=== PATIENT | female | born 1940 | race Caucasian/White ===

== ENCOUNTER 2016-08-18 15:12 | Inpatient (IN) | payer OTHER ==
[~2016-08-18] VITALS: Ht 172.7 cm; Wt 58.5 kg
[~2016-08-18 15:12] MED LIST: CALC-51
[2016-08-18] MEDS ORDERED: SODIUM CHLORIDE 0.9% 1000ML 1,000 ML IV STA (15:18)
--- NOTE | 2016-08-18 15:36 | EMERGENCY ROOM VISIT NOTE ---
History Report prepared by Richard: Jun Young Under the Supervision of: Dr. Ephraim Hoyt M.D. First contact with patient: 15:18 Stated Complaint: WEAKNESS, AB PAIN, UNABLE TO AMBULATE History of Present Illness The patient is a 76 year old female who presents to the Emergency Room with complaints of constant lower left abdominal pain beginning 4-5 days prior to arrival. She currently rates her discomfort as a 5/10 ins severity. The patient associates a fever, diarrhea, global weakness, and a possible bladder infection with today's symptoms. The patient notes she is currently receiving chemotherapy for her bladder and lung cancers. She states her last chemotherapy was four days ago, and she received two pints of blood two days ago. The patient notes it is normal for her to have a blood transfusion after her chemotherapy. She states she recently had C. Diff but is done with the episode. The patient notes she has a nephrostomy tube on her left side that was placed on May 21 of this year. She states she had her three month change for her tube earlier this month. The patient notes she does produce a little of her own urine. She states she takes prednisone and pyridostigmine for her myasthenia. Pt denies LOC, headache, chills, diaphoresis, visual changes, neck pain, chest pain, breathing difficulties, nausea, vomiting, back pain, melena, hematochezia , numbness, lymphadenopathy, rash, or other complaints. Source of History: patient Onset: 4-5 days [employer] Position: abdomen (LLQ) Symptom Intensity: 5/10 Timing: constant Associated Symptoms: + abdominal pain, + diarrhea, + fevers, + weakness ( global) Note: Associated symptoms: possible bladder infection. Review of Systems See HPI for pertinent positives and negatives. A total of ten systems were reviewed and were otherwise negative. Past Medical & Surgical Medical Problems: (1) Bladder cancer (2) Chronic steroid use (3) CKD (chronic kidney disease), stage III (4) Colitis (5) COPD (chronic obstructive pulmonary disease) (6) Diabetes (7) Dyslipidemia (8) Febrile neutropenia (9) Hypothyroidism (10) Lung cancer (11) Myasthenia gravis (12) Nodule of right lung (13) Osteoporosis Surgical Problems: (1) Hx of tonsillectomy (2) S/P tonsillectomy and adenoidectomy Family History Cancer Social History Smoking Status: Former Smoker Marital Status: single Occupation Status: retired Current/Historical Medications Scheduled Calcium Carbonate-Cholecalcife (Caltrate 600+D), 2 TABS PO DAILY Cholecalciferol (Vitamin D 400 Iu), 400 INTER.UNIT PO DAILY Levothyroxine Sodium (Levothyroxine Sodium), 1 TAB PO DAILY Multivitamin (Multivitamin), 1 TAB PO DAILY Prednisone (Prednisone), 20 MG PO QD Pyridostigmine Carlin (Mestinon), 180 MG PO BID Scheduled PRN Ondansetron Hcl (Zofran), 8 MG PO TID PRN for Nausea Prochlorperazine Maleate (Compazine), 10 MG PO Q6H PRN for Nausea Allergies Coded Allergies: Statins (Unverified Adverse Reaction, Unknown, MUSCLE PAIN, 08/18/16) Physical Exam Vital Signs Date Time Temp Pulse Resp B/P Pulse Ox O2 Delivery O2 Flow Rate FiO2 08/18/16 19:38 93 08/18/16 19:07 86 23 95 08/18/16 19:02 86 36 95 08/18/16 18:58 123/41 08/18/16 18:57 86 30 96 08/18/16 18:52 87 32 95 08/18/16 18:47 86 25 96 08/18/16 18:42 91 26 94 08/18/16 18:37 92 30 97 08/18/16 18:32 85 19 94 08/18/16 18:27 86 19 94 08/18/16 18:22 86 19 94 08/18/16 18:17 83 18 94 08/18/16 18:12 83 19 94 08/18/16 18:07 86 21 94 08/18/16 18:02 86 24 95 08/18/16 17:59 107/26 08/18/16 17:57 84 35 95 08/18/16 17:52 83 25 95 08/18/16 17:47 88 31 95 08/18/16 17:42 88 28 95 08/18/16 17:41 101/41 08/18/16 16:58 133/62 08/18/16 16:57 80 16 95 08/18/16 16:52 83 17 94 08/18/16 16:47 83 19 94 08/18/16 16:42 82 24 94 08/18/16 16:37 86 20 93 08/18/16 16:32 82 31 95 08/18/16 16:27 86 36 96 08/18/16 16:22 81 38 96 08/18/16 16:17 84 35 95 08/18/16 16:12 81 29 96 08/18/16 16:07 78 35 95 08/18/16 16:02 83 24 96 08/18/16 15:58 125/65 08/18/16 15:57 83 29 96 08/18/16 15:52 87 23 96 08/18/16 15:47 99 26 95 08/18/16 15:42 91 30 95 08/18/16 15:37 89 24 95 08/18/16 15:36 89 08/18/16 15:32 88 16 95 08/18/16 15:27 86 15 97 08/18/16 15:23 37.3 89 25 127/63 96 Room Air 08/18/16 15:22 93 21 96 08/18/16 15:20 127/63 Physical Exam GENERAL: Awake, alert, tired-appearing, in no distress HENT: Normocephalic, atraumatic. Oropharynx unremarkable. EYES: Normal conjunctiva. Sclera non-icteric. NECK: Supple. No nuchal rigidity. FROM. No JVD. RESPIRATORY: Clear to auscultation. CARDIAC: Regular rate, normal rhythm. Extremities warm and well perfused. Pulses equal. ABDOMEN: Soft, non-distended. Lower left quadrant tenderness to palpation. No rebound or guarding. No masses. : Left nephrostomy tube without any redness, drainage, or tenderness. RECTAL: Deferred. MUSCULOSKELETAL: Chest examination reveals no tenderness. The back is symmetrical on inspection without obvious abnormality. There is no CVA tenderness to palpation. No joint edema. LOWER EXTREMITIES: Calves are equal size bilaterally and non-tender. No edema. No discoloration. NEURO: Normal sensorium. No sensory or motor deficits noted. SKIN: No rash or jaundice noted. Medical Decision & Procedures ER Provider Diagnostic Interpretation: CT: Radiology results as stated below per my review and radiologist interpretation CT SCAN OF THE ABDOMEN AND PELVIS WITHOUT CONTRAST CLINICAL HISTORY: Left abd pain, possible UTI, Left Nephrostomy, Bladder CA COMPARISON STUDY: 04/28/2016 TECHNIQUE: CT scan of the abdomen and pelvis was performed from the lung bases to the proximal femurs. Images are reviewed in the axial, sagittal, and coronal planes. IV contrast was not administered for this examination. CT DOSE: 271.08 mGy.cm FINDINGS: Lower chest: There is underlying emphysema. There is a stable 4 mm right lower lobe pulmonary nodule. Liver: There is a stable 11 mm hypodensity within the hepatic dome. There is trace perihepatic fluid. There is a stable 19 mm hypodensity within the right hepatic lobe. These lesions approach water attenuation and likely represent cysts. Gallbladder: Cholelithiasis Spleen: Normal in size and attenuation. Pancreas: Unremarkable. Adrenal glands: Unremarkable. Kidneys: There is a 15 mm upper pole left renal cyst. There is residual a left-sided nephrostomy tube. There is no significant hydronephrosis. No ureteral or bladder calculi are visualized. Bowel: There are no transition zones indicate bowel obstruction. There is scott diverticulosis. There is diffuse colonic wall thickening with areas of infiltration involving the pericolonic fat. The findings are suggestive of a pancolitis. Peritoneum: There is trace free fluid. No free air is visualized. Vasculature: The abdominal aorta is normal in course and caliber. Adenopathy: None. Pelvic viscera: The bladder, and pelvic viscera are unremarkable. Skeletal structures: No destructive osseous lesions are seen. IMPRESSION: 1. No evidence of bowel obstruction. No evidence of free air 2. Scott diverticulosis 3. Diffuse colonic wall thickening with infiltration of the pericolonic fat. The findings are indicative of a pancolitis 4. Cholelithiasis 5. Trace ascites 6. Stable 4 mm right lower lobe pulmonary nodule Electronically signed by: Julio C Levy M.D. 08/18/2016 5:43 PM Laboratory Results 08/18/16 16:18 Red Blood Count 3.85, Mean Corpuscular Volume 90.4, Mean Corpuscular Hemoglobin 31.7, Mean Corpuscular Hemoglobin Concent 35.1, Mean Platelet Volume 10.0, Neutrophils (%) (Auto) 78.6, Lymphocytes (%) (Auto) 8.1, Monocytes (%) (Auto) 10.8, Eosinophils (%) (Auto) 0.3, Basophils (%) (Auto) 0.3, Neutrophils # (Auto ) 2.83, Lymphocytes # (Auto) 0.29, Monocytes # (Auto) 0.39, Eosinophils # (Auto ) 0.01, Basophils # (Auto) 0.01 08/18/16 16:18 Test 08/18/16 15:55 08/18/16 16:18 Urine Color YELLOW Urine Appearance TURBID (CLEAR) Urine pH >= 9.0 (4.5-7.5) Urine Specific [place] 1.014 (1.000-1.030) Urine Protein 4+ (NEG) Urine Glucose (UA) 2+ (NEG) Urine Ketones NEG (NEG) Urine Occult Blood NEG (NEG) Urine Nitrite NEG (NEG) Urine Bilirubin NEG (NEG) Urine Urobilinogen NEG (NEG) Urine Leukocyte Esterase TRACE (NEG) Urine WBC (Auto) 5-10 /hpf (0-5) Urine RBC (Auto) 10-30 /hpf (0-4) Urine Hyaline Casts (Auto) 5-10 /lpf (0-5) Urine Epithelial Cells (Auto) >30 /lpf (0-5) Urine Bacteria (Auto) 4+ (NEG) Urine Crystals TRIPLE PHOSPHATE Urine Pathogenic Casts /lpf (0) Urine Yeast (Auto) PRESENT (NONE PRSENT) White Blood Count 3.60 K/uL (4.8-10.8) Red Blood Count 3.85 M/uL (4.2-5.4) Hemoglobin 12.2 g/dL (12.0-16.0) Hematocrit 34.8 % (37-47) Mean Corpuscular Volume 90.4 fL (80-100) Mean Corpuscular Hemoglobin 31.7 pg (25-34) Mean Corpuscular Hemoglobin Concent 35.1 g/dl (32-36) Platelet Count 129 K/uL (130-400) Mean Platelet Volume 10.0 fL (7.4-10.4) Neutrophils (%) (Auto) 78.6 % Lymphocytes (%) (Auto) 8.1 % Monocytes (%) (Auto) 10.8 % Eosinophils (%) (Auto) 0.3 % Basophils (%) (Auto) 0.3 % Neutrophils # (Auto) 2.83 K/uL (1.4-6.5) Lymphocytes # (Auto) 0.29 K/uL (1.2-3.4) Monocytes # (Auto) 0.39 K/uL (0.11-0.59) Eosinophils # (Auto) 0.01 K/uL (0-0.5) Basophils # (Auto) 0.01 K/uL (0-0.2) RDW Standard Deviation 64.6 fL (36.4-46.3) RDW Coefficient of Variation 19.9 % (11.5-14.5) Immature Granulocyte % (Auto) 1.9 % Immature Granulocyte # (Auto) 0.07 K/uL (0.00-0.02) Nucleated RBC Absolute Count (auto) 0.02 K/uL (0-0) Nucleated Red Blood Cells % 0.5 % Anisocytosis PRESENT Macrocytosis PRESENT Anion Gap 11.0 mmol/L (3-11) Est Creatinine Clear Calc Drug Dose 57.6 ml/min Estimated GFR () 64.0 Estimated GFR (Non- 55.3 BUN/Creatinine Ratio 19.9 (10-20) Calcium Level 8.5 mg/dl (8.5-10.1) Magnesium Level 2.0 mg/dl (1.8-2.4) Total Bilirubin 0.8 mg/dl (0.2-1) Direct Bilirubin 0.2 mg/dl (0-0.2) Aspartate Amino Transf (AST/SGOT) 23 U/L (15-37) Alanine Aminotransferase (ALT/SGPT) 17 U/L (12-78) Alkaline Phosphatase 57 U/L (45-117) Troponin I < 0.015 ng/ml (0-0.045) Total Protein 5.8 gm/dl (6.4-8.2) Albumin 2.3 gm/dl (3.4-5.0) Lipase 94 U/L (73-393) Laboratory results reviewed by me Medications Administered Medications (Trade) Dose Ordered Sig/Nga Route Start Time Stop Time Status Last Admin Dose Admin Sodium Chloride (Nss 1000ml) 1,000 ml @ 125 mls/hr Q8H STAT IV 08/18/16 15:18 08/18/16 21:46 DC 08/18/16 16:34 125 MLS/HR Ciprofloxacin/ Dextrose (Cipro / D5w) 400 mg NOW STAT IV 08/18/16 18:26 08/18/16 18:28 DC 08/18/16 19:09 400 MG Metronidazole (Flagyl / Nss) 500 mg NOW STAT IV 08/18/16 18:26 08/18/16 18:28 DC 08/18/16 20:58 500 MG Pyridostigmine Carlin (Mestinon Tab) 180 mg BID PO 08/18/16 20:00 09/17/16 19:59 08/18/16 22:24 180 MG ECG Indication: weakness Rate (beats per minute): 87 Rhythm: normal sinus Findings: no acute ischemic change, no ectopy ED Course 1518: Ordered Sodium Chloride 1,000 ml @ 125 mls/hr IV. 1522: The patient was evaluated in room B10. A complete history and physical exam was performed. 1826: Ordered Flagyl / Nss 500 mg IV, Cipro / D5w 400 mg IV. 1836: Reevaluated the patient at this time, and she is feeling better. 1853: I spoke to Mirian Mancini PA-C, [facility] (Hospitalist) about the patient's case, and she will follow the patient for further evaluation. Medical Decision Triage Nursing notes reviewed. The patient's presentation and history were concerning for abdominal pain and weakness. Etiologies such as metabolic, infection, hypo/hyperglycemia, electrolyte abnormalities, cardiac sources, intracerebral event, toxicologic, neurologic, as well as others were entertained. The patient was evaluated. Her nephrostomy site appeared to be doing quite well from the outside. She was generally weak. She is more tender on the left side. Laboratory testing revealed a slight leukopenia and thrombocytopenia. The patient's urinalysis obtained from nephrostomy site was very concerning for infection. I did have a culture obtained from a fem-cath and a culture obtained from the nephrostomy. The patient underwent CT imaging which did reveal a pancolitis. She did not give a stool specimen. She was started on IV Cipro and IV Flagyl. She is generally weak and will need further evaluation and management in the hospital. The patient was hydrated with saline as well. She declined any analgesia. Consultation was made with the [facility] service. The patient was evaluated in the Emergency Room for further management. The chart was completed utilizing [employer] Speech voice recognition software. Grammatical errors, random word insertions, pronoun errors, and incomplete sentences are an occasional consequence of this system due to software limitations, ambient noise, and hardware issues. Any formal questions or concerns about the content, text, or information contained within the body of this dictation should be directly addressed to the physician for clarification. Consults Time Called: 1850 Consulting Physician: Mirian Mancini PA-C, [facility] (Hospitalist) Returned Call: 1852 I spoke to Mirian Mancini PA-C, [facility] (Hospitalist) about the patient's case, and she will follow the patient for further evaluation. Impression Primary Impression: Pancolitis Additional Impressions: UTI (urinary tract infection), Weakness Scribe Attestation The scribe's documentation has been prepared under my direction and personally reviewed by me in its entirety. I confirm that the note above accurately reflects all work, treatment, procedures, and medical decision making performed by me. Departure Information Dispostion Being Evaluated By Hospitalist (Mirian Mancini PA-C, [facility] (Hospitalist)) Referrals John Jaimes M.D. (PCP)
[2016-08-18 16:22] LABS: URINE APPEARANCE TURBID (CLEAR); URINE BILIRUBIN NEG (NEG); URINE COLOR YELLOW; URINE EPITHELIAL CELL AUTO >30 /lpf (0-5); URINE NITRITE NEG (NEG); URINE PH >= 9.0 (4.5-7.5); URINE SPECIFIC GRAVITY 1.014 (1.000-1.030); UROBILINOGEN NEG (NEG)
[2016-08-18 16:28] LABS: HEMATOCRIT 34.8 % (37-47); MEAN CELL VOLUME 90.4 fL (80-100); MEAN CORPUSCULAR HEMOGLOBIN 31.7 pg (25-34); MEAN CORPUSCULAR HGB CONC 35.1 g/dl (32-36); PLATELET COUNT 129 K/uL (130-400); RED BLOOD COUNT 3.85 M/uL (4.2-5.4)
[2016-08-18 16:44] LABS: ALT/SGPT 17 U/L (12-78); BLOOD UREA NITROGEN 20 mg/dl (7-18); BUN/CREATININE RATIO 19.9 (10-20); CALCIUM 8.5 mg/dl (8.5-10.1); CARBON DIOXIDE 24 mmol/L (21-32); CHLORIDE 100 mmol/L (98-107); CREATININE 0.98 mg/dl (0.60-1.20); GLUCOSE 99 mg/dl (70-99); POTASSIUM 3.9 mmol/L (3.5-5.1); SODIUM 135 mmol/L (136-145)
[2016-08-18 16:47] LABS: ALKALINE PHOSPHATASE 57 U/L (45-117); AST/SGOT 23 U/L (15-37)
[2016-08-18 16:50] LABS: ANISOCYTOSIS PRESENT; BASO % 0.3 %; BASO ABS # 0.01 K/uL (0-0.2); COMPLETE YES; EOS % 0.3 %; IG% 1.9 %; LYMPH % 8.1 %; LYMPH ABS # 0.29 K/uL (1.2-3.4); MONO % 10.8 %; NEUT % 78.6 %
[2016-08-18 16:51] LABS: MANUAL MICROSCOPIC REQUIRED? NO; REVIEW REQ? YES; SULFASALICYLIC ACID POS (NEG)
--- NOTE | 2016-08-18 17:45 | DIAGNOSTIC IMAGING REPORT ---
CT SCAN OF THE ABDOMEN AND PELVIS WITHOUT CONTRAST CLINICAL HISTORY: Left abd pain, possible UTI, Left Nephrostomy, Bladder CA COMPARISON STUDY: 04/28/2016 TECHNIQUE: CT scan of the abdomen and pelvis was performed from the lung bases to the proximal femurs. Images are reviewed in the axial, sagittal, and coronal planes. IV contrast was not administered for this examination. CT DOSE: 271.08 mGy.cm FINDINGS: Lower chest: There is underlying emphysema. There is a stable 4 mm right lower lobe pulmonary nodule. Liver: There is a stable 11 mm hypodensity within the hepatic dome. There is trace perihepatic fluid. There is a stable 19 mm hypodensity within the right hepatic lobe. These lesions approach water attenuation and likely represent cysts. Gallbladder: Cholelithiasis Spleen: Normal in size and attenuation. Pancreas: Unremarkable. Adrenal glands: Unremarkable. Kidneys: There is a 15 mm upper pole left renal cyst. There is residual a left-sided nephrostomy tube. There is no significant hydronephrosis. No ureteral or bladder calculi are visualized. Bowel: There are no transition zones indicate bowel obstruction. There is scott diverticulosis. There is diffuse colonic wall thickening with areas of infiltration involving the pericolonic fat. The findings are suggestive of a pancolitis. Peritoneum: There is trace free fluid. No free air is visualized. Vasculature: The abdominal aorta is normal in course and caliber. Adenopathy: None. Pelvic viscera: The bladder, and pelvic viscera are unremarkable. Skeletal structures: No destructive osseous lesions are seen. IMPRESSION: 1. No evidence of bowel obstruction. No evidence of free air 2. Scott diverticulosis 3. Diffuse colonic wall thickening with infiltration of the pericolonic fat. The findings are indicative of a pancolitis 4. Cholelithiasis 5. Trace ascites 6. Stable 4 mm right lower lobe pulmonary nodule Electronically signed by: Julio C Levy M.D. 08/18/2016 5:43 PM
[2016-08-18] MEDS ORDERED: METRONIDAZOLE 500MG / 100ML NSS IV STA (18:26)
[2016-08-18] MEDS ORDERED: CIPROFLOXACIN 400MG / 200ML D5W IV STA (18:26)
--- NOTE | 2016-08-18 19:57 | DIAGNOSTIC IMAGING REPORT ---
CHEST ONE VIEW PORTABLE CLINICAL HISTORY: tachypnea WEAKNESS, ABDOMINAL PAIN. INABILITY TO AMBULATE. COMPARISON STUDY: 06/28/2016 FINDINGS: The cardiac and mediastinal contours remain stable. There are bilateral pulmonary nodules slightly more prominent than on the prior study. There is no lobar consolidation. There is interstitial thickening. There are no pleural effusions.[ IMPRESSION: 1. The patient's bilateral pulmonary nodules appear slightly more prominent. The findings are consistent with metastatic disease 2. No evidence of acute parenchymal consolidation Electronically signed by: Julio C Levy M.D. 08/18/2016 7:55 PM
[2016-08-18] MEDS ORDERED: KETOROLAC TROMETHAMINE 15 MG/ML VIAL IV. PRN (20:15)
[2016-08-18] MEDS ORDERED: ENOXAPARIN 40 MG/0.4 ML SYR SQ SCH (20:15)
[2016-08-18] MEDS ORDERED: LORAZEPAM 2 MG/ML 1 ML VIAL IV PRN (20:15)
[2016-08-18] MEDS ORDERED: CEFEPIME IV 2,000 MG in DEXTROSE 5% 100ML 100 ML IV ONE (20:15)
[2016-08-18] MEDS ORDERED: HYDROmorphone INJ 1 MG/ML SYR IV PRN (20:15)
[2016-08-18] MEDS ORDERED: PROMETHAZINE HCL INJ 12.5 MG in SODIUM CHLORIDE 0.9% 50ML 50 ML IV PRN (20:15)
[2016-08-18] MEDS ORDERED: TRAMADOL HCL 50 MG TAB PO PRN (20:15)
[2016-08-18] MEDS ORDERED: ACETAMINOPHEN 325 MG TAB PO PRN (20:15)
[2016-08-18] MEDS ORDERED: ONDANSETRON INJ 2 MG/ML 2 ML VIAL IV PRN (20:15)
[2016-08-18] MEDS ORDERED: CEFEPIME CONSULT ACTIVE PRN ×2 (20:30)
[2016-08-18] MEDS ORDERED: NSS + 20MEQ KCL 1000ML 1,000 ML IV ONE (21:45)
[2016-08-18 21:52] VITALS: BP 128/67; PULSE 87; TEMP 36.7; O2SAT 92
[2016-08-18] MEDS ORDERED: LORAZEPAM INJ 0.5 MG in SYRINGE 0.75 ML IV PRN (22:00)
[2016-08-18] MEDS ORDERED: CEFEPIME IV 2000 MG in DEXTROSE 5% 100ML IV SCH (22:00)
--- NOTE | 2016-08-18 22:15 | HISTORY & PHYSICAL EXAMINATION ---
DATE OF ADMISSION: 08/18/2016 CHIEF COMPLAINT: Abdominal pain, weakness. Hx obtained from px and records. HISTORY OF PRESENT ILLNESS: Medical history significant for COPD, past tobacco abuse, NSCLC sp chemotx, bladder cancer, status post surgery, radiation, ongoing chemotherapy, chronic anemia, baseline hemoglobin 9, history of C. dif sp Vanco. hx myasthenia gravis on chronic steroid tx, chronic thrombocytopenia Recent confinement last month for neutropenic fever. UA grew pseudomonas. Discharged on Cipro course. Patient also developed C. dif. Dcd on p.o. vancomycin. Since discharge persistent diarrhea symptoms. The last few days increasing generalized weakness, left-sided achy abdominal pain. No cough symptoms, dark urine drainage from L nephrostomy. At the Emergency Room, the patient received Cipro for possible UTI. Flagyl for CT findings of possible colitis. MEDICAL HISTORY: As above. SURGERIES: Urologic procedures, tonsillectomy, adenoidectomy. HOME MEDICATIONS: Includes Caltrate, vitamin D, levothyroxine, multivitamins, Zofran, Compazine, prednisone, Mestinon. ALLERGIES: STATINS. FAMILY HISTORY: Hypertension. PERSONAL AND SOCIAL HISTORY: Past tobacco use. No chronic intake of alcoholic beverages. 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 REVIEW OF SYSTEMS: As per HPI, all other ROS negative. PHYSICAL EXAMINATION: VITAL SIGNS: Blood pressure was noted to be 118/74, pulse rate 88, RR 25, temperature 37.5, sats 96% on room air. GENERAL: Noted to be slightly uncomfortable, anxious, in no respiratory distress, looks younger for stated age. SKIN : pallor HEENT: Pale palpebral conjunctivae. Dry mucosa. NECK: No JVD. supple CHEST: Decreased breath sounds. HEART: Regular rate and rhythm. ABDOMEN: Some distention, tenderness on the left side. EXTREMITIES: No edema. no tenderness NEUROLOGIC: No gross focality. LABS: Hemoglobin was noted to be 12.2, platelets 129. Sodium 140 chloride 100, CO2 24, BUN 20, creatinine 0.9, glucose 100 IMAGING DATA: Chest x-ray, bilateral nodules. CT abdomen and pelvis without contrast showed no bowel obstruction; pancolitis, cholelithiasis. UA showed trace wbcs, esterase, hyaline casts. ASSESSMENT: 1. Generalized weakness immunocompromised patient, hx bladder cancer status post surgery, radiation, ongoing chemotherapy hx lung CA sp chemotx hx myasthenia gravis on chronic steroid tx multifactorial : pancolitis (? recurrent cdif, no sepsis) complicated urinary tract infection (hx Pseudomonas) clinical dehydration 2. chronic obstructive pulmonary disease, past tobacco abuse pulmo status at baseline 3. chronic thrombocytopenia 2 to chemotx. PLAN: GMF IVF. Follow urine cultures. Cefepime for now with Pseudomonas hx stool cdif, Flagyl for presumptive C. dif for now . Discontinue Flagyl if no C. dif. PT, OT evals. DVT prophylaxis, SCDs RE thrombocytopenia. Full code. MTDD
[2016-08-18] MEDS: PYRIDOSTIGMINE BROMIDE 60 MG TAB PO SCH (22:24)
[2016-08-18 23:59] VITALS: O2SAT 95
[2016-08-19] MEDS: LEVOTHYROXINE 100 MCG TAB PO SCH (05:23)
[2016-08-19 07:21] LABS: HEMATOCRIT 32.2 % (37-47); MEAN CELL VOLUME 90.2 fL (80-100); MEAN CORPUSCULAR HEMOGLOBIN 31.4 pg (25-34); MEAN CORPUSCULAR HGB CONC 34.8 g/dl (32-36); RED BLOOD COUNT 3.57 M/uL (4.2-5.4); WHITE BLOOD COUNT 4.96 K/uL (4.8-10.8)
[2016-08-19 07:41] LABS: MEAN PLATELET VOLUME 9.6 fL (7.4-10.4); PLATELET COUNT 86 K/uL (130-400)
[2016-08-19 07:48] LABS: BUN/CREATININE RATIO 16.9 (10-20); CALCIUM 7.7 mg/dl (8.5-10.1); CREATININE 0.85 mg/dl (0.60-1.20); POTASSIUM 3.8 mmol/L (3.5-5.1)
[2016-08-19] MEDS: METRONIDAZOLE / NSS 500 MG in PREMIXED NSS 100 ML IV SCH ×3 (07:54→23:53)
[2016-08-19] MEDS: PYRIDOSTIGMINE BROMIDE 60 MG TAB PO SCH ×2 (07:54→20:15)
[2016-08-19] MEDS: MULTIVITAMIN TAB PO SCH (07:54)
[2016-08-19 07:59] VITALS: BP 144/71; PULSE 88; TEMP 37.2; O2SAT 94
[2016-08-19 08:02] LABS: ANISOCYTOSIS PRESENT; COMPLETE YES; DOHLE BODIES 1+; LYMPHOCYTE % 6.1 %; META ABS # 0.04 K/uL (0-0); METAMYELOCYTE % 0.9 %; MYELOCYTE % 1.8 %; NEUTROPHILS % 83.3 %
[2016-08-19] MEDS ORDERED: CEFEPIME IV 2000 MG in DEXTROSE 5% 100ML IV SCH (10:00)
[2016-08-19 11:22] VITALS: BP 111/57; PULSE 67; TEMP 37.1; O2SAT 93
[2016-08-19 15:31] VITALS: BP 113/63; PULSE 71; TEMP 36.3; O2SAT 96
--- NOTE | 2016-08-19 15:43 | Progress Note ---
Internal Med Progress Note Date of Service: Aug 19, 2016. Provider Documentation: SUBJECTIVE: The patient was seen and examined Complains some abdominal pain but better than yeaterday No Fever,Chills Has diarrhea OBJECTIVE: Vital Signs-as noted below Exam: General-No distress at rest Eyes-normal ENT-normal Neck-supple Lungs-Clear to auscultate bilaterally Heart-Regular,no murmur Abdomen-Benign,mildly tender left lower quadrant,bowel sound present Extremities-No edema Neuro-AAOx3 Lab data as noted below. ASSESSMENT & PLAN: C Diff Colitis Diarrhea with Abdominal pain Has been on Flagyl-will continue for now Recent C Diff infection ~1month ago Not toxic Clinically better Generalized weakness -immunocompromised patient, -hx bladder cancer status post surgery, radiation, ongoing chemotherapy -hx lung CA sp chemotx -hx myasthenia gravis on chronic steroid tx -complicated by C Diff colitis UTI Ruled out D/C Cefepime Chronic obstructive pulmonary disease, past tobacco abuse -pulmo status at baseline Continue current medication Chronic thrombocytopenia 2 to chemotx. DVT prophylaxis, SCDs RE thrombocytopenia. . Full code. DISPOSITION PT/OT evaluation Vital Signs: Date Time Temp Pulse Resp B/P Pulse Ox O2 Delivery O2 Flow Rate FiO2 08/19/16 15:31 36.3 71 16 113/63 96 08/19/16 11:22 37.1 67 20 111/57 93 08/19/16 08:00 Room Air 08/19/16 07:59 37.2 88 20 144/71 94 08/18/16 23:59 95 Room Air 08/18/16 21:52 36.7 87 18 128/67 92 Room Air 08/18/16 21:35 88 25 118/74 95 08/18/16 21:04 Room Air 08/18/16 20:58 88 25 118/74 95 Room Air 08/18/16 19:38 93 08/18/16 19:07 86 23 95 08/18/16 19:02 86 36 95 08/18/16 18:58 123/41 08/18/16 18:57 86 30 96 08/18/16 18:52 87 32 95 08/18/16 18:47 86 25 96 08/18/16 18:42 91 26 94 08/18/16 18:37 92 30 97 08/18/16 18:32 85 19 94 08/18/16 18:27 86 19 94 12/31/16 18:22 86 19 94 08/18/16 18:17 83 18 94 08/18/16 18:12 83 19 94 08/18/16 18:07 86 21 94 08/18/16 18:02 86 24 95 08/18/16 17:59 107/26 08/18/16 17:57 84 35 95 08/18/16 17:52 83 25 95 08/18/16 17:47 88 31 95 08/18/16 17:42 88 28 95 08/18/16 17:41 101/41 08/18/16 16:58 133/62 08/18/16 16:57 80 16 95 08/18/16 16:52 83 17 94 08/18/16 16:47 83 19 94 08/18/16 16:42 82 24 94 08/18/16 16:37 86 20 93 08/18/16 16:32 82 31 95 08/18/16 16:27 86 36 96 08/18/16 16:22 81 38 96 08/18/16 16:17 84 35 95 08/18/16 16:12 81 29 96 08/18/16 16:07 78 35 95 08/18/16 16:02 83 24 96 08/18/16 15:58 125/65 08/18/16 15:57 83 29 96 08/18/16 15:52 87 23 96 08/18/16 15:47 99 26 95 08/18/16 15:42 91 30 95 08/18/16 15:37 89 24 95 08/18/16 15:36 89 Lab Results: Results Past 24 Hours Test 08/18/16 15:55 08/18/16 16:18 08/19/16 07:02 Range/Units Urine Color YELLOW Urine Appearance TURBID CLEAR Urine pH >= 9.0 4.5-7.5 Urine Specific [place] 1.014 1.000-1.030 Urine Protein 4+ NEG Urine Glucose (UA) 2+ NEG Urine Ketones NEG NEG Urine Occult Blood NEG NEG Urine Nitrite NEG NEG Urine Bilirubin NEG NEG Urine Urobilinogen NEG NEG Urine Leukocyte Esterase TRACE NEG Urine WBC (Auto) 5-10 0-5 /hpf Urine RBC (Auto) 10-30 0-4 /hpf Urine Hyaline Casts (Auto) 5-10 0-5 /lpf Urine Epithelial Cells (Auto) >30 0-5 /lpf Urine Bacteria (Auto) 4+ NEG Urine Crystals TRIPLE PHOSPHATE NONE PRSENT Urine Pathogenic Casts 0 /lpf Urine Yeast (Auto) PRESENT NONE PRSENT White Blood Count 3.60 4.96 4.8-10.8 K/uL Red Blood Count 3.85 3.57 4.2-5.4 M/uL Hemoglobin 12.2 11.2 12.0-16.0 g/dL Hematocrit 34.8 32.2 37-47 % Mean Corpuscular Volume 90.4 90.2 80-100 fL Mean Corpuscular Hemoglobin 31.7 31.4 25-34 pg Mean Corpuscular Hemoglobin Concent 35.1 34.8 32-36 g/dl Platelet Count 129 86 130-400 K/uL Mean Platelet Volume 10.0 9.6 7.4-10.4 fL Neutrophils (%) (Auto) 78.6 % Lymphocytes (%) (Auto) 8.1 % Monocytes (%) (Auto) 10.8 % Eosinophils (%) (Auto) 0.3 % Basophils (%) (Auto) 0.3 % Neutrophils # (Auto) 2.83 1.4-6.5 K/uL Lymphocytes # (Auto) 0.29 1.2-3.4 K/uL Monocytes # (Auto) 0.39 0.11-0.59 K/uL Eosinophils # (Auto) 0.01 0-0.5 K/uL Basophils # (Auto) 0.01 0-0.2 K/uL RDW Standard Deviation 64.6 63.5 36.4-46.3 fL RDW Coefficient of Variation 19.9 19.4 11.5-14.5 % Immature Granulocyte % (Auto) 1.9 % Immature Granulocyte # (Auto) 0.07 0.00-0.02 K/uL Nucleated RBC Absolute Count (auto) 0.02 0-0 K/uL Nucleated Red Blood Cells % 0.5 % Anisocytosis PRESENT PRESENT Macrocytosis PRESENT Sodium Level 135 134 136-145 mmol/L Potassium Level 3.9 3.8 3.5-5.1 mmol/L Chloride Level 100 104 98-107 mmol/L Carbon Dioxide Level 24 20 21-32 mmol/L Anion Gap 11.0 10.0 3-11 mmol/L Blood Urea Nitrogen 20 14 7-18 mg/dl Creatinine 0.98 0.85 0.60-1.20 mg/dl Est Creatinine Clear Calc Drug Dose 57.6 66.5 ml/min Estimated GFR () 64.0 76.1 Estimated GFR (Non- 55.3 65.6 BUN/Creatinine Ratio 19.9 16.9 10-20 Random Glucose 99 75 70-99 mg/dl Calcium Level 8.5 7.7 8.5-10.1 mg/dl Magnesium Level 2.0 1.8-2.4 mg/dl Total Bilirubin 0.8 0.2-1 mg/dl Direct Bilirubin 0.2 0-0.2 mg/dl Aspartate Amino Transf (AST/SGOT) 23 15-37 U/L Alanine Aminotransferase (ALT/SGPT) 17 12-78 U/L Alkaline Phosphatase 57 45-117 U/L Troponin I < 0.015 0-0.045 ng/ml Total Protein 5.8 6.4-8.2 gm/dl Albumin 2.3 3.4-5.0 gm/dl Lipase 94 73-393 U/L Neutrophils % (Manual) 83.3 % Lymphocytes % (Manual) 6.1 % Monocytes % (Manual) 7.9 % Metamyelocytes % 0.9 % Myelocytes % 1.8 % Neutrophils # (Manual) 4.13 1.4-6.5 K/uL Total Absolute Neutrophils 4.13 1.4-6.5 K/uL Lymphocytes # (Manual) 0.30 1.2-3.4 K/uL Total Absolute Lymphocytes 0.30 1.2-3.4 K/uL Monocytes # (Manual) 0.39 0.11-0.59 K/uL Metamyelocytes # 0.04 0-0 K/uL Myelocytes # 0.09 0-0 K/uL Dohle Bodies 1+ Microbiology Results 08/19/16 C.difficile Toxin B Gene (PCR) - Final, Complete Positive for C. difficile toxin B gene 08/18/16 Urine Culture - Preliminary, Resulted PIN-POINT GROWTH PRESENT, REINCUBATING. 08/18/16 Urine Culture - Preliminary, Resulted Alpha Strep. Not Enterococcus
[2016-08-19 20:10] VITALS: BP 118/60; PULSE 71; TEMP 36.6; O2SAT 98
[2016-08-20] VITALS (7 sets, daily range): BP systolic 101–154; BP diastolic 56–73; PULSE 65–74; TEMP 36.4–36.7; O2SAT 93–99; BMI 19.3
[2016-08-20] MEDS: LEVOTHYROXINE 100 MCG TAB PO SCH (05:55)
[2016-08-20 07:20] LABS: HEMATOCRIT 32.1 % (37-47); MEAN CELL VOLUME 89.7 fL (80-100); MEAN CORPUSCULAR HGB CONC 34.6 g/dl (32-36); RED BLOOD COUNT 3.58 M/uL (4.2-5.4)
[2016-08-20 07:25] LABS: MEAN PLATELET VOLUME 9.6 fL (7.4-10.4); PLATELET COUNT 77 K/uL (130-400)
[2016-08-20] MEDS: METRONIDAZOLE / NSS 500 MG in PREMIXED NSS 100 ML IV SCH ×2 (07:42→16:08)
[2016-08-20 07:43] LABS: COMPLETE YES; DOHLE BODIES 1+; ECHINOCYTES 1+; LYMPH ABS # 0.09 K/uL (1.2-3.4); LYMPHOCYTE % 0.9 %; META ABS # 0.27 K/uL (0-0); METAMYELOCYTE % 2.6 %; MYELOCYTE % 0.9 %; NEUTROPHILS % 90.4 %; TOXIC GRANULATION 1+
[2016-08-20] MEDS: PYRIDOSTIGMINE BROMIDE 60 MG TAB PO SCH ×2 (07:43→20:16)
[2016-08-20] MEDS: MULTIVITAMIN TAB PO SCH (07:43)
[2016-08-20 07:48] LABS: BUN/CREATININE RATIO 18.9 (10-20); CALCIUM 7.8 mg/dl (8.5-10.1); CREATININE 0.76 mg/dl (0.60-1.20); POTASSIUM 3.3 mmol/L (3.5-5.1)
--- NOTE | 2016-08-20 14:41 | Progress Note ---
Internal Med Progress Note Date of Service: Aug 20, 2016. Provider Documentation: SUBJECTIVE: The patient was seen and examined Complains some abdominal pain but better than yesterday ,08/18/16 No Fever,Chills Still has diarrhea with occasional incontinence of bowel Generally weak OBJECTIVE: Vital Signs-as noted below Exam: General-No distress at rest Eyes-normal ENT-normal Neck-supple Lungs-Clear to auscultate bilaterally Heart-Regular,no murmur Abdomen-Benign,mildly tender left lower quadrant,soft,bowel sound present Extremities-No edema Neuro-AAOx3 Lab data as noted below. ASSESSMENT & PLAN: C Diff Colitis -recurrent Diarrhea with Abdominal pain-a little better Has been on IV Flagyl-will continue for now Recent C Diff infection ~1month ago Not septic and or Toxic Clinically better now Continue with IV Flagyl Generalized weakness -immunocompromised patient, -hx bladder cancer status post surgery, radiation, ongoing chemotherapy -hx lung CA sp chemotx -hx myasthenia gravis on chronic steroid tx -complicated by C Diff colitis -will need PT/OT subsequently UTI Ruled out -mixed emily and asymptomatic D/C Cefepime Chronic obstructive pulmonary disease, past tobacco abuse -pulmo status at baseline Continue current medication Chronic thrombocytopenia 2 to chemotx. Worsening count Monitor DVT prophylaxis, SCDs RE thrombocytopenia. . Full code. DISPOSITION PT/OT evaluation Vital Signs: Date Time Temp Pulse Resp B/P Pulse Ox O2 Delivery O2 Flow Rate FiO2 08/20/16 11:15 36.6 72 18 109/69 95 Room Air 08/20/16 07:51 Room Air 08/20/16 07:33 36.6 72 18 101/56 95 Room Air 08/20/16 00:53 36.6 72 17 117/72 93 Room Air 08/20/16 00:00 Room Air 08/19/16 20:10 36.6 71 16 118/60 98 Room Air 08/19/16 15:40 Room Air 08/19/16 15:31 36.3 71 16 113/63 96 Lab Results: Results Past 24 Hours Test 08/20/16 06:20 Range/Units White Blood Count 10.20 4.8-10.8 K/uL Red Blood Count 3.58 4.2-5.4 M/uL Hemoglobin 11.1 12.0-16.0 g/dL Hematocrit 32.1 37-47 % Mean Corpuscular Volume 89.7 80-100 fL Mean Corpuscular Hemoglobin 31.0 25-34 pg Mean Corpuscular Hemoglobin Concent 34.6 32-36 g/dl Platelet Count 77 130-400 K/uL Mean Platelet Volume 9.6 7.4-10.4 fL RDW Standard Deviation 62.1 36.4-46.3 fL RDW Coefficient of Variation 19.1 11.5-14.5 % Neutrophils % (Manual) 90.4 % Lymphocytes % (Manual) 0.9 % Monocytes % (Manual) 5.2 % Metamyelocytes % 2.6 % Myelocytes % 0.9 % Neutrophils # (Manual) 9.22 1.4-6.5 K/uL Total Absolute Neutrophils 9.22 1.4-6.5 K/uL Lymphocytes # (Manual) 0.09 1.2-3.4 K/uL Total Absolute Lymphocytes 0.09 1.2-3.4 K/uL Monocytes # (Manual) 0.53 0.11-0.59 K/uL Metamyelocytes # 0.27 0-0 K/uL Myelocytes # 0.09 0-0 K/uL Toxic Granulation 1+ Dohle Bodies 1+ Echinocytes 1+ Sodium Level 135 136-145 mmol/L Potassium Level 3.3 3.5-5.1 mmol/L Chloride Level 103 98-107 mmol/L Carbon Dioxide Level 21 21-32 mmol/L Anion Gap 11.0 3-11 mmol/L Blood Urea Nitrogen 14 7-18 mg/dl Creatinine 0.76 0.60-1.20 mg/dl Est Creatinine Clear Calc Drug Dose 55.6 ml/min Estimated GFR () 87.1 Estimated GFR (Non- 75.1 BUN/Creatinine Ratio 18.9 10-20 Random Glucose 104 70-99 mg/dl Calcium Level 7.8 8.5-10.1 mg/dl Magnesium Level 2.0 1.8-2.4 mg/dl
[2016-08-21] MEDS: METRONIDAZOLE / NSS 500 MG in PREMIXED NSS 100 ML IV SCH ×3 (00:10→16:40)
[2016-08-21 04:01] VITALS: BP 153/73; PULSE 74; TEMP 36.7; O2SAT 97
[2016-08-21] MEDS: LEVOTHYROXINE 100 MCG TAB PO SCH (05:55)
[2016-08-21 06:38] LABS: HEMATOCRIT 32.3 % (37-47); MEAN CORPUSCULAR HEMOGLOBIN 31.4 pg (25-34); MEAN CORPUSCULAR HGB CONC 35.3 g/dl (32-36); RED BLOOD COUNT 3.63 M/uL (4.2-5.4); WHITE BLOOD COUNT 14.99 K/uL (4.8-10.8)
[2016-08-21 06:42] VITALS: Ht 172.7 cm; Wt 58.5 kg
[2016-08-21 07:06] LABS: MEAN PLATELET VOLUME 10.1 fL (7.4-10.4); PLATELET COUNT 65 K/uL (130-400)
[2016-08-21 07:07] LABS: BUN/CREATININE RATIO 18.7 (10-20); CALCIUM 7.9 mg/dl (8.5-10.1); CREATININE 0.71 mg/dl (0.60-1.20); POTASSIUM 3.2 mmol/L (3.5-5.1)
[2016-08-21 07:35] VITALS: BP 130/65; PULSE 76; TEMP 36.7; O2SAT 97
[2016-08-21] MEDS ORDERED: POTASSIUM PHOS 3 MMOL/1 ML INFUSION IV ONE (08:15)
[2016-08-21] MEDS ORDERED: POTASSIUM PHOSPHATE INJ 21 MMOL in SODIUM CHLORIDE 0.9% 500ML 500 ML IV SCH (08:45)
[2016-08-21] MEDS: PYRIDOSTIGMINE BROMIDE 60 MG TAB PO SCH ×2 (08:51→20:22)
[2016-08-21] MEDS: MULTIVITAMIN TAB PO SCH (08:52)
[2016-08-21 12:29] VITALS: BP 114/61; PULSE 72; TEMP 36.4; O2SAT 97
[2016-08-21 15:48] VITALS: BP 127/68; PULSE 79; TEMP 36.5; O2SAT 97
[2016-08-21 16:15] VITALS: O2SAT 97
--- NOTE | 2016-08-21 16:49 | Progress Note ---
Medicine Progress Note Date & Time of Visit: Aug 21, 2016 at 16:38. Subjective Pt was seen and examined Lying in bed comfortable with no acute distress Pt said that she continue to have diarrhea She said that she feels weak She is being having diarrhea for over a month she said that is her 3rd times with Cdiff in the few months Pt said that she is hungry and she is being on clear liquid diet only. Denies any chest pain, palpitation, dizziness and SOB. Objective Last 8 Hrs Date Time Temp Pulse Resp B/P Pulse Ox O2 Delivery O2 Flow Rate FiO2 08/21/16 15:48 36.5 79 16 127/68 97 Room Air 08/21/16 12:29 36.4 72 18 114/61 97 Room Air Physical Exam: General- No acute distress Head- atraumatic Eyes- PERRL, EOMI ENT- oropharynx clear Neck- supple, no JVD Lungs- clear to auscultation and percussion Heart- regular rhythm; no murmur Abdomen- hypoactive bowel sound, nontender Extremities- no calf tenderness Neuro- alert, oriented x 3; PERRL, EOMI Skin- warm & dry Laboratory Results: Last 24 Hours Test 08/20/16 17:27 08/20/16 20:30 08/21/16 06:10 08/21/16 07:47 Bedside Glucose 210 mg/dl 214 mg/dl 97 mg/dl White Blood Count 14.99 K/uL Red Blood Count 3.63 M/uL Hemoglobin 11.4 g/dL Hematocrit 32.3 % Mean Corpuscular Volume 89.0 fL Mean Corpuscular Hemoglobin 31.4 pg Mean Corpuscular Hemoglobin Concent 35.3 g/dl RDW Standard Deviation 61.8 fL RDW Coefficient of Variation 19.1 % Platelet Count 65 K/uL Mean Platelet Volume 10.1 fL Sodium Level 138 mmol/L Potassium Level 3.2 mmol/L Chloride Level 106 mmol/L Carbon Dioxide Level 23 mmol/L Anion Gap 9.0 mmol/L Blood Urea Nitrogen 13 mg/dl Creatinine 0.71 mg/dl Est Creatinine Clear Calc Drug Dose 59.3 ml/min Estimated GFR () 94.6 Estimated GFR (Non- 81.6 BUN/Creatinine Ratio 18.7 Random Glucose 90 mg/dl Calcium Level 7.9 mg/dl Phosphorus Level 1.0 mg/dl Magnesium Level 2.0 mg/dl Test 08/21/16 11:40 Bedside Glucose 115 mg/dl Assessment & Plan C Diff Colitis -recurrentX3 Diarrhea associated with Abdominal pain that is improved Has been on IV Flagyl Recent C Diff infection ~1month ago Not septic and or Toxic Will consult ID Will advanced diet to full liquid Generalized weakness -immunocompromised patient, -hx bladder cancer status post surgery, radiation, ongoing chemotherapy -hx lung CA sp chemo tx -hx myasthenia gravis on chronic steroid tx -complicated by C Diff colitis -Consult PT/OT Electrolytes imbalance Replaced Continue monitor electrolytes UTI Ruled out -mixed emily and asymptomatic D/C Cefepime Chronic obstructive pulmonary disease, past tobacco abuse -pulmo status at baseline Continue current medication Stable Chronic thrombocytopenia 2 to chemo tx. Worsening count Monitor DVT prophylaxis, SCDs due to thrombocytopenia. . Full code. DISPOSITION PT/OT evaluation Current Inpatient Medications: Current Inpatient Medications Medications (Trade) Dose Ordered Sig/Nga Route Start Time Stop Time Status Last Admin Dose Admin Acetaminophen (Tylenol Tab) 650 mg Q4H PRN PO 08/18/16 20:15 09/17/16 20:14 Levothyroxine Sodium (Synthroid Tab) 100 mcg DAILYBB PO 08/19/16 06:30 09/18/16 06:59 08/21/16 05:55 100 MCG Multivitamins (Multivitamin Tab) 1 tab DAILY PO 08/19/16 08:00 09/18/16 08:59 08/20/16 07:43 1 TAB Prednisone (PredniSONE TAB) 20 mg DAILY PO 08/19/16 08:00 09/18/16 07:59 08/21/16 12:54 20 MG Pyridostigmine [place] 180 mg 180 mg BID PO 08/18/16 20:00 09/17/16 19:59 08/21/16 08:51 180 MG Metronidazole/Prmx (Flagyl / Nss/ Premixed Nss) 100 ml @ 100 mls/hr Q8H IV 08/19/16 08:00 08/29/16 07:59 08/21/16 08:52 100 MLS/HR Ondansetron HCl (Zofran Inj) 4 mg Q6H PRN IV 08/18/16 20:15 09/17/16 20:14 Tramadol HCl (Ultram Tab) 25 mg Q6H PRN PO 08/18/16 20:15 09/17/16 20:14 Ketorolac Tromethamine (Toradol Inj) 15 mg Q6H PRN IV. 08/18/16 20:15 08/23/16 20:14 Hydromorphone HCl (Dilaudid Inj) 0.5 mg Q3H PRN IV 08/18/16 20:15 09/01/16 20:14 Lorazepam 0.5 mg 0.5 mg Q4H PRN IV 08/18/16 20:15 09/17/16 20:14 Promethazine HCl 12.5 mg/Sodium Chloride 50.5 ml @ 204 mls/hr Q6H PRN IV 08/18/16 20:15 09/17/16 20:14 Lorazepam/Syringe (Ativan Inj/ Syringe) 1 ml @ 1 mls/min Q4H PRN IV 08/18/16 22:00 09/17/16 21:59
[2016-08-21 19:45] VITALS: BP 133/62; PULSE 76; TEMP 36.4; O2SAT 97
[2016-08-22] VITALS (7 sets, daily range): BP systolic 125–166; BP diastolic 55–71; PULSE 65–82; TEMP 36.3–36.7; O2SAT 95–99
[2016-08-22] MEDS: METRONIDAZOLE / NSS 500 MG in PREMIXED NSS 100 ML IV SCH ×3 (00:32→15:43)
[2016-08-22 07:11] LABS: HEMATOCRIT 32.2 % (37-47); MEAN CELL VOLUME 90.2 fL (80-100); MEAN CORPUSCULAR HEMOGLOBIN 30.5 pg (25-34); MEAN CORPUSCULAR HGB CONC 33.9 g/dl (32-36); RED BLOOD COUNT 3.57 M/uL (4.2-5.4); WHITE BLOOD COUNT 15.84 K/uL (4.8-10.8)
[2016-08-22 07:28] LABS: MEAN PLATELET VOLUME 10.6 fL (7.4-10.4); PLATELET COUNT 69 K/uL (130-400)
[2016-08-22] MEDS: LEVOTHYROXINE 100 MCG TAB PO SCH (07:32)
[2016-08-22 07:48] LABS: BUN/CREATININE RATIO 18.6 (10-20); CREATININE 0.73 mg/dl (0.60-1.20); MAGNESIUM 2.2 mg/dl (1.8-2.4); POTASSIUM 3.4 mmol/L (3.5-5.1)
[2016-08-22] MEDS: PYRIDOSTIGMINE BROMIDE 60 MG TAB PO SCH ×2 (08:17→19:52)
[2016-08-22] MEDS: MULTIVITAMIN TAB PO SCH (08:17)
[2016-08-22 08:33] LABS: PHOSPHORUS 1.5 mg/dl (2.5-4.9)
--- NOTE | 2016-08-22 16:26 | Medical Consult ---
Consultation Date of Consultation: Aug 22, 2016. Attending Physician: Lis Liriano M.D. Reason for Consultation: Recurrent C. Diff History of Present Illness Patient is a 76 yo female with history of bladder cancer among multiple other medical problems listed below who presented to the ED with concerns of worsening diarrhea. The patient states that she has had C. Diff diarrhea 2 times prior to her current admission. She is unsure of when she initially had it , but states that it was related to her blood counts dropping after chemotherapy. She receives chemotherapy for her bladder cancer. Most recently, the patient was diagnosed with a UTI June 29 and was admitted to the hospital. She was also found to have C. Diff colitis during that admission. She was treated with 14 days of PO Vancomycin at the time and she did improve slightly but states that after discontinuation of the Vancomycin, her symptoms quickly returned. She states that she has not had any nausea, vomiting or abdominal pain but has started to have incontinence of stool even with slight movements. She otherwise is feeling "OK". She denies fever, sweats, or chills. CT scan of the abdomen/pelvis showed no bowel obstruction, no free air, scott diverticulosis, diffuse colonic wall thickening and infiltration of the pericolonic fat, and cholelithiasis.CXR showed bilateral pulmonary nodules consistent with metastatic disease. WBC count on admission was 3.60 and is 15.84 today. Her creatinine is 0.73. Her urine is also growing alpha strep with 4+ bacteria on urinalysis and 5-10 WBCs but no nitrite. Past Medical/Surgical History Medical Problems: (1) Anemia Status: Acute (2) Bladder mass Status: Acute (3) Hematuria Status: Acute (4) Neutropenic fever Status: Acute (5) Pancolitis Status: Acute (6) Severe neutropenia Status: Acute (7) UTI (urinary tract infection) Status: Acute (8) UTI (urinary tract infection) Status: Acute (9) Weakness Status: Acute Medical Problems: (1) Bladder cancer (2) Chronic steroid use (3) CKD (chronic kidney disease), stage III (4) Colitis (5) COPD (chronic obstructive pulmonary disease) (6) Diabetes (7) Dyslipidemia (8) Febrile neutropenia (9) Hypothyroidism (10) Lung cancer (11) Myasthenia gravis (12) Nodule of right lung (13) Osteoporosis Surgical Problems: (1) Hx of tonsillectomy (2) S/P tonsillectomy and adenoidectomy Family History Cancer Noncontributory Social History Smoking Status: Former Smoker Marital Status: single Occupation Status: retired Allergies Coded Allergies: Statins (Unverified Adverse Reaction, Unknown, MUSCLE PAIN, 08/18/16) Home Medications Reported Home Medications Medications Dose Route/Sig Max Daily Dose Days Date Category Dose Instructions Caltrate 600+D (Calcium Carbonate-Cholecalcife) 1 Tab Tab 2 Tabs PO DAILY 08/18/16 Reported Compazine (Prochlorperazine Maleate) 10 Mg Tab 10 Mg PO Q6H PRN 08/18/16 Reported NAUSEA/VOMITING Zofran (Ondansetron HCl) 8 Mg Tab 8 Mg PO TID PRN 08/18/16 Reported Vitamin D 400 Iu (Cholecalciferol) 400 Unit Cap 400 Inter.unit PO DAILY 06/11/16 Reported Multivitamin (Multivitamins) Tab 1 Tab PO DAILY 05/25/16 Reported Prednisone 10 Mg Tab 20 Mg PO QD 04/28/16 Reported Mestinon (Pyridostigmine [place]) 60 Mg Tab 180 Mg PO BID 04/28/16 Reported Levothyroxine Sodium 100 Mcg Tab 1 Tab PO DAILY 30 04/28/16 Reported Current Inpatient Medications Current Inpatient Medications Medications (Trade) Dose Ordered Sig/Nga Route Start Time Stop Time Status Last Admin Dose Admin Acetaminophen (Tylenol Tab) 650 mg Q4H PRN PO 08/18/16 20:15 09/17/16 20:14 Levothyroxine Sodium (Synthroid Tab) 100 mcg DAILYBB PO 08/19/16 06:30 09/18/16 06:59 08/22/16 07:32 100 MCG Multivitamins (Multivitamin Tab) 1 tab DAILY PO 08/19/16 08:00 09/18/16 08:59 08/22/16 08:17 1 TAB Prednisone (PredniSONE TAB) 20 mg DAILY PO 08/19/16 08:00 09/18/16 07:59 08/22/16 08:17 20 MG Pyridostigmine [place] 180 mg 180 mg BID PO 08/18/16 20:00 09/17/16 19:59 08/22/16 08:17 180 MG Metronidazole/Prmx (Flagyl / Nss/ Premixed Nss) 100 ml @ 100 mls/hr Q8H IV 08/19/16 08:00 08/29/16 07:59 08/22/16 15:43 100 MLS/HR Ondansetron HCl (Zofran Inj) 4 mg Q6H PRN IV 08/18/16 20:15 09/17/16 20:14 Tramadol HCl (Ultram Tab) 25 mg Q6H PRN PO 08/18/16 20:15 09/17/16 20:14 Ketorolac Tromethamine (Toradol Inj) 15 mg Q6H PRN IV. 08/18/16 20:15 08/23/16 20:14 Hydromorphone HCl (Dilaudid Inj) 0.5 mg Q3H PRN IV 08/18/16 20:15 09/01/16 20:14 Lorazepam 0.5 mg 0.5 mg Q4H PRN IV 08/18/16 20:15 09/17/16 20:14 Promethazine HCl 12.5 mg/Sodium Chloride 50.5 ml @ 204 mls/hr Q6H PRN IV 08/18/16 20:15 09/17/16 20:14 Lorazepam/Syringe (Ativan Inj/ Syringe) 1 ml @ 1 mls/min Q4H PRN IV 08/18/16 22:00 09/17/16 21:59 Review of Systems Constitutional: No chills, No fever, No sweats Eyes: No worsening of vision ENT: No hearing loss Respiratory: No cough, No shortness of breath Cardiovascular: No chest pain Abdomen: + diarrhea (with incontinence), No nausea, No pain, No vomiting Musculoskeletal: No joint pain Genitourinary - Female: No dysuria Integumentary: No itch, No rash Physical Exam Date Time Temp Pulse Resp B/P Pulse Ox O2 Delivery O2 Flow Rate FiO2 08/22/16 15:10 36.6 82 16 166/55 97 Room Air 08/22/16 12:25 36.3 73 16 137/71 96 Room Air 08/22/16 10:01 Room Air 08/22/16 08:10 36.4 68 16 152/68 95 Room Air 08/22/16 03:52 36.4 65 18 142/64 97 Room Air 08/22/16 00:45 36.6 71 18 125/68 95 Room Air 08/22/16 00:00 Room Air 08/21/16 19:45 36.4 76 18 133/62 97 Room Air General Appearance: WD/WN, no apparent distress Head: normocephalic, atraumatic Eyes: normal inspection, sclerae normal ENT: hearing grossly normal Neck: supple, trachea midline Respiratory/Chest: chest non-tender, lungs clear, normal breath sounds, no respiratory distress, no accessory muscle use Cardiovascular: regular rate, rhythm Abdomen/GI: non tender, soft, + abnormal bowel sounds (hyperactive) Extremities/Musculoskelatal: normal inspection, no pedal edema Neurologic/Psych: alert, normal mood/affect, oriented x 3 Skin: normal color, warm/dry, no rash Laboratory Results CT SCAN OF THE ABDOMEN AND PELVIS WITHOUT CONTRAST CLINICAL HISTORY: Left abd pain, possible UTI, Left Nephrostomy, Bladder CA COMPARISON STUDY: 04/28/2016 TECHNIQUE: CT scan of the abdomen and pelvis was performed from the lung bases to the proximal femurs. Images are reviewed in the axial, sagittal, and coronal planes. IV contrast was not administered for this examination. CT DOSE: 271.08 mGy.cm FINDINGS: Lower chest: There is underlying emphysema. There is a stable 4 mm right lower lobe pulmonary nodule. Liver: There is a stable 11 mm hypodensity within the hepatic dome. There is trace perihepatic fluid. There is a stable 19 mm hypodensity within the right hepatic lobe. These lesions approach water attenuation and likely represent cysts. Gallbladder: Cholelithiasis Spleen: Normal in size and attenuation. Pancreas: Unremarkable. Adrenal glands: Unremarkable. Kidneys: There is a 15 mm upper pole left renal cyst. There is residual a left-sided nephrostomy tube. There is no significant hydronephrosis. No ureteral or bladder calculi are visualized. Bowel: There are no transition zones indicate bowel obstruction. There is scott diverticulosis. There is diffuse colonic wall thickening with areas of infiltration involving the pericolonic fat. The findings are suggestive of a pancolitis. Peritoneum: There is trace free fluid. No free air is visualized. Vasculature: The abdominal aorta is normal in course and caliber. Adenopathy: None. Pelvic viscera: The bladder, and pelvic viscera are unremarkable. Skeletal structures: No destructive osseous lesions are seen. IMPRESSION: 1. No evidence of bowel obstruction. No evidence of free air 2. Scott diverticulosis 3. Diffuse colonic wall thickening with infiltration of the pericolonic fat. The findings are indicative of a pancolitis 4. Cholelithiasis 5. Trace ascites 6. Stable 4 mm right lower lobe pulmonary nodule Item Value Date Time C.difficile Toxin B Gene (PCR) - Final Complete 08/19/16 0519 Stool Positive for C. difficile toxin B gene Urine Culture - Final Complete 08/18/16 1555 Urine,Catheterized Corynbact.sp Not Urealyticum Urine Culture - Final Complete 08/18/16 1550 Urine,Catheterized Alpha Strep. Not Enterococcus Last 24 Hours Test 08/21/16 16:29 08/21/16 20:16 08/22/16 06:45 08/22/16 08:00 Bedside Glucose 157 mg/dl 241 mg/dl 90 mg/dl White Blood Count 15.84 K/uL Red Blood Count 3.57 M/uL Hemoglobin 10.9 g/dL Hematocrit 32.2 % Mean Corpuscular Volume 90.2 fL Mean Corpuscular Hemoglobin 30.5 pg Mean Corpuscular Hemoglobin Concent 33.9 g/dl RDW Standard Deviation 63.7 fL RDW Coefficient of Variation 19.3 % Platelet Count 69 K/uL Mean Platelet Volume 10.6 fL Sodium Level 141 mmol/L Potassium Level 3.4 mmol/L Chloride Level 109 mmol/L Carbon Dioxide Level 22 mmol/L Anion Gap 10.0 mmol/L Blood Urea Nitrogen 14 mg/dl Creatinine 0.73 mg/dl Est Creatinine Clear Calc Drug Dose 61.2 ml/min Estimated GFR () 91.4 Estimated GFR (Non- 78.9 BUN/Creatinine Ratio 18.6 Random Glucose 85 mg/dl Calcium Level 8.0 mg/dl Phosphorus Level 1.5 mg/dl Magnesium Level 2.2 mg/dl Test 08/22/16 11:41 Bedside Glucose 133 mg/dl Assessment & Plan Patient with C. Diff colitis in the setting of chemotherapy treatment for Bladder cancer and recent antibiotic use for UTI. This is her 3rd episode of C. Diff. She is currently on IV Flagyl. Will change to PO Vancomycin 125 mg QID. She will require a tapering course of Vancomycin. Will start with 2 weeks of Vancomycin 125 mg QID, then will hopefully taper to 125 mg BID x 2 weeks and finally 125 mg once daily x 2 weeks. However, she will need ID follow up and if she continues to have severe symptoms after the first 2 weeks of therapy, likely will place her on an extended tapering course. We will follow. PROVIDER ADDENDUM: Patient examined and reviewed with Ms. Talbot. Agree with above assessment. Patient may require very prolonged vancomycin therapy given multiple recurrences of C diff.
[2016-08-22] MEDS: RASPBERRY SYRUP 5 ML UDP PO SCH ×2 (17:09→19:52)
[2016-08-22] MEDS: VANCOMYCIN HCL 125 MG/2.5ML SOLN PO SCH ×2 (17:09→19:52)
--- NOTE | 2016-08-22 17:26 | Progress Note ---
Medicine Progress Note Date & Time of Visit: Aug 22, 2016 at 17:20. Subjective Pt was seen and examined Lying in bed comfortable with no distress Pt said that she continue to have diarrhea and seems to go to the bathroom every 3 hrs Pt said that she tolerated the full liquid diet denies any abdominal pain, palpitation, fever, dizziness and SOB Objective Last 8 Hrs Date Time Temp Pulse Resp B/P Pulse Ox O2 Delivery O2 Flow Rate FiO2 08/22/16 16:00 97 Room Air 08/22/16 15:10 36.6 82 16 166/55 97 Room Air 08/22/16 12:25 36.3 73 16 137/71 96 Room Air 08/22/16 10:01 Room Air Physical Exam: General- No acute distress Head- atraumatic Eyes- PERRL, EOMI ENT- oropharynx clear Neck- supple, no JVD Lungs- clear to auscultation and percussion Heart- regular rhythm; no murmur Abdomen- normal bowel sound, nontender Extremities- no calf tenderness Neuro- alert, oriented x 3; PERRL, EOMI Skin- warm & dry Laboratory Results: Last 24 Hours Test 08/21/16 20:16 08/22/16 06:45 08/22/16 08:00 08/22/16 11:41 Bedside Glucose 241 mg/dl 90 mg/dl 133 mg/dl White Blood Count 15.84 K/uL Red Blood Count 3.57 M/uL Hemoglobin 10.9 g/dL Hematocrit 32.2 % Mean Corpuscular Volume 90.2 fL Mean Corpuscular Hemoglobin 30.5 pg Mean Corpuscular Hemoglobin Concent 33.9 g/dl RDW Standard Deviation 63.7 fL RDW Coefficient of Variation 19.3 % Platelet Count 69 K/uL Mean Platelet Volume 10.6 fL Sodium Level 141 mmol/L Potassium Level 3.4 mmol/L Chloride Level 109 mmol/L Carbon Dioxide Level 22 mmol/L Anion Gap 10.0 mmol/L Blood Urea Nitrogen 14 mg/dl Creatinine 0.73 mg/dl Est Creatinine Clear Calc Drug Dose 61.2 ml/min Estimated GFR () 91.4 Estimated GFR (Non- 78.9 BUN/Creatinine Ratio 18.6 Random Glucose 85 mg/dl Calcium Level 8.0 mg/dl Phosphorus Level 1.5 mg/dl Magnesium Level 2.2 mg/dl Test 08/22/16 16:33 Bedside Glucose 183 mg/dl Assessment & Plan C Diff Colitis -recurrentX3 Diarrhea associated with Abdominal pain that is improved Has been on IV Flagyl Recent C Diff infection ~1month ago Not septic and or Toxic Flagyl D/C Was starting on taper course of PO vanco 125mg by ID Will advanced diet to regular as tolerated Generalized weakness -immunocompromised patient, -hx bladder cancer status post surgery, radiation, ongoing chemotherapy -hx lung CA sp chemo tx -hx myasthenia gravis on chronic steroid tx -complicated by C Diff colitis -Consult PT/OT Electrolytes imbalance Replaced Continue monitor electrolytes UTI Ruled out -mixed emily and asymptomatic D/C Cefepime Chronic obstructive pulmonary disease, past tobacco abuse -pulmo status at baseline Continue current medication Stable Chronic thrombocytopenia 2 to chemo tx. plt 69 No active bleeding Monitor cbc DVT prophylaxis, SCDs due to thrombocytopenia. . Full code. DISPOSITION PT/OT evaluation Current Inpatient Medications: Current Inpatient Medications Medications (Trade) Dose Ordered Sig/Nga Route Start Time Stop Time Status Last Admin Dose Admin Acetaminophen (Tylenol Tab) 650 mg Q4H PRN PO 08/18/16 20:15 09/17/16 20:14 Levothyroxine Sodium (Synthroid Tab) 100 mcg DAILYBB PO 08/19/16 06:30 09/18/16 06:59 08/22/16 07:32 100 MCG Multivitamins (Multivitamin Tab) 1 tab DAILY PO 08/19/16 08:00 09/18/16 08:59 08/22/16 08:17 1 TAB Prednisone (PredniSONE TAB) 20 mg DAILY PO 08/19/16 08:00 09/18/16 07:59 08/22/16 08:17 20 MG Pyridostigmine [place] (Mestinon Tab) 180 mg BID PO 08/18/16 20:00 09/17/16 19:59 08/22/16 08:17 180 MG Ondansetron HCl (Zofran Inj) 4 mg Q6H PRN IV 08/18/16 20:15 09/17/16 20:14 Tramadol HCl (Ultram Tab) 25 mg Q6H PRN PO 08/18/16 20:15 09/17/16 20:14 Ketorolac Tromethamine (Toradol Inj) 15 mg Q6H PRN IV. 08/18/16 20:15 08/23/16 20:14 Hydromorphone HCl (Dilaudid Inj) 0.5 mg Q3H PRN IV 08/18/16 20:15 09/01/16 20:14 Lorazepam 0.5 mg 0.5 mg Q4H PRN IV 08/18/16 20:15 09/17/16 20:14 Promethazine HCl 12.5 mg/Sodium Chloride 50.5 ml @ 204 mls/hr Q6H PRN IV 08/18/16 20:15 09/17/16 20:14 Lorazepam/Syringe (Ativan Inj/ Syringe) 1 ml @ 1 mls/min Q4H PRN IV 08/18/16 22:00 09/17/16 21:59 Vancomycin HCl (Vancomycin Oral Soln) 125 mg QID PO 08/22/16 17:00 09/05/16 16:59 08/22/16 17:09 125 MG Raspberry (Raspberry Syrup 5ml Cup) 5 ml QID PO 08/22/16 17:00 09/01/16 16:59 08/22/16 17:09 5 ML
[2016-08-23 00:23] VITALS: BP 128/57; PULSE 68; TEMP 36.7; O2SAT 97
[2016-08-23 04:02] VITALS: BP_SYST 125; BP_DIAS 64; BP_DIAS 74; PULSE 58; TEMP 36.6; O2SAT 94
[2016-08-23] MEDS: LEVOTHYROXINE 100 MCG TAB PO SCH (05:59)
[2016-08-23] MEDS: MULTIVITAMIN TAB PO SCH (08:10)
[2016-08-23] MEDS: PYRIDOSTIGMINE BROMIDE 60 MG TAB PO SCH ×2 (08:10→20:31)
[2016-08-23] MEDS: RASPBERRY SYRUP 5 ML UDP PO SCH ×4 (08:10→20:31)
[2016-08-23] MEDS: VANCOMYCIN HCL 125 MG/2.5ML SOLN PO SCH (08:14)
[2016-08-23 08:24] VITALS: BP 148/73; PULSE 80; TEMP 37.1; O2SAT 95
[2016-08-23 08:58] LABS: HEMATOCRIT 32.2 % (37-47); MEAN CELL VOLUME 89.7 fL (80-100); MEAN CORPUSCULAR HEMOGLOBIN 31.5 pg (25-34); MEAN CORPUSCULAR HGB CONC 35.1 g/dl (32-36); RED BLOOD COUNT 3.59 M/uL (4.2-5.4); WHITE BLOOD COUNT 12.94 K/uL (4.8-10.8)
[2016-08-23 08:59] LABS: MEAN PLATELET VOLUME 10.3 fL (7.4-10.4); PLATELET COUNT 74 K/uL (130-400)
[2016-08-23 09:27] LABS: BUN/CREATININE RATIO 21.7 (10-20); CALCIUM 7.9 mg/dl (8.5-10.1); CREATININE 0.75 mg/dl (0.60-1.20); MAGNESIUM 1.9 mg/dl (1.8-2.4); POTASSIUM 3.4 mmol/L (3.5-5.1)
[2016-08-23 09:43] LABS: PHOSPHORUS 1.4 mg/dl (2.5-4.9)
--- NOTE | 2016-08-23 10:28 | Infectious Disease Progress Nt ---
Progress Note Date of Service Aug 23, 2016. Subjective Pt evaluation today including: conversation w/ patient, physical exam, chart review, lab review, review of studies, review of inpatient medication list Patient continues to have severe diarrhea even with small movements this morning. Phosphorus is still very low this morning at 1.4. Chloride is 108 and Potassium is 3.4. She is tolerating PO Vancomycin 125 mg Otherwise, she has no complaints but is incontinent of stool and continues to have frequency of stools as well. All Other Systems: Reviewed and Negative Medications Current Inpatient Medications Medications (Trade) Dose Ordered Sig/Nga Route Start Time Stop Time Status Last Admin Dose Admin Acetaminophen (Tylenol Tab) 650 mg Q4H PRN PO 08/18/16 20:15 09/17/16 20:14 Levothyroxine Sodium (Synthroid Tab) 100 mcg DAILYBB PO 08/19/16 06:30 09/18/16 06:59 08/23/16 05:59 100 MCG Multivitamins (Multivitamin Tab) 1 tab DAILY PO 08/19/16 08:00 09/18/16 08:59 08/23/16 08:10 1 TAB Prednisone (PredniSONE TAB) 20 mg DAILY PO 08/19/16 08:00 09/18/16 07:59 08/23/16 08:09 20 MG Pyridostigmine [place] (Mestinon Tab) 180 mg BID PO 08/18/16 20:00 09/17/16 19:59 08/23/16 08:10 180 MG Ondansetron HCl (Zofran Inj) 4 mg Q6H PRN IV 08/18/16 20:15 09/17/16 20:14 Tramadol HCl (Ultram Tab) 25 mg Q6H PRN PO 08/18/16 20:15 09/17/16 20:14 Ketorolac Tromethamine (Toradol Inj) 15 mg Q6H PRN IV. 08/18/16 20:15 08/23/16 20:14 Hydromorphone HCl (Dilaudid Inj) 0.5 mg Q3H PRN IV 08/18/16 20:15 09/01/16 20:14 Lorazepam 0.5 mg 0.5 mg Q4H PRN IV 08/18/16 20:15 09/17/16 20:14 Promethazine HCl 12.5 mg/Sodium Chloride 50.5 ml @ 204 mls/hr Q6H PRN IV 08/18/16 20:15 09/17/16 20:14 Lorazepam/Syringe (Ativan Inj/ Syringe) 1 ml @ 1 mls/min Q4H PRN IV 08/18/16 22:00 09/17/16 21:59 Vancomycin HCl (Vancomycin Oral Soln) 125 mg QID PO 08/22/16 17:00 09/05/16 16:59 08/23/16 08:14 125 MG Raspberry (Raspberry Syrup 5ml Cup) 5 ml QID PO 08/22/16 17:00 09/01/16 16:59 08/23/16 08:10 5 ML Objective Vital Signs Date Time Temp Pulse Resp B/P Pulse Ox O2 Delivery O2 Flow Rate FiO2 08/23/16 08:24 37.1 80 16 148/73 95 Room Air 08/23/16 04:02 36.6 58 18 125/64 94 Nasal Cannula 4.0 08/23/16 00:23 36.7 68 18 128/57 97 Room Air 08/23/16 00:00 Room Air 08/22/16 20:32 36.7 68 20 137/69 99 Room Air 08/22/16 16:00 97 Room Air 08/22/16 15:10 36.6 82 16 166/55 97 Room Air 08/22/16 12:25 36.3 73 16 137/71 96 Room Air Physical Exam General Appearance: WD/WN, + mild distress (unable to move much without having stool incontinence) Eyes: normal inspection, sclerae normal ENT: hearing grossly normal Neck: supple, trachea midline Respiratory/Chest: no respiratory distress, no accessory muscle use Cardiovascular: regular rate, rhythm Neurologic/Psychiatric: alert, normal mood/affect Skin: normal color Laboratory Results Last 24 Hours Test 08/22/16 11:41 08/22/16 16:33 08/22/16 21:01 08/23/16 07:44 Bedside Glucose 133 mg/dl 183 mg/dl 163 mg/dl 85 mg/dl Test 08/23/16 08:30 White Blood Count 12.94 K/uL Red Blood Count 3.59 M/uL Hemoglobin 11.3 g/dL Hematocrit 32.2 % Mean Corpuscular Volume 89.7 fL Mean Corpuscular Hemoglobin 31.5 pg Mean Corpuscular Hemoglobin Concent 35.1 g/dl RDW Standard Deviation 63.6 fL RDW Coefficient of Variation 19.5 % Platelet Count 74 K/uL Mean Platelet Volume 10.3 fL Sodium Level 140 mmol/L Potassium Level 3.4 mmol/L Chloride Level 108 mmol/L Carbon Dioxide Level 25 mmol/L Anion Gap 7.0 mmol/L Blood Urea Nitrogen 16 mg/dl Creatinine 0.75 mg/dl Est Creatinine Clear Calc Drug Dose 56.3 ml/min Estimated GFR () 88.5 Estimated GFR (Non- 76.3 BUN/Creatinine Ratio 21.7 Random Glucose 87 mg/dl Calcium Level 7.9 mg/dl Phosphorus Level 1.4 mg/dl Magnesium Level 1.9 mg/dl Assessment and Plan Patient with C. Diff colitis in the setting of chemotherapy treatment for Bladder cancer and recent antibiotic use for UTI. This is her 3rd episode of C. Diff. She previously was on IV Flagyl, and was changed to PO Vancomycin 125 mg QID yesterday. Will increase to PO Vancomycin 250 QID for now until even slight improvement is seen. Then likely will transition to 125 mg QID prior to discharge again. Will hopefully be able to transition to taper at discharge, but we will continue to follow and determine length of taper. We will follow. PROVIDER ADDENDUM: Patient reviewed with Ms. Talbot. Agree with above assessment.
[2016-08-23 12:02] VITALS: BP 124/65; PULSE 81; TEMP 36.3; O2SAT 95
[2016-08-23] MEDS ORDERED: POTASSIUM PHOS 3 MMOL/1 ML INFUSION IV ONE (12:15)
[2016-08-23] MEDS ORDERED: POTASSIUM PHOSPHATE INJ 21 MMOL in SODIUM CHLORIDE 0.9% 500ML 500 ML IV SCH (12:30)
[2016-08-23] MEDS: VANCOMYCIN HCL 250 MG/5 ML SOLN PO SCH ×3 (13:19→20:31)
[2016-08-23 16:14] VITALS: BP 128/71; PULSE 68; TEMP 36.4; O2SAT 95
--- NOTE | 2016-08-23 19:11 | Progress Note ---
Medicine Progress Note Date & Time of Visit: Aug 23, 2016 at 19:06. Subjective Pt was seen and examined Pt said that she feels better today Her diarrhea improved compare to yesterday denies any chest pain, palpitation, dizziness and SOB Objective Last 8 Hrs Date Time Temp Pulse Resp B/P Pulse Ox O2 Delivery O2 Flow Rate FiO2 08/23/16 16:14 36.4 68 18 128/71 95 Room Air 08/23/16 16:00 Room Air 08/23/16 12:02 36.3 81 16 124/65 95 Room Air Physical Exam: General- No acute distress Head- atraumatic Eyes- PERRL, EOMI ENT- oropharynx clear Neck- supple, no JVD Lungs- clear to auscultation and percussion Heart- regular rhythm; no murmur Abdomen- normal bowel sound, nontender Extremities- no calf tenderness Neuro- alert, oriented x 3; PERRL, EOMI Skin- warm & dry Laboratory Results: Last 24 Hours Test 08/22/16 21:01 08/23/16 07:44 08/23/16 08:30 08/23/16 11:49 Bedside Glucose 163 mg/dl 85 mg/dl 205 mg/dl White Blood Count 12.94 K/uL Red Blood Count 3.59 M/uL Hemoglobin 11.3 g/dL Hematocrit 32.2 % Mean Corpuscular Volume 89.7 fL Mean Corpuscular Hemoglobin 31.5 pg Mean Corpuscular Hemoglobin Concent 35.1 g/dl RDW Standard Deviation 63.6 fL RDW Coefficient of Variation 19.5 % Platelet Count 74 K/uL Mean Platelet Volume 10.3 fL Sodium Level 140 mmol/L Potassium Level 3.4 mmol/L Chloride Level 108 mmol/L Carbon Dioxide Level 25 mmol/L Anion Gap 7.0 mmol/L Blood Urea Nitrogen 16 mg/dl Creatinine 0.75 mg/dl Est Creatinine Clear Calc Drug Dose 56.3 ml/min Estimated GFR () 88.5 Estimated GFR (Non- 76.3 BUN/Creatinine Ratio 21.7 Random Glucose 87 mg/dl Calcium Level 7.9 mg/dl Phosphorus Level 1.4 mg/dl Magnesium Level 1.9 mg/dl Test 08/23/16 16:28 Bedside Glucose 165 mg/dl Assessment & Plan C Diff Colitis -recurrentX3 Diarrhea associated with Abdominal pain that is improved Has been on IV Flagyl Recent C Diff infection ~1month ago Not septic and or Toxic Flagyl D/C Was starting on taper course of PO vanco 125mg by ID tolerated diet well Diarrhea improved Case discussed with ID that recommended to treat her for a longer period with a taper course of vanco. Generalized weakness -immunocompromised patient, -hx bladder cancer status post surgery, radiation, ongoing chemotherapy -hx lung CA sp chemo tx -hx myasthenia gravis on chronic steroid tx -complicated by C Diff colitis -Continue PT/OT Electrolytes imbalance Replaced phosphates Continue monitor electrolytes UTI Ruled out -mixed emily and asymptomatic D/C Cefepime Chronic obstructive pulmonary disease, past tobacco abuse -pulmo status at baseline Continue current medication Stable Chronic thrombocytopenia 2 to chemo tx. plt 74 No active bleeding Monitor cbc DVT prophylaxis, SCDs due to thrombocytopenia. . Full code. DISPOSITION PT/OT evaluation Current Inpatient Medications: Current Inpatient Medications Medications (Trade) Dose Ordered Sig/Nga Route Start Time Stop Time Status Last Admin Dose Admin Acetaminophen (Tylenol Tab) 650 mg Q4H PRN PO 08/18/16 20:15 09/17/16 20:14 Levothyroxine Sodium (Synthroid Tab) 100 mcg DAILYBB PO 08/19/16 06:30 09/18/16 06:59 08/23/16 05:59 100 MCG Multivitamins (Multivitamin Tab) 1 tab DAILY PO 08/19/16 08:00 09/18/16 08:59 08/23/16 08:10 1 TAB Prednisone (PredniSONE TAB) 20 mg DAILY PO 08/19/16 08:00 09/18/16 07:59 08/23/16 08:09 20 MG Pyridostigmine [place] (Mestinon Tab) 180 mg BID PO 08/18/16 20:00 09/17/16 19:59 08/23/16 08:10 180 MG Ondansetron HCl (Zofran Inj) 4 mg Q6H PRN IV 08/18/16 20:15 09/17/16 20:14 Tramadol HCl (Ultram Tab) 25 mg Q6H PRN PO 08/18/16 20:15 09/17/16 20:14 Ketorolac Tromethamine (Toradol Inj) 15 mg Q6H PRN IV. 08/18/16 20:15 08/23/16 20:14 Hydromorphone HCl (Dilaudid Inj) 0.5 mg Q3H PRN IV 08/18/16 20:15 09/01/16 20:14 Lorazepam 0.5 mg 0.5 mg Q4H PRN IV 08/18/16 20:15 09/17/16 20:14 Promethazine HCl 12.5 mg/Sodium Chloride 50.5 ml @ 204 mls/hr Q6H PRN IV 08/18/16 20:15 09/17/16 20:14 Lorazepam/Syringe (Ativan Inj/ Syringe) 1 ml @ 1 mls/min Q4H PRN IV 08/18/16 22:00 09/17/16 21:59 Raspberry (Raspberry Syrup 5ml Cup) 5 ml QID PO 08/22/16 17:00 09/01/16 16:59 08/23/16 16:22 5 ML Vancomycin HCl (Vancomycin Oral Soln) 250 mg QID PO 08/23/16 12:00 09/06/16 11:59 08/23/16 16:22 250 MG
[2016-08-23 20:29] VITALS: BP 162/74; PULSE 75; TEMP 36.4; O2SAT 95
[2016-08-24] VITALS (8 sets, daily range): BP systolic 133–183; BP diastolic 67–77; PULSE 68–76; TEMP 36.3–36.7; O2SAT 94–97
[2016-08-24 06:38] LABS: HEMATOCRIT 32.3 % (37-47); MEAN CELL VOLUME 90.2 fL (80-100); MEAN CORPUSCULAR HEMOGLOBIN 30.4 pg (25-34); MEAN CORPUSCULAR HGB CONC 33.7 g/dl (32-36); RED BLOOD COUNT 3.58 M/uL (4.2-5.4); WHITE BLOOD COUNT 11.69 K/uL (4.8-10.8)
[2016-08-24 06:44] LABS: PLATELET COUNT 75 K/uL (130-400)
[2016-08-24] MEDS: LEVOTHYROXINE 100 MCG TAB PO SCH (06:55)
[2016-08-24 07:00] LABS: BUN/CREATININE RATIO 27.6 (10-20); CALCIUM 8.1 mg/dl (8.5-10.1); CREATININE 0.66 mg/dl (0.60-1.20); MAGNESIUM 1.8 mg/dl (1.8-2.4); POTASSIUM 3.6 mmol/L (3.5-5.1)
[2016-08-24 07:10] LABS: PHOSPHORUS 2.3 mg/dl (2.5-4.9)
[2016-08-24] MEDS: PYRIDOSTIGMINE BROMIDE 60 MG TAB PO SCH ×2 (08:16→21:40)
[2016-08-24] MEDS: VANCOMYCIN HCL 250 MG/5 ML SOLN PO SCH ×4 (08:16→21:41)
[2016-08-24] MEDS: MULTIVITAMIN TAB PO SCH (08:16)
[2016-08-24] MEDS: RASPBERRY SYRUP 5 ML UDP PO SCH ×4 (08:16→21:40)
--- NOTE | 2016-08-24 10:19 | Infectious Disease Progress Nt ---
Progress Note Date of Service Aug 24, 2016. Subjective Pt evaluation today including: conversation w/ patient, physical exam, chart review, lab review, review of studies, review of inpatient medication list WBC count this morning is slightly 11.69. Phosphorus was improved today at 2.3. Her creatinine is 0.66. She continues on PO Vancomycin 250 mg QID for now. She continues to have episodes of diarrhea approximately every 2 hours. She feels it is very slightly improved but she continues to be very fatigued. All Other Systems: Reviewed and Negative Medications Current Inpatient Medications Medications (Trade) Dose Ordered Sig/Nga Route Start Time Stop Time Status Last Admin Dose Admin Acetaminophen (Tylenol Tab) 650 mg Q4H PRN PO 08/18/16 20:15 09/17/16 20:14 Levothyroxine Sodium (Synthroid Tab) 100 mcg DAILYBB PO 08/19/16 06:30 09/18/16 06:59 08/24/16 06:55 100 MCG Multivitamins (Multivitamin Tab) 1 tab DAILY PO 08/19/16 08:00 09/18/16 08:59 08/24/16 08:16 1 TAB Prednisone (PredniSONE TAB) 20 mg DAILY PO 08/19/16 08:00 09/18/16 07:59 08/24/16 08:16 20 MG Pyridostigmine [place] (Mestinon Tab) 180 mg BID PO 08/18/16 20:00 09/17/16 19:59 08/24/16 08:16 180 MG Ondansetron HCl (Zofran Inj) 4 mg Q6H PRN IV 08/18/16 20:15 09/17/16 20:14 Tramadol HCl (Ultram Tab) 25 mg Q6H PRN PO 08/18/16 20:15 09/17/16 20:14 Hydromorphone HCl (Dilaudid Inj) 0.5 mg Q3H PRN IV 08/18/16 20:15 09/01/16 20:14 Lorazepam 0.5 mg 0.5 mg Q4H PRN IV 08/18/16 20:15 09/17/16 20:14 Promethazine HCl 12.5 mg/Sodium Chloride 50.5 ml @ 204 mls/hr Q6H PRN IV 08/18/16 20:15 09/17/16 20:14 Lorazepam/Syringe (Ativan Inj/ Syringe) 1 ml @ 1 mls/min Q4H PRN IV 08/18/16 22:00 09/17/16 21:59 Raspberry (Raspberry Syrup 5ml Cup) 5 ml QID PO 08/22/16 17:00 09/01/16 16:59 08/24/16 08:16 5 ML Vancomycin HCl (Vancomycin Oral Soln) 250 mg QID PO 08/23/16 12:00 09/06/16 11:59 08/24/16 08:16 250 MG Objective Vital Signs Date Time Temp Pulse Resp B/P Pulse Ox O2 Delivery O2 Flow Rate FiO2 08/24/16 08:20 36.6 75 16 162/72 97 Room Air 08/24/16 08:00 Room Air 08/24/16 03:38 36.6 74 18 133/74 95 Room Air 08/24/16 00:24 36.7 76 18 162/67 97 Room Air 08/24/16 00:00 97 Room Air 08/23/16 20:29 36.4 75 18 162/74 95 Room Air 08/23/16 16:14 36.4 68 18 128/71 95 Room Air 08/23/16 16:00 Room Air 08/23/16 12:02 36.3 81 16 124/65 95 Room Air Physical Exam General Appearance: WD/WN, no apparent distress, + pertinent finding (fatigued) Eyes: normal inspection, sclerae normal ENT: hearing grossly normal Neck: supple, trachea midline Respiratory/Chest: chest non-tender, no respiratory distress, no accessory muscle use Cardiovascular: regular rate, rhythm Abdomen: non tender, soft, + abnormal bowel sounds (hyperactive) Neurologic/Psychiatric: alert, normal mood/affect Skin: normal color, warm/dry, no rash Laboratory Results Last 24 Hours Test 08/23/16 11:49 08/23/16 16:28 08/24/16 06:10 Bedside Glucose 205 mg/dl 165 mg/dl White Blood Count 11.69 K/uL Red Blood Count 3.58 M/uL Hemoglobin 10.9 g/dL Hematocrit 32.3 % Mean Corpuscular Volume 90.2 fL Mean Corpuscular Hemoglobin 30.4 pg Mean Corpuscular Hemoglobin Concent 33.7 g/dl RDW Standard Deviation 63.8 fL RDW Coefficient of Variation 19.3 % Platelet Count 75 K/uL Mean Platelet Volume 10.0 fL Sodium Level 142 mmol/L Potassium Level 3.6 mmol/L Chloride Level 109 mmol/L Carbon Dioxide Level 24 mmol/L Anion Gap 9.0 mmol/L Blood Urea Nitrogen 18 mg/dl Creatinine 0.66 mg/dl Est Creatinine Clear Calc Drug Dose 64.0 ml/min Estimated GFR () 98.1 Estimated GFR (Non- 84.6 BUN/Creatinine Ratio 27.6 Random Glucose 77 mg/dl Calcium Level 8.1 mg/dl Phosphorus Level 2.3 mg/dl Magnesium Level 1.8 mg/dl Assessment and Plan Patient with C. Diff colitis in the setting of chemotherapy treatment for Bladder cancer and recent antibiotic use for UTI. This is her 3rd episode of C. Diff. She was increased to PO Vancomycin 250 QID for now until even slight improvement is seen. Continue higher dose for now. If major improvement is seen , can decrease to 125 mg QID prior to discharge but likely will need at least 1 month of this dose with a tapering regimen as an outpatient due to severity of disease. PROVIDER ADDENDUM: Patient reviewed with Ms. Talbot. Agree with above assessment.
[2016-08-24] MEDS ORDERED: POTASSIUM CHLORIDE 20 MEQ TABCR PO ONE (20:15)
--- NOTE | 2016-08-24 20:16 | Progress Note ---
Medicine Progress Note Date & Time of Visit: Aug 24, 2016 at 20:09. Subjective Pt was seen and examined Lying in bed comfortable watching TV Pt said that she feels much better she is having less diarrhea and the stool is getting loose instead of watery denies any chest pain, palpitation, dizziness and sob Objective Last 8 Hrs Date Time Temp Pulse Resp B/P Pulse Ox O2 Delivery O2 Flow Rate FiO2 08/24/16 19:34 36.6 74 18 155/70 95 Room Air 08/24/16 16:00 Room Air 08/24/16 15:16 36.3 74 18 148/77 96 Room Air 08/24/16 12:22 36.3 68 18 138/69 95 Physical Exam: General- No acute distress Head- atraumatic Eyes- PERRL, EOMI ENT- oropharynx clear Neck- supple, no JVD Lungs- clear to auscultation and percussion Heart- regular rhythm; no murmur Abdomen- normal bowel sound, nontender Extremities- no calf tenderness Neuro- alert, oriented x 3; PERRL, EOMI Skin- warm & dry Laboratory Results: Last 24 Hours Test 08/24/16 06:10 08/24/16 07:51 08/24/16 11:47 08/24/16 16:52 White Blood Count 11.69 K/uL Red Blood Count 3.58 M/uL Hemoglobin 10.9 g/dL Hematocrit 32.3 % Mean Corpuscular Volume 90.2 fL Mean Corpuscular Hemoglobin 30.4 pg Mean Corpuscular Hemoglobin Concent 33.7 g/dl RDW Standard Deviation 63.8 fL RDW Coefficient of Variation 19.3 % Platelet Count 75 K/uL Mean Platelet Volume 10.0 fL Sodium Level 142 mmol/L Potassium Level 3.6 mmol/L Chloride Level 109 mmol/L Carbon Dioxide Level 24 mmol/L Anion Gap 9.0 mmol/L Blood Urea Nitrogen 18 mg/dl Creatinine 0.66 mg/dl Est Creatinine Clear Calc Drug Dose 64.0 ml/min Estimated GFR () 98.1 Estimated GFR (Non- 84.6 BUN/Creatinine Ratio 27.6 Random Glucose 77 mg/dl Calcium Level 8.1 mg/dl Phosphorus Level 2.3 mg/dl Magnesium Level 1.8 mg/dl Bedside Glucose 92 mg/dl 137 mg/dl 186 mg/dl Assessment & Plan C Diff Colitis -recurrentX3 Diarrhea associated with Abdominal pain that is improved Has been on IV Flagyl Recent C Diff infection ~1month ago Not septic and or Toxic Flagyl D/C Was starting on taper course of PO vanco 250mg by ID tolerated diet well Diarrhea improved Case discussed with ID that recommended to treat her for a longer period with a taper course of vanco. 08/24 On vanco 250 mg qid by ID Will transition to 125 mg QId upon discharge and pt will need a longer course of abx Diarrhea is less frequent and stool getting loose will consider to discharge in am Generalized weakness -immunocompromised patient, -hx bladder cancer status post surgery, radiation, ongoing chemotherapy -hx lung CA sp chemo tx -hx myasthenia gravis on chronic steroid tx -complicated by C Diff colitis -Continue PT/OT - Pt has been refused PT - advised pt to participate in Physical therapy Electrolytes imbalance Replaced Continue monitor electrolytes UTI Ruled out -mixed emily and asymptomatic D/C Cefepime Chronic obstructive pulmonary disease, past tobacco abuse -pulmo status at baseline Continue current medication Stable Chronic thrombocytopenia 2 to chemo tx. plt 75 No active bleeding Monitor cbc DVT prophylaxis, SCDs due to thrombocytopenia. . Full code. DISPOSITION PT/OT evaluation Current Inpatient Medications: Current Inpatient Medications Medications (Trade) Dose Ordered Sig/Nga Route Start Time Stop Time Status Last Admin Dose Admin Acetaminophen (Tylenol Tab) 650 mg Q4H PRN PO 08/18/16 20:15 09/17/16 20:14 Levothyroxine Sodium (Synthroid Tab) 100 mcg DAILYBB PO 08/19/16 06:30 09/18/16 06:59 08/24/16 06:55 100 MCG Multivitamins (Multivitamin Tab) 1 tab DAILY PO 08/19/16 08:00 09/18/16 08:59 08/24/16 08:16 1 TAB Prednisone (PredniSONE TAB) 20 mg DAILY PO 08/19/16 08:00 09/18/16 07:59 08/24/16 08:16 20 MG Pyridostigmine [place] (Mestinon Tab) 180 mg BID PO 08/18/16 20:00 09/17/16 19:59 08/24/16 08:16 180 MG Ondansetron HCl (Zofran Inj) 4 mg Q6H PRN IV 08/18/16 20:15 1/30/17 20:14 Tramadol HCl (Ultram Tab) 25 mg Q6H PRN PO 08/18/16 20:15 09/17/16 20:14 Hydromorphone HCl (Dilaudid Inj) 0.5 mg Q3H PRN IV 08/18/16 20:15 09/01/16 20:14 Lorazepam 0.5 mg 0.5 mg Q4H PRN IV 08/18/16 20:15 09/17/16 20:14 Promethazine HCl 12.5 mg/Sodium Chloride 50.5 ml @ 204 mls/hr Q6H PRN IV 08/18/16 20:15 09/17/16 20:14 Lorazepam/Syringe (Ativan Inj/ Syringe) 1 ml @ 1 mls/min Q4H PRN IV 08/18/16 22:00 09/17/16 21:59 Raspberry (Raspberry Syrup 5ml Cup) 5 ml QID PO 08/22/16 17:00 09/01/16 16:59 08/24/16 17:22 5 ML Vancomycin HCl (Vancomycin Oral Soln) 250 mg QID PO 08/23/16 12:00 09/06/16 11:59 08/24/16 17:21 250 MG
[2016-08-25] VITALS (8 sets, daily range): BP systolic 134–168; BP diastolic 71–85; PULSE 66–77; TEMP 36.3–36.7; O2SAT 94–98
[2016-08-25 06:05] LABS: MEAN CELL VOLUME 90.9 fL (80-100); MEAN CORPUSCULAR HEMOGLOBIN 31.4 pg (25-34); MEAN CORPUSCULAR HGB CONC 34.5 g/dl (32-36); MEAN PLATELET VOLUME 11.3 fL (7.4-10.4); PLATELET COUNT 107 K/uL (130-400); RED BLOOD COUNT 3.63 M/uL (4.2-5.4); WHITE BLOOD COUNT 11.58 K/uL (4.8-10.8)
[2016-08-25] MEDS: LEVOTHYROXINE 100 MCG TAB PO SCH (06:20)
[2016-08-25 06:38] LABS: BUN/CREATININE RATIO 27.1 (10-20); CALCIUM 8.1 mg/dl (8.5-10.1); CREATININE 0.66 mg/dl (0.60-1.20); MAGNESIUM 1.7 mg/dl (1.8-2.4); POTASSIUM 3.8 mmol/L (3.5-5.1)
[2016-08-25 06:39] LABS: PHOSPHORUS 2.5 mg/dl (2.5-4.9)
[2016-08-25] MEDS: MULTIVITAMIN TAB PO SCH (08:06)
[2016-08-25] MEDS: VANCOMYCIN HCL 250 MG/5 ML SOLN PO SCH ×4 (08:06→20:42)
[2016-08-25] MEDS: RASPBERRY SYRUP 5 ML UDP PO SCH ×4 (08:06→20:42)
[2016-08-25] MEDS: PYRIDOSTIGMINE BROMIDE 60 MG TAB PO SCH ×2 (08:07→20:42)
[2016-08-25] MEDS ORDERED: MAGNESIUM SULFATE 1GM / D5W 1 GM in PREMIXED IN D5W 100 ML IV ONE (14:15)
--- NOTE | 2016-08-25 17:46 | Progress Note ---
Medicine Progress Note Date & Time of Visit: Aug 25, 2016 at 17:39. Subjective Pt was seen and examined Lying in bed comfortable with no distress Pt said that she feels better today She said that she only has one episodes of loose stool today she participates in physical therapy today denies any chest pain, palpitation, dizziness and sob Objective Last 8 Hrs Date Time Temp Pulse Resp B/P Pulse Ox O2 Delivery O2 Flow Rate FiO2 08/25/16 15:37 36.3 68 18 134/72 96 Room Air Physical Exam: General- No acute distress Head- atraumatic Eyes- PERRL, EOMI ENT- oropharynx clear Neck- supple, no JVD Lungs- clear to auscultation and percussion Heart- regular rhythm; no murmur Abdomen- normal bowel sound, nontender Extremities- no calf tenderness Neuro- alert, oriented x 3; PERRL, EOMI Skin- warm & dry Laboratory Results: Last 24 Hours Test 08/24/16 20:37 08/25/16 05:49 08/25/16 07:38 08/25/16 11:40 Bedside Glucose 152 mg/dl 88 mg/dl 149 mg/dl White Blood Count 11.58 K/uL Red Blood Count 3.63 M/uL Hemoglobin 11.4 g/dL Hematocrit 33.0 % Mean Corpuscular Volume 90.9 fL Mean Corpuscular Hemoglobin 31.4 pg Mean Corpuscular Hemoglobin Concent 34.5 g/dl RDW Standard Deviation 64.3 fL RDW Coefficient of Variation 19.5 % Platelet Count 107 K/uL Mean Platelet Volume 11.3 fL Sodium Level 140 mmol/L Potassium Level 3.8 mmol/L Chloride Level 108 mmol/L Carbon Dioxide Level 24 mmol/L Anion Gap 8.0 mmol/L Blood Urea Nitrogen 18 mg/dl Creatinine 0.66 mg/dl Est Creatinine Clear Calc Drug Dose 65.3 ml/min Estimated GFR () 98.1 Estimated GFR (Non- 84.6 BUN/Creatinine Ratio 27.1 Random Glucose 82 mg/dl Calcium Level 8.1 mg/dl Phosphorus Level 2.5 mg/dl Magnesium Level 1.7 mg/dl Assessment & Plan C Diff Colitis -recurrentX3 Diarrhea associated with Abdominal pain that is improved Has been on IV Flagyl Recent C Diff infection ~1month ago Not septic and or Toxic Flagyl D/C Was starting on taper course of PO vanco 250mg by ID tolerated diet well Diarrhea improved Case discussed with ID that recommended to treat her for a longer period with a taper course of vanco. 08/25 On vanco 250 mg qid by ID Will transition to 125 mg QId upon discharge and pt will need a longer course of abx Diarrhea resolved. One had one episode of loose stool continue monitor waiting approval for placement Generalized weakness -immunocompromised patient, -hx bladder cancer status post surgery, radiation, ongoing chemotherapy -hx lung CA sp chemo tx -hx myasthenia gravis on chronic steroid tx -complicated by C Diff colitis -Continue PT/OT - Pt has been refused PT - She participated in Physical therapy today - waiting for approval for placement Electrolytes imbalance Replaced Mg Continue monitor electrolytes UTI Ruled out -mixed emily and asymptomatic D/C Cefepime Chronic obstructive pulmonary disease, past tobacco abuse -pulmo status at baseline Continue current medication Stable Chronic thrombocytopenia 2 to chemo tx. plt 107 No active bleeding Monitor cbc DVT prophylaxis, SCDs due to thrombocytopenia. . Full code. DISPOSITION PT/OT evaluation Waiting for placement Current Inpatient Medications: Current Inpatient Medications Medications (Trade) Dose Ordered Sig/Nga Route Start Time Stop Time Status Last Admin Dose Admin Acetaminophen (Tylenol Tab) 650 mg Q4H PRN PO 08/18/16 20:15 09/17/16 20:14 Levothyroxine Sodium (Synthroid Tab) 100 mcg DAILYBB PO 08/19/16 06:30 09/18/16 06:59 08/25/16 06:20 100 MCG Multivitamins (Multivitamin Tab) 1 tab DAILY PO 08/19/16 08:00 09/18/16 08:59 08/25/16 08:06 1 TAB Prednisone (PredniSONE TAB) 20 mg DAILY PO 08/19/16 08:00 09/18/16 07:59 08/25/16 08:06 20 MG Pyridostigmine [place] (Mestinon Tab) 180 mg BID PO 08/18/16 20:00 09/17/16 19:59 08/25/16 08:07 180 MG Ondansetron HCl (Zofran Inj) 4 mg Q6H PRN IV 08/18/16 20:15 09/17/16 20:14 Tramadol HCl (Ultram Tab) 25 mg Q6H PRN PO 08/18/16 20:15 09/17/16 20:14 Hydromorphone HCl (Dilaudid Inj) 0.5 mg Q3H PRN IV 08/18/16 20:15 09/01/16 20:14 Lorazepam 0.5 mg 0.5 mg Q4H PRN IV 08/18/16 20:15 09/17/16 20:14 Promethazine HCl 12.5 mg/Sodium Chloride 50.5 ml @ 204 mls/hr Q6H PRN IV 08/18/16 20:15 09/17/16 20:14 Lorazepam/Syringe (Ativan Inj/ Syringe) 1 ml @ 1 mls/min Q4H PRN IV 08/18/16 22:00 09/17/16 21:59 Raspberry (Raspberry Syrup 5ml Cup) 5 ml QID PO 08/22/16 17:00 09/01/16 16:59 08/25/16 17:18 5 ML Vancomycin HCl (Vancomycin Oral Soln) 250 mg QID PO 08/23/16 12:00 09/06/16 11:59 08/25/16 17:18 250 MG
[2016-08-26 04:17] VITALS: BP 162/80; PULSE 74; TEMP 36.5; O2SAT 96
[2016-08-26] MEDS: LEVOTHYROXINE 100 MCG TAB PO SCH (06:39)
[2016-08-26] MEDS: RASPBERRY SYRUP 5 ML UDP PO SCH ×4 (08:00→20:55)
[2016-08-26] MEDS: MULTIVITAMIN TAB PO SCH (08:00)
[2016-08-26] MEDS: PYRIDOSTIGMINE BROMIDE 60 MG TAB PO SCH ×2 (08:00→20:55)
[2016-08-26] MEDS: VANCOMYCIN HCL 250 MG/5 ML SOLN PO SCH ×4 (08:00→20:55)
[2016-08-26 08:03] VITALS: BP 169/71; PULSE 66; TEMP 36.5; O2SAT 94
[2016-08-26 08:26] LABS: HEMATOCRIT 37.3 % (37-47); MEAN CELL VOLUME 91.9 fL (80-100); MEAN CORPUSCULAR HEMOGLOBIN 30.3 pg (25-34); MEAN PLATELET VOLUME 10.7 fL (7.4-10.4); PLATELET COUNT 135 K/uL (130-400); RED BLOOD COUNT 4.06 M/uL (4.2-5.4); WHITE BLOOD COUNT 12.54 K/uL (4.8-10.8)
[2016-08-26 09:00] LABS: BUN/CREATININE RATIO 24.8 (10-20); CALCIUM 8.7 mg/dl (8.5-10.1); CREATININE 0.66 mg/dl (0.60-1.20); MAGNESIUM 2.1 mg/dl (1.8-2.4); POTASSIUM 3.9 mmol/L (3.5-5.1)
[2016-08-26 12:04] VITALS: BP 148/75; PULSE 76; TEMP 36.3; O2SAT 96
--- NOTE | 2016-08-26 13:19 | Progress Note ---
Medicine Progress Note Date & Time of Visit: Aug 26, 2016 at 13:08. Subjective Pt was seen and examined sitting at the edge of her bed comfortable eating lunch Pt said that she feels good she said that she already had 2 BM today and last night she had 4 BM But she said that the stool is getting form, no watery stools denies any chest pain, palpitation, dizziness and SOB Objective Last 8 Hrs Date Time Temp Pulse Resp B/P Pulse Ox O2 Delivery O2 Flow Rate FiO2 08/26/16 12:04 36.3 76 20 148/75 96 08/26/16 08:03 36.5 66 16 169/71 94 Room Air 08/26/16 08:00 Room Air Physical Exam: General- No acute distress Head- atraumatic Eyes- PERRL, EOMI ENT- oropharynx clear Neck- supple, no JVD Lungs- clear to auscultation and percussion Heart- regular rhythm; no murmur Abdomen- normal bowel sound, nontender Extremities- no calf tenderness Neuro- alert, oriented x 3; PERRL, EOMI Skin- warm & dry Laboratory Results: Last 24 Hours Test 08/25/16 16:38 08/25/16 19:53 08/26/16 08:05 08/26/16 08:08 Bedside Glucose 203 mg/dl 166 mg/dl 86 mg/dl White Blood Count 12.54 K/uL Red Blood Count 4.06 M/uL Hemoglobin 12.3 g/dL Hematocrit 37.3 % Mean Corpuscular Volume 91.9 fL Mean Corpuscular Hemoglobin 30.3 pg Mean Corpuscular Hemoglobin Concent 33.0 g/dl RDW Standard Deviation 65.3 fL RDW Coefficient of Variation 19.6 % Platelet Count 135 K/uL Mean Platelet Volume 10.7 fL Sodium Level 138 mmol/L Potassium Level 3.9 mmol/L Chloride Level 106 mmol/L Carbon Dioxide Level 25 mmol/L Anion Gap 7.0 mmol/L Blood Urea Nitrogen 16 mg/dl Creatinine 0.66 mg/dl Est Creatinine Clear Calc Drug Dose 65.1 ml/min Estimated GFR () 98.1 Estimated GFR (Non- 84.6 BUN/Creatinine Ratio 24.8 Random Glucose 83 mg/dl Calcium Level 8.7 mg/dl Magnesium Level 2.1 mg/dl Test 08/26/16 11:32 Bedside Glucose 143 mg/dl Assessment & Plan C Diff Colitis -recurrentX3 Diarrhea associated with Abdominal pain that is improved Has been on IV Flagyl Recent C Diff infection ~1month ago Not septic and or Toxic Flagyl D/C Was starting on taper course of PO vanco 250mg by ID tolerated diet well Diarrhea improved Case discussed with ID that recommended to treat her for a longer period with a taper course of vanco. 08/26 On vanco 250 mg qid by ID Will transition to 125 mg QId upon discharge and pt will need a longer course of abx Diarrhea resolved. had 2 BM this morning continue monitor waiting insurance approval for placement Generalized weakness -immunocompromised patient, -hx bladder cancer status post surgery, radiation, ongoing chemotherapy -hx lung CA sp chemo tx -hx myasthenia gravis on chronic steroid tx -complicated by C Diff colitis -Continue PT/OT - Pt has been refused PT - She participated in Physical therapy today - waiting for insurance approval for placement Electrolytes imbalance Continue monitor electrolytes Stable UTI Ruled out -mixed emily and asymptomatic D/C Cefepime Chronic obstructive pulmonary disease, past tobacco abuse -pulmo status at baseline Continue current medication Stable Chronic thrombocytopenia 2 to chemo tx. plt 135 No active bleeding Stable DVT prophylaxis, SCDs due to thrombocytopenia. . Full code. DISPOSITION PT/OT evaluation Waiting for placement Consultants: ID PT/OT Current Inpatient Medications: Current Inpatient Medications Medications (Trade) Dose Ordered Sig/Nga Route Start Time Stop Time Status Last Admin Dose Admin Acetaminophen (Tylenol Tab) 650 mg Q4H PRN PO 08/18/16 20:15 09/17/16 20:14 Levothyroxine Sodium (Synthroid Tab) 100 mcg DAILYBB PO 08/19/16 06:30 09/18/16 06:59 08/26/16 06:39 100 MCG Multivitamins (Multivitamin Tab) 1 tab DAILY PO 08/19/16 08:00 09/18/16 08:59 08/26/16 08:00 1 TAB Prednisone (PredniSONE TAB) 20 mg DAILY PO 08/19/16 08:00 09/18/16 07:59 08/26/16 08:00 20 MG Pyridostigmine [place] (Mestinon Tab) 180 mg BID PO 08/18/16 20:00 09/17/16 19:59 08/26/16 08:00 180 MG Ondansetron HCl (Zofran Inj) 4 mg Q6H PRN IV 08/18/16 20:15 09/17/16 20:14 Tramadol HCl (Ultram Tab) 25 mg Q6H PRN PO 08/18/16 20:15 09/17/16 20:14 Hydromorphone HCl (Dilaudid Inj) 0.5 mg Q3H PRN IV 08/18/16 20:15 09/01/16 20:14 Lorazepam 0.5 mg 0.5 mg Q4H PRN IV 08/18/16 20:15 09/17/16 20:14 Promethazine HCl 12.5 mg/Sodium Chloride 50.5 ml @ 204 mls/hr Q6H PRN IV 08/18/16 20:15 09/17/16 20:14 Lorazepam/Syringe (Ativan Inj/ Syringe) 1 ml @ 1 mls/min Q4H PRN IV 08/18/16 22:00 09/17/16 21:59 Raspberry (Raspberry Syrup 5ml Cup) 5 ml QID PO 08/22/16 17:00 09/01/16 16:59 08/26/16 11:11 5 ML Vancomycin HCl (Vancomycin Oral Soln) 250 mg QID PO 08/23/16 12:00 09/06/16 11:59 08/26/16 11:11 250 MG
[2016-08-26 15:00] VITALS: BP 131/66; PULSE 72; TEMP 36.3; O2SAT 97
[2016-08-26 19:41] VITALS: BP 151/75; PULSE 65; TEMP 36.5; O2SAT 100
[2016-08-26 23:11] VITALS: BP 166/72; PULSE 72; TEMP 36.6; O2SAT 97
[2016-08-27] VITALS (7 sets, daily range): BP systolic 146–176; BP diastolic 69–75; PULSE 68–80; TEMP 36.3–36.6; O2SAT 93–96
[2016-08-27] MEDS: LEVOTHYROXINE 100 MCG TAB PO SCH (06:10)
[2016-08-27] MEDS: RASPBERRY SYRUP 5 ML UDP PO SCH ×3 (08:19→17:24)
[2016-08-27] MEDS: MULTIVITAMIN TAB PO SCH (08:19)
[2016-08-27] MEDS: PYRIDOSTIGMINE BROMIDE 60 MG TAB PO SCH (08:19)
[2016-08-27] MEDS: VANCOMYCIN HCL 250 MG/5 ML SOLN PO SCH ×3 (08:19→17:25)
[2016-08-27 09:35] LABS: HEMATOCRIT 34.9 % (37-47); MEAN CELL VOLUME 93.3 fL (80-100); MEAN CORPUSCULAR HEMOGLOBIN 30.5 pg (25-34); MEAN CORPUSCULAR HGB CONC 32.7 g/dl (32-36); MEAN PLATELET VOLUME 10.9 fL (7.4-10.4); PLATELET COUNT 154 K/uL (130-400); RED BLOOD COUNT 3.74 M/uL (4.2-5.4); WHITE BLOOD COUNT 10.28 K/uL (4.8-10.8)
[2016-08-27 09:56] LABS: BUN/CREATININE RATIO 20.6 (10-20); CALCIUM 8.2 mg/dl (8.5-10.1); CREATININE 0.84 mg/dl (0.60-1.20); POTASSIUM 3.4 mmol/L (3.5-5.1)
--- NOTE | 2016-08-27 11:20 | Infectious Disease Progress Nt ---
Progress Note Date of Service Aug 27, 2016. Subjective Pt evaluation today including: conversation w/ patient, physical exam, chart review, lab review, review of studies, conversation w/ nutrition consultant (Dr. Liriano) , review of inpatient medication list WBC count this morning down to 10.28. Creatinine is 0.84 this morning. Patient was not happy to be woken up this morning. She states that she got very little sleep again last night due to being up having BM's. She states that her stools have formed slightly but continue to be very frequent. She hasn't had any abdominal pain, SOB, or other new complaints. All Other Systems: Reviewed and Negative Medications Current Inpatient Medications Medications (Trade) Dose Ordered Sig/Nga Route Start Time Stop Time Status Last Admin Dose Admin Acetaminophen (Tylenol Tab) 650 mg Q4H PRN PO 08/18/16 20:15 09/17/16 20:14 Levothyroxine Sodium (Synthroid Tab) 100 mcg DAILYBB PO 08/19/16 06:30 09/18/16 06:59 08/27/16 06:10 100 MCG Multivitamins (Multivitamin Tab) 1 tab DAILY PO 08/19/16 08:00 09/18/16 08:59 08/27/16 08:19 1 TAB Prednisone (PredniSONE TAB) 20 mg DAILY PO 08/19/16 08:00 09/18/16 07:59 08/27/16 08:18 20 MG Pyridostigmine [place] (Mestinon Tab) 180 mg BID PO 08/18/16 20:00 09/17/16 19:59 08/27/16 08:19 180 MG Ondansetron HCl (Zofran Inj) 4 mg Q6H PRN IV 08/18/16 20:15 09/17/16 20:14 Tramadol HCl (Ultram Tab) 25 mg Q6H PRN PO 08/18/16 20:15 09/17/16 20:14 Hydromorphone HCl (Dilaudid Inj) 0.5 mg Q3H PRN IV 08/18/16 20:15 09/01/16 20:14 Lorazepam 0.5 mg 0.5 mg Q4H PRN IV 08/18/16 20:15 09/17/16 20:14 Promethazine HCl 12.5 mg/Sodium Chloride 50.5 ml @ 204 mls/hr Q6H PRN IV 08/18/16 20:15 09/17/16 20:14 Lorazepam/Syringe (Ativan Inj/ Syringe) 1 ml @ 1 mls/min Q4H PRN IV 08/18/16 22:00 09/17/16 21:59 Raspberry (Raspberry Syrup 5ml Cup) 5 ml QID PO 08/22/16 17:00 09/01/16 16:59 08/27/16 08:19 5 ML Vancomycin HCl (Vancomycin Oral Soln) 250 mg QID PO 08/23/16 12:00 09/06/16 11:59 08/27/16 08:19 250 MG Objective Vital Signs Date Time Temp Pulse Resp B/P Pulse Ox O2 Delivery O2 Flow Rate FiO2 08/27/16 08:10 36.6 73 20 176/69 95 08/27/16 08:00 95 Room Air 08/27/16 04:00 36.5 68 20 167/75 93 Room Air 08/27/16 00:30 Room Air 08/26/16 23:11 36.6 72 16 166/72 97 Room Air 08/26/16 20:00 Room Air 08/26/16 19:41 36.5 65 18 151/75 100 Room Air 08/26/16 16:00 Room Air 08/26/16 15:00 36.3 72 20 131/66 97 08/26/16 12:04 36.3 76 20 148/75 96 Physical Exam General Appearance: WD/WN, no apparent distress Eyes: normal inspection, sclerae normal ENT: hearing grossly normal Neck: supple, trachea midline Respiratory/Chest: no respiratory distress, no accessory muscle use Neurologic/Psychiatric: alert Skin: normal color, warm/dry, no rash Laboratory Results Last 24 Hours Test 08/26/16 11:32 08/26/16 16:28 08/26/16 20:24 08/27/16 08:07 Bedside Glucose 143 mg/dl 169 mg/dl 145 mg/dl 94 mg/dl Test 08/27/16 09:14 White Blood Count 10.28 K/uL Red Blood Count 3.74 M/uL Hemoglobin 11.4 g/dL Hematocrit 34.9 % Mean Corpuscular Volume 93.3 fL Mean Corpuscular Hemoglobin 30.5 pg Mean Corpuscular Hemoglobin Concent 32.7 g/dl RDW Standard Deviation 66.8 fL RDW Coefficient of Variation 19.7 % Platelet Count 154 K/uL Mean Platelet Volume 10.9 fL Sodium Level 142 mmol/L Potassium Level 3.4 mmol/L Chloride Level 106 mmol/L Carbon Dioxide Level 29 mmol/L Anion Gap 7.0 mmol/L Blood Urea Nitrogen 17 mg/dl Creatinine 0.84 mg/dl Est Creatinine Clear Calc Drug Dose 51.0 ml/min Estimated GFR () 77.2 Estimated GFR (Non- 66.6 BUN/Creatinine Ratio 20.6 Random Glucose 126 mg/dl Calcium Level 8.2 mg/dl Assessment and Plan Patient with C. Diff colitis in the setting of chemotherapy treatment for Bladder cancer and recent antibiotic use for UTI. This is her 3rd episode of C. Diff. She was increased to PO Vancomycin 250 QID. She appears to be improving. Feel that she likely would benefit from higher dose of Vancomycin for now- consider continuing 250 mg QID x 1 more week. Would then recommend tapering down to 125 mg QID x 1 month with follow up with ID to continue a prolonged taper due to the severity of the patient's C. Diff infection. PROVIDER ADDENDUM: Patient reviewed with Ms. Talbot. Agree with above assessment.
[2016-08-27] MEDS ORDERED: POTASSIUM CHLORIDE 20 MEQ TABCR PO ONE (13:00)
--- NOTE | 2016-08-27 16:34 | Progress Note ---
Medicine Progress Note Date & Time of Visit: Aug 27, 2016 at 16:24. Subjective Pt was seen and examined Lying in bed with no distress Pt said that she feels fine she said that her stools are not loose anymore they are getting more solid denies any chest pain, palpitation, dizziness and SOB Objective Last 8 Hrs Date Time Temp Pulse Resp B/P Pulse Ox O2 Delivery O2 Flow Rate FiO2 08/27/16 15:00 36.3 76 20 146/75 96 08/27/16 11:41 36.3 80 20 147/72 96 Room Air Physical Exam: General- No acute distress Head- atraumatic Eyes- PERRL, EOMI ENT- oropharynx clear Neck- supple, no JVD Lungs- clear to auscultation and percussion Heart- regular rhythm; no murmur Abdomen- normal bowel sound, nontender Extremities- no calf tenderness Neuro- alert, oriented x 3; PERRL, EOMI Skin- warm & dry Laboratory Results: Last 24 Hours Test 08/26/16 16:28 08/26/16 20:24 08/27/16 08:07 08/27/16 09:14 Bedside Glucose 169 mg/dl 145 mg/dl 94 mg/dl White Blood Count 10.28 K/uL Red Blood Count 3.74 M/uL Hemoglobin 11.4 g/dL Hematocrit 34.9 % Mean Corpuscular Volume 93.3 fL Mean Corpuscular Hemoglobin 30.5 pg Mean Corpuscular Hemoglobin Concent 32.7 g/dl RDW Standard Deviation 66.8 fL RDW Coefficient of Variation 19.7 % Platelet Count 154 K/uL Mean Platelet Volume 10.9 fL Sodium Level 142 mmol/L Potassium Level 3.4 mmol/L Chloride Level 106 mmol/L Carbon Dioxide Level 29 mmol/L Anion Gap 7.0 mmol/L Blood Urea Nitrogen 17 mg/dl Creatinine 0.84 mg/dl Est Creatinine Clear Calc Drug Dose 51.0 ml/min Estimated GFR () 77.2 Estimated GFR (Non- 66.6 BUN/Creatinine Ratio 20.6 Random Glucose 126 mg/dl Calcium Level 8.2 mg/dl Test 08/27/16 11:34 Bedside Glucose 153 mg/dl Assessment & Plan C Diff Colitis -recurrentX3 Diarrhea associated with Abdominal pain that is improved Has been on IV Flagyl Recent C Diff infection ~1month ago Not septic and or Toxic Flagyl D/C Was starting on taper course of PO vanco 250mg by ID tolerated diet well Diarrhea improved Case discussed with ID that recommended to treat her for a longer period with a taper course of vanco. 08/26 On vanco 250 mg qid by ID Will transition to 125 mg QId upon discharge and pt will need a longer course of abx Diarrhea resolved. had 2 BM this morning continue monitor waiting insurance approval for placement 08/27 On vanco 250mg QID Discussed with ID that recommends to continue vanco 250mgx for 1 more week then 125 mg QID x 1 month and follow up with ID for a longer taper due to the recurrent C. Diff infection. Generalized weakness -immunocompromised patient, -hx bladder cancer status post surgery, radiation, ongoing chemotherapy -hx lung CA sp chemo tx -hx myasthenia gravis on chronic steroid tx -complicated by C Diff colitis -Continue PT/OT -Will transfer to rehab Electrolytes imbalance Continue monitor electrolytes Stable UTI Ruled out -mixed emily and asymptomatic D/C Cefepime Chronic obstructive pulmonary disease, past tobacco abuse -pulmo status at baseline Continue current medication Stable Chronic thrombocytopenia 2 to chemo tx. plt 154 No active bleeding Stable DVT prophylaxis, SCDs due to thrombocytopenia. . Full code. DISPOSITION PT/OT evaluation Will transfer to rehab today at [facility] Consultants: DARINEL PT/OT Current Inpatient Medications: Current Inpatient Medications Medications (Trade) Dose Ordered Sig/Nga Route Start Time Stop Time Status Last Admin Dose Admin Acetaminophen (Tylenol Tab) 650 mg Q4H PRN PO 08/18/16 20:15 09/17/16 20:14 Levothyroxine Sodium (Synthroid Tab) 100 mcg DAILYBB PO 08/19/16 06:30 09/18/16 06:59 08/27/16 06:10 100 MCG Multivitamins (Multivitamin Tab) 1 tab DAILY PO 08/19/16 08:00 09/18/16 08:59 08/27/16 08:19 1 TAB Prednisone (PredniSONE TAB) 20 mg DAILY PO 08/19/16 08:00 09/18/16 07:59 08/27/16 08:18 20 MG Pyridostigmine [place] (Mestinon Tab) 180 mg BID PO 08/18/16 20:00 09/17/16 19:59 08/27/16 08:19 180 MG Ondansetron HCl (Zofran Inj) 4 mg Q6H PRN IV 08/18/16 20:15 09/17/16 20:14 Tramadol HCl (Ultram Tab) 25 mg Q6H PRN PO 08/18/16 20:15 09/17/16 20:14 Hydromorphone HCl (Dilaudid Inj) 0.5 mg Q3H PRN IV 08/18/16 20:15 09/01/16 20:14 Lorazepam 0.5 mg 0.5 mg Q4H PRN IV 08/18/16 20:15 09/17/16 20:14 Promethazine HCl 12.5 mg/Sodium Chloride 50.5 ml @ 204 mls/hr Q6H PRN IV 08/18/16 20:15 09/17/16 20:14 Lorazepam/Syringe (Ativan Inj/ Syringe) 1 ml @ 1 mls/min Q4H PRN IV 08/18/16 22:00 09/17/16 21:59 Raspberry (Raspberry Syrup 5ml Cup) 5 ml QID PO 08/22/16 17:00 09/01/16 16:59 08/27/16 11:40 5 ML Vancomycin HCl (Vancomycin Oral Soln) 250 mg QID PO 08/23/16 12:00 09/06/16 11:59 08/27/16 11:41 250 MG Enteral Nutritional Formula (Boost Glucose Control) 1 can QDD PO 08/27/16 17:00 09/26/16 16:59
[2016-08-27] MEDS ORDERED: VANC5CAP PO (16:42)
--- NOTE | 2016-08-27 16:49 | Discharge Instructions ---
Discharge Instructions Admission Reason for Admission: Colitis Discharge Discharge Diagnosis / Problem: Recurrent C-Diff, Electrolytes imbalance, Generalized weakness Discharge Goals Goal(s): Decrease discomfort, Improve function, Improve disease control Activity Recommendations Activity Limitations: resume your previous activity (as tolerated) . Instructions / Follow-Up Instructions / Follow-Up Discharge to [facility] today with daughter Continue PT/OT Fall precaution Monitor electrolytes Complete antibiotic course Follow up with your primary care provider when discharge from rehab Follow up with infectious disease Dr. Mirian Martines or Aleah Talbot[facility] s [facility], [address], [address], [place]. To schedule an appointment, call [phone] Current Hospital Diet Patient's current hospital diet: Diabetes Type 2 Diet, Low Fiber Diet Discharge Diet Recommended Diet: Diabetes Type 2 Diet, Low Fiber Diet Pending Studies Studies pending at discharge: no Medical Emergencies . Who to Call and When: Medical Emergencies: If at any time you feel your situation is an emergency, please call [phone] immediately. . Non-Emergent Contact Non-Emergency issues call your: Primary Care Provider Call Non-Emergent contact if: you have a fever, you have any medication questions . . "Provider Documentation" section prepared by Lis Liriano. VTE Core Measure Inpt VTE Proph given/why not?: SCD's (low platelet)
[2016-08-27] MEDS ORDERED: NUTR-7 PO (16:53)
[2016-08-27] MEDS ORDERED: BOOST GLUCOSE CONTROL PO SCH ×2 (17:00)
--- NOTE | 2016-08-30 23:38 | Discharge Summary ---
Discharge Summary Admission Date: Aug 18, 2016 at 20:06 Discharge Date: Aug 27, 2016 Discharge Disposition: Rehab Principal Diagnosis: Diarrhea/colitis f Secondary Diagnoses/Problems: Recurrent C-Diff, Electrolytes imbalance, Generalized weakness Procedures: CT SCAN OF THE ABDOMEN AND PELVIS WITHOUT CONTRAST CLINICAL HISTORY: Left abd pain, possible UTI, Left Nephrostomy, Bladder CA COMPARISON STUDY: 04/28/2016 TECHNIQUE: CT scan of the abdomen and pelvis was performed from the lung bases to the proximal femurs. Images are reviewed in the axial, sagittal, and coronal planes. IV contrast was not administered for this examination. CT DOSE: 271.08 mGy.cm FINDINGS: Lower chest: There is underlying emphysema. There is a stable 4 mm right lower lobe pulmonary nodule. Liver: There is a stable 11 mm hypodensity within the hepatic dome. There is trace perihepatic fluid. There is a stable 19 mm hypodensity within the right hepatic lobe. These lesions approach water attenuation and likely represent cysts. Gallbladder: Cholelithiasis Spleen: Normal in size and attenuation. Pancreas: Unremarkable. Adrenal glands: Unremarkable. Kidneys: There is a 15 mm upper pole left renal cyst. There is residual a left-sided nephrostomy tube. There is no significant hydronephrosis. No ureteral or bladder calculi are visualized. Bowel: There are no transition zones indicate bowel obstruction. There is scott diverticulosis. There is diffuse colonic wall thickening with areas of infiltration involving the pericolonic fat. The findings are suggestive of a pancolitis. Peritoneum: There is trace free fluid. No free air is visualized. Vasculature: The abdominal aorta is normal in course and caliber. Adenopathy: None. Pelvic viscera: The bladder, and pelvic viscera are unremarkable. Skeletal structures: No destructive osseous lesions are seen. IMPRESSION: 1. No evidence of bowel obstruction. No evidence of free air 2. Scott diverticulosis 3. Diffuse colonic wall thickening with infiltration of the pericolonic fat. The findings are indicative of a pancolitis 4. Cholelithiasis 5. Trace ascites 6. Stable 4 mm right lower lobe pulmonary nodule Electronically signed by: Julio C Levy M.D. 08/18/2016 5:43 PM Consultations: ID PT/OT Medication Reconciliation New Medications: Vancomycin Hcl (Vancomycin) 125 Mg Cap 125 MG PO UD for 37 Days, CAP Vanco 250 mg QID for 1 week, then taper to vanco 125 mg QID for 1 month Nutritional Supplements (Boost) 1 Liq Liq 1 CAN PO QDD for 15 Days Continued Medications: Calcium Carbonate-Cholecalcife (Caltrate 600+D) 1 Tab Tab 2 TABS PO DAILY Cholecalciferol (Vitamin D 400 Iu) 400 Unit Cap 400 INTER.UNIT PO DAILY, CAP Levothyroxine Sodium (Levothyroxine Sodium) 100 Mcg Tab 1 TAB PO DAILY for 30 Days, #30 TAB 5 Refills Multivitamin (Multivitamin) Tab 1 TAB PO DAILY, TAB Ondansetron Hcl (Zofran) 8 Mg Tab 8 MG PO TID PRN for Nausea, TAB Prednisone (Prednisone) 10 Mg Tab 20 MG PO QD Prochlorperazine Maleate (Compazine) 10 Mg Tab 10 MG PO Q6H PRN for Nausea, TAB NAUSEA/VOMITING Pyridostigmine Theodosia (Mestinon) 60 Mg Tab 180 MG PO BID, TAB Admission Information HPI (per Admitting provider): Medical history significant for COPD, past tobacco abuse, NSCLC sp chemotx, bladder cancer, status post surgery, radiation, ongoing chemotherapy, chronic anemia, baseline hemoglobin 9, history of C. dif sp Vanco. hx myasthenia gravis on chronic steroid tx, chronic thrombocytopenia Recent confinement last month for neutropenic fever. UA grew pseudomonas. Discharged on Cipro course. Patient also developed C. dif. Dcd on p.o. vancomycin. Since discharge persistent diarrhea symptoms. The last few days increasing generalized weakness, left-sided achy abdominal pain. No cough symptoms, dark urine drainage from L nephrostomy. At the Emergency Room, the patient received Cipro for possible UTI. Flagyl for CT findings of possible colitis. Physical Exam (per Admitting): PHYSICAL EXAMINATION: VITAL SIGNS: Blood pressure was noted to be 118/74, pulse rate 88, RR 25, temperature 37.5, sats 96% on room air. GENERAL: Noted to be slightly uncomfortable, anxious, in no respiratory distress, looks younger for stated age. SKIN : pallor HEENT: Pale palpebral conjunctivae. Dry mucosa. NECK: No JVD. supple CHEST: Decreased breath sounds. HEART: Regular rate and rhythm. ABDOMEN: Some distention, tenderness on the left side. EXTREMITIES: No edema. no tenderness NEUROLOGIC: No gross focality. Hospital Course C Diff Colitis -recurrentX3 Diarrhea associated with Abdominal pain that is improved Has been on IV Flagyl Recent C Diff infection ~1month ago Not septic and or Toxic Flagyl D/C Was starting on taper course of PO vanco 250mg by ID tolerated diet well Diarrhea improved Case discussed with ID that recommended to treat her for a longer period with a taper course of vanco. 08/26 On vanco 250 mg qid by ID Will transition to 125 mg QId upon discharge and pt will need a longer course of abx Diarrhea resolved. had 2 BM this morning continue monitor waiting insurance approval for placement 08/27 On vanco 250mg QID Discussed with ID that recommends to continue vanco 250mgx for 1 more week then 125 mg QID x 1 month and follow up with ID for a longer taper due to the recurrent C. Diff infection. Generalized weakness -immunocompromised patient, -hx bladder cancer status post surgery, radiation, ongoing chemotherapy -hx lung CA sp chemo tx -hx myasthenia gravis on chronic steroid tx -complicated by C Diff colitis -Continue PT/OT -Will transfer to rehab Electrolytes imbalance Continue monitor electrolytes Stable UTI Ruled out -mixed emily and asymptomatic D/C Cefepime Chronic obstructive pulmonary disease, past tobacco abuse -pulmo status at baseline Continue current medication Stable Chronic thrombocytopenia 2 to chemo tx. plt 154 No active bleeding Stable DVT prophylaxis, SCDs due to thrombocytopenia. . Full code. DISPOSITION PT/OT evaluation Will transfer to rehab today at [facility] Total time spent on discharge = 35 minutes This includes examination of the patient, discharge planning, medication reconciliation, and communication with other providers. Discharge Instructions Discharge Instructions Admission Reason for Admission: Colitis Discharge Discharge Diagnosis / Problem: Recurrent C-Diff, Electrolytes imbalance, Generalized weakness Discharge Goals Goal(s): Decrease discomfort, Improve function, Improve disease control Activity Recommendations Activity Limitations: resume your previous activity (as tolerated) . Instructions / Follow-Up Instructions / Follow-Up Discharge to [facility] today with daughter Continue PT/OT Fall precaution Monitor electrolytes Complete antibiotic course Follow up with your primary care provider when discharge from rehab Follow up with infectious disease Dr. Mirian Martines or [facility], [address], [address], [place]. To schedule an appointment, call [phone] Current Hospital Diet Patient's current hospital diet: Diabetes Type 2 Diet, Low Fiber Diet Discharge Diet Recommended Diet: Diabetes Type 2 Diet, Low Fiber Diet Pending Studies Studies pending at discharge: no Medical Emergencies . Who to Call and When: Medical Emergencies: If at any time you feel your situation is an emergency, please call 911 immediately. . Non-Emergent Contact Non-Emergency issues call your: Primary Care Provider Call Non-Emergent contact if: you have a fever, you have any medication questions . . "Provider Documentation" section prepared by Lis Liriano. VTE Core Measure Inpt VTE Proph given/why not?: SCD's (low platelet) Additional Copies To Alysha, John Hernandez M.D.
[2016-09-03] MEDS ORDERED: NUTR-468 PO (14:20)
[2016-11-23] MEDS ORDERED: MULT-506 PO (08:45)
[2016-11-23] MEDS ORDERED: LEVO100T7 PO (13:31)
[2016-11-23] MEDS ORDERED: PROC1TAB5 PO (15:39)
[2016-11-23] MEDS ORDERED: ONDA8TAB6 PO (15:39)
[2016-11-23] MEDS ORDERED: CALC-354 PO (15:39)
[2016-11-23] MEDS ORDERED: CHOL400C7 PO (17:54)
[2016-11-28] MEDS ORDERED: ATRINS INH (18:26)
[2016-11-28] MEDS ORDERED: NUTR-7 PO (18:26)
[2016-11-28] MEDS ORDERED: HPRIS5M SQ (18:26)
[2016-11-28] MEDS ORDERED: XPNINS1255 INH (18:26)
[2016-11-28] MEDS ORDERED: PRD20 PO (18:26)
[2016-11-28] MEDS ORDERED: VNCS125 PO (18:26)
[2016-11-28] MEDS ORDERED: PRD5 PO (18:26)
== END 2016-08-27 18:20 | DRG 373 ==
LOC: ENRESERVTM → ENRESERVDT → EDBD 15:12 → C.EDB 15:13 → UNDOADMIN 20:06 → C.4E 20:06
PROVIDERS: ADMIT Internal Medicine; ATTEND Internal Medicine
DX: A04.7 Enterocolitis due to Clostridium difficile (principal); K57.90 Diverticulosis of intestine, part unspecified, without perforation or abscess without bleeding; T45.1X5A Adverse effect of antineoplastic and immunosuppressive drugs, initial encounter; N18.3 Chronic kidney disease, stage 3 (moderate); E11.21 Type 2 diabetes mellitus with diabetic nephropathy; C67.9 Malignant neoplasm of bladder, unspecified; J44.9 Chronic obstructive pulmonary disease, unspecified; E03.9 Hypothyroidism, unspecified; M81.0 Age-related osteoporosis without current pathological fracture; G70.00 Myasthenia gravis without (acute) exacerbation; E86.0 Dehydration; K80.20 Calculus of gallbladder without cholecystitis without obstruction; N28.1 Cyst of kidney, acquired; D69.59 Other secondary thrombocytopenia; Z79.52 Long term (current) use of systemic steroids; Z87.891 Personal history of nicotine dependence; Z85.118 Personal history of other malignant neoplasm of bronchus and lung; Z92.3 Personal history of irradiation; Y92.009 Unspecified place in unspecified non-institutional (private) residence as the place of occurrence of the external cause; D63.0 Anemia in neoplastic disease; R06.09 Other forms of dyspnea

== ENCOUNTER → 2016-09-03 | Outpatient (CLI) | payer OTHER ==
[~2016-09-03] MED LIST changes: +ATRINS INH; +CALC-354 PO; -CALC-51; +CHOL400C7 PO; +HPRIS5M SQ; +LEVO100T7 PO; +MSTSR180; +MULT-506 PO; +NUTR-468 PO; +NUTR-7 PO; +ONDA8TAB6 PO; +PRD10 PO; +PRD20 PO; +PRD5 PO; +PRED20TA PO; +PROC1TAB5 PO; +PYRI60TA2 PO; +VANC5CAP PO; +VNCS125 PO; +XPNINS1255 INH
[2016-09-03 14:05] VITALS: BP 150/92; PULSE 73; TEMP 36.9; O2SAT 96
--- NOTE | 2016-09-03 16:02 | Radiation Oncology Follow-Up ---
Radiation Oncology Follow-Up Date of Visit Sep 03, 2016. 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 Parrish is a 76-year-old female who recently presented with an episode of hematuria. She did present to the emergency Department at [facility] in the beginning of April 2016. While here, she did have a CT abdomen and pelvis on 04/28/2016 which revealed a 5 cm bladder mass, left- sided hydronephrosis, hypodense hepatic lesions and a 15 mm pleural-based opacity in the right middle lobe. The patient was subsequently evaluated by Dr. Ray Flores from urology who did perform a cystoscopy on 04/29/2016 which revealed a large 6-7 cm bladder tumor covering the left ureteral orifice and left lateral wall and an additional second 4 cm bladder tumor at the dome. Biopsies were obtained at the time of the procedure and confirmed transitional cell carcinoma that was low-grade but there was not enough tissue at the time to obtain if there is muscle invasive disease. She subsequently had a completion of her staging workup which included a CT thorax on 05/01/2016 which revealed: "IMPRESSION: 1. Bilateral irregular apical masslike opacities measuring 37 mm on the right and 29 mm and the left. In addition there are multiple bilateral groundglass pulmonary nodule or opacities, as well as a 15 mm solid pleural-based opacity within the right middle lobe. 2. Is not possible to determine whether the above-mentioned parenchymal lesions are inflammatory or neoplastic. 3. If prior outside studies could be retrieved, these would be of benefit. 4. Short-term follow-up is recommended." She had a bone scan on which was negative for metastatic disease. After the pulmonary findings, the patient was seen by Dr. Mikal Sterling from thoracic surgery. Dr. Sterling brought the patient to the operating room on for a bronchoscopy with multiple randomized biopsies. The right upper lobe mass came back consistent with at least adenocarcinoma in situ and the left upper lobe mass came back consistent with invasive adenocarcinoma, acinar type. Molecular genetic testing is pending. Brushings were also positive but lymph node biopsies of station 7, R10, L10 were all negative. The patient subsequently underwent a PET/CT scan on 05/14/2016 which revealed: "IMPRESSION: 1. Multiple bilateral pulmonary opacities, 4 of which are FDG avid, and likely neoplastic 2. 3.6 cm left-sided bladder mass 3. Left-sided hydronephrosis and hydroureter 4. Cholelithiasis 5. No evidence of FDG avid adenopathy 6. Mildly FDG avid focus fusing to the sternum. No definite destructive lesions are visualized in the cuffing CT scan." The patient was subsequently seen in consultation by Dr. Jose Alvarez for medical oncology and the case was also discussed at the multidisciplinary tumor board clinic. The consensus recommendation from the group was definitive treatment for the bladder cancer with chemotherapy and radiation therapy followed by systemic therapy to treat both the bladder cancer and lung cancer with restaging scans to follow. We are now seeing the patient in consultation to discuss the role of radiation therapy. Overall, the patient is doing relatively well. She does have some mild hematuria but it is much better at this point after she did have placement of her left nephrostomy tube and the biopsies from Dr. Flores. Her complete review of systems was otherwise negative. The final decision was to treat with palliation to the bladder. This was completed 07/08/2016. She received 5500 cGy (Cherie Oconnor PA-C) Interim History Over this past 2 months in regards to her urination she now has urgency and incontinence. She felt previously she had better control of her bladder. The hematuria has completely resolved. She unfortunately developed Clostridium difficile again and was hospitalized from 08/18/2016 to 09/06/2016. She was quite debilitated from the illness. She lost weight. Following her hospitalization she was in [facility] for 4 days. She has now returned home. She is on a tapering dose of vancomycin. She is tolerating this well. She denies any nausea or vomiting due to the antibiotic therapy. She has seen Dr. Flores follow-up. She'll be seeing Dr. Alvarez next week. Today she underwent a PET scan. She called our office and asked to be seen in follow-up today to save her a trip back to our office for the follow-up visit. Balance are now occurring 3-4 times per day. This is steadily improving. Appetite is stable. She had discussed that we'll hospitalize she was mainly on a liquid diet. I'll she was in hospital she also had a CAT scan. This showed that she was having the pancolitis. CT did not address the bladder tumor. (Cherie Oconnor PA-C) Allergies Coded Allergies: Statins (Unverified Adverse Reaction, Unknown, MUSCLE PAIN, 08/18/16) Home Medications Scheduled Calcium Carbonate-Cholecalcife (Caltrate 600+D), 2 TABS PO DAILY Cholecalciferol (Vitamin D 400 Iu), 400 INTER.UNIT PO DAILY Levothyroxine Sodium (Levothyroxine Sodium), 1 TAB PO DAILY Multivitamin (Multivitamin), 1 TAB PO DAILY Nutritional Supplements (Glucerna), 1-2 CAN PO DAILY Prednisone (Prednisone), 20 MG PO QD Pyridostigmine [place] (Mestinon), 180 MG PO BID Vancomycin Hcl (Vancomycin), 125 MG PO UD Scheduled PRN Ondansetron Hcl (Zofran), 8 MG PO TID PRN for Nausea Prochlorperazine Maleate (Compazine), 10 MG PO Q6H PRN for Nausea Review of Systems Gastrointestinal: Symptoms: Diarrhea GI Comments: 3-4 diarrhea stools a day, urgency with BM`s Oral: Symptoms: No Problems Respiratory: Symptoms: WNL Urinary: Symptoms: Incontinence, Frequency Comments: wears a pad Skin: Symptoms: No Problems Additional Notes: She completed a distress management report and answered all no" to all questions other than she has concerns about bathing and sleeping. Problem with bathing is the percutaneous nephrostomy tubes. She cannot take a shower. She therefore take sponge baths. She is okay with this at this time. The problem with sleeping is that she has the frequency of urination and bowel movements. This hopefully will also improve with treatment of the C. difficile and getting further out from the radiation therapy. (Cherie Oconnor PA-C) Physical Exam Vital Signs Date Time Temp Pulse Resp B/P Pulse Ox O2 Delivery O2 Flow Rate FiO2 09/03/16 14:05 36.9 73 18 150/92 96 Pain: Side: Bilateral Patient Pain Scale: 0 - 10 Initial Pain Intensity: 0.0 ECOG Performance Status: 1 Fatigue: Mild General Appearance: no apparent distress Eyes: normal inspection, EOMI ENT: normal ENT inspection, hearing grossly normal, pharynx normal Neck: no adenopathy, thyroid normal Respiratory/Chest: lungs clear, no respiratory distress, no accessory muscle use Cardiovascular: regular rate, rhythm, no gallop, no murmur Abdomen: normal bowel sounds, non tender, soft, no organomegaly, no pulsatile mass Extremities: no pedal edema Neurologic/Psychiatric: no motor/sensory deficits, alert, normal mood/affect Skin: warm/dry Lymphatic: no adenopathy (Cherie Oconnor PA-C) Laboratory Studies Test 06/13/16 19:14 06/28/16 22:55 06/28/16 23:07 06/28/16 23:10 Globulin 3.7 gm/dl (2.5-4.0) 3.2 gm/dl (2.5-4.0) Albumin/Globulin Ratio 0.8 (0.9-2) 0.8 (0.9-2) Prothrombin Time 9.9 SECONDS (9.0-12.0) Prothrombin Time INR 0.9 (0.9-1.1) PTT 24.5 SECONDS (21.0-31.0) Partial Thromboplastin Ratio 0.9 Total Bilirubin 0.9 mg/dl (0.2-1) Aspartate Amino Transferase (AST) 17 U/L (15-37) Alanine Aminotransferase (ALT) 19 U/L (12-78) Alkaline Phosphatase 47 U/L (45-117) Total Protein 5.8 gm/dl (6.4-8.2) Albumin 2.6 gm/dl (3.4-5.0) POC Lactic Acid Venous 0.58 mmol/L (0.90-1.70) Urine Color YELLOW Urine Appearance CLOUDY (CLEAR) Urine pH >= 9.0 (4.5-7.5) Urine Specific [place] 1.008 (1.000-1.030) Urine Protein 2+ (NEG) Urine Glucose (UA) NEG (NEG) Urine Ketones NEG (NEG) Urine Occult Blood 2+ (NEG) Urine Nitrite NEG (NEG) Urine Bilirubin NEG (NEG) Urine Urobilinogen NEG (NEG) Urine Leukocyte Esterase LARGE (NEG) Urine WBC (Auto) >30 /hpf (0-5) Urine RBC (Auto) >30 /hpf (0-4) Urine Hyaline Casts (Auto) 10-30 /lpf (0-5) Urine Epithelial Cells (Auto) >30 /lpf (0-5) Urine Bacteria (Auto) 2+ (NEG) Test 06/30/16 05:40 06/30/16 08:44 07/02/16 05:37 07/06/16 05:50 Platelet Estimate DECREASED Thyroid Stimulating Hormone (TSH) 1.890 uIu/ml (0.300-4.500) Heparin-PF4 Antibody Screen NEG (NEG) Immature Granulocyte % (Auto) 2.1 % White Blood Count 2.42 K/uL (4.8-10.8) Red Blood Count 3.22 M/uL (4.2-5.4) Hemoglobin 9.7 g/dL (12.0-16.0) Hematocrit 27.6 % (37-47) Mean Corpuscular Volume 85.7 fL (80-100) Mean Corpuscular Hemoglobin 30.1 pg (25-34) Mean Corpuscular Hemoglobin Concent 35.1 g/dl (32-36) Platelet Count 43 K/uL (130-400) Mean Platelet Volume 9.6 fL (7.4-10.4) Neutrophils (%) (Auto) 50.8 % Lymphocytes (%) (Auto) 25.6 % Monocytes (%) (Auto) 19.8 % Eosinophils (%) (Auto) 1.7 % Basophils (%) (Auto) 0.0 % Neutrophils # (Auto) 1.23 K/uL (1.4-6.5) Lymphocytes # (Auto) 0.62 K/uL (1.2-3.4) Monocytes # (Auto) 0.48 K/uL (0.11-0.59) Eosinophils # (Auto) 0.04 K/uL (0-0.5) Basophils # (Auto) 0.00 K/uL (0-0.2) Immature Granulocyte # (Auto) 0.05 K/uL (0.00-0.02) Nucleated RBC Absolute Count (auto) 0.02 K/uL (0-0) Nucleated Red Blood Cells % 0.5 % Test 08/18/16 15:55 08/18/16 16:18 08/19/16 07:02 08/20/16 06:20 Urine Color YELLOW Urine Appearance TURBID (CLEAR) Urine pH >= 9.0 (4.5-7.5) Urine Specific [place] 1.014 (1.000-1.030) Urine Protein 4+ (NEG) Urine Glucose (UA) 2+ (NEG) Urine Ketones NEG (NEG) Urine Occult Blood NEG (NEG) Urine Nitrite NEG (NEG) Urine Bilirubin NEG (NEG) Urine Urobilinogen NEG (NEG) Urine Leukocyte Esterase TRACE (NEG) Urine WBC (Auto) 5-10 /hpf (0-5) Urine RBC (Auto) 10-30 /hpf (0-4) Urine Hyaline Casts (Auto) 5-10 /lpf (0-5) Urine Epithelial Cells (Auto) >30 /lpf (0-5) Urine Bacteria (Auto) 4+ (NEG) Urine Crystals TRIPLE PHOSPHATE Urine Pathogenic Casts /lpf (0) Urine Yeast (Auto) PRESENT (NONE PRSENT) Immature Granulocyte % (Auto) 1.9 % White Blood Count 3.60 K/uL (4.8-10.8) Red Blood Count 3.85 M/uL (4.2-5.4) Hemoglobin 12.2 g/dL (12.0-16.0) Hematocrit 34.8 % (37-47) Mean Corpuscular Volume 90.4 fL (80-100) Mean Corpuscular Hemoglobin 31.7 pg (25-34) Mean Corpuscular Hemoglobin Concent 35.1 g/dl (32-36) Platelet Count 129 K/uL (130-400) Mean Platelet Volume 10.0 fL (7.4-10.4) Neutrophils (%) (Auto) 78.6 % Lymphocytes (%) (Auto) 8.1 % Monocytes (%) (Auto) 10.8 % Eosinophils (%) (Auto) 0.3 % Basophils (%) (Auto) 0.3 % Neutrophils # (Auto) 2.83 K/uL (1.4-6.5) Lymphocytes # (Auto) 0.29 K/uL (1.2-3.4) Monocytes # (Auto) 0.39 K/uL (0.11-0.59) Eosinophils # (Auto) 0.01 K/uL (0-0.5) Basophils # (Auto) 0.01 K/uL (0-0.2) Immature Granulocyte # (Auto) 0.07 K/uL (0.00-0.02) Nucleated RBC Absolute Count (auto) 0.02 K/uL (0-0) Nucleated Red Blood Cells % 0.5 % Anisocytosis PRESENT PRESENT Macrocytosis PRESENT Total Bilirubin 0.8 mg/dl (0.2-1) Direct Bilirubin 0.2 mg/dl (0-0.2) Aspartate Amino Transferase (AST) 23 U/L (15-37) Alanine Aminotransferase (ALT) 17 U/L (12-78) Alkaline Phosphatase 57 U/L (45-117) Troponin I < 0.015 ng/ml (0-0.045) Total Protein 5.8 gm/dl (6.4-8.2) Albumin 2.3 gm/dl (3.4-5.0) Lipase 94 U/L (73-393) Neutrophils % (Manual) 83.3 % 90.4 % Lymphocytes % (Manual) 6.1 % 0.9 % Monocytes % (Manual) 7.9 % 5.2 % Metamyelocytes % 0.9 % 2.6 % Myelocytes % 1.8 % 0.9 % Neutrophils # (Manual) 4.13 K/uL (1.4-6.5) 9.22 K/uL (1.4-6.5) Total Absolute Neutrophils 4.13 K/uL (1.4-6.5) 9.22 K/uL (1.4-6.5) Lymphocytes # (Manual) 0.30 K/uL (1.2-3.4) 0.09 K/uL (1.2-3.4) Total Absolute Lymphocytes 0.30 K/uL (1.2-3.4) 0.09 K/uL (1.2-3.4) Monocytes # (Manual) 0.39 K/uL (0.11-0.59) 0.53 K/uL (0.11-0.59) Metamyelocytes # 0.04 K/uL (0-0) 0.27 K/uL (0-0) Myelocytes # 0.09 K/uL (0-0) 0.09 K/uL (0-0) Dohle Bodies 1+ 1+ Toxic Granulation 1+ Echinocytes 1+ Test 08/24/16 06:10 08/25/16 05:49 08/26/16 08:05 08/27/16 09:14 Phosphorus Level 2.3 mg/dl (2.5-4.9) 2.5 mg/dl (2.5-4.9) Magnesium Level 1.7 mg/dl (1.8-2.4) 2.1 mg/dl (1.8-2.4) White Blood Count 12.54 K/uL (4.8-10.8) 10.28 K/uL (4.8-10.8) Red Blood Count 4.06 M/uL (4.2-5.4) 3.74 M/uL (4.2-5.4) Hemoglobin 12.3 g/dL (12.0-16.0) 11.4 g/dL (12.0-16.0) Hematocrit 37.3 % (37-47) 34.9 % (37-47) Mean Corpuscular Volume 91.9 fL (80-100) 93.3 fL (80-100) Mean Corpuscular Hemoglobin 30.3 pg (25-34) 30.5 pg (25-34) Mean Corpuscular Hemoglobin Concent 33.0 g/dl (32-36) 32.7 g/dl (32-36) RDW Standard Deviation 65.3 fL (36.4-46.3) 66.8 fL (36.4-46.3) RDW Coefficient of Variation 19.6 % (11.5-14.5) 19.7 % (11.5-14.5) Platelet Count 135 K/uL (130-400) 154 K/uL (130-400) Mean Platelet Volume 10.7 fL (7.4-10.4) 10.9 fL (7.4-10.4) Sodium Level 138 mmol/L (136-145) 142 mmol/L (136-145) Potassium Level 3.9 mmol/L (3.5-5.1) 3.4 mmol/L (3.5-5.1) Chloride Level 106 mmol/L (98-107) 106 mmol/L (98-107) Carbon Dioxide Level 25 mmol/L (21-32) 29 mmol/L (21-32) Anion Gap 7.0 mmol/L (3-11) 7.0 mmol/L (3-11) Blood Urea Nitrogen 16 mg/dl (7-18) 17 mg/dl (7-18) Creatinine 0.66 mg/dl (0.60-1.20) 0.84 mg/dl (0.60-1.20) Est Creatinine Clear Calc Drug Dose 65.1 ml/min 51.0 ml/min Estimated GFR () 98.1 77.2 Estimated GFR (Non- 84.6 66.6 BUN/Creatinine Ratio 24.8 (10-20) 20.6 (10-20) Random Glucose 83 mg/dl (70-99) 126 mg/dl (70-99) Calcium Level 8.7 mg/dl (8.5-10.1) 8.2 mg/dl (8.5-10.1) Test 08/27/16 11:34 08/27/16 16:32 POC Glucose 153 mg/dl (70-90) 176 mg/dl (70-90) (Cherie Oconnor PA-C) Assessment & Plan Plan: Patient is also seen and examined by Dr. Alvarez. He reviewed with her the PET/CT today. The written results are not given but the scan didn't show a response of the tumor in her bladder. She'll see Dr. Jose Alvarez next week. Continue follow-up with Dr. Flores. She is completing the vancomycin which is treating the Clostridium difficile. We reviewed with her the urgency of urination as well as incontinence. It is hoped that if this is secondary to the radiation that'll be improvement over time. She continues with Dr. Sterling in regards to the diagnosis of lung cancer. We asked her to return to our office in 6 months. She may call if she has any questions or concerns. Medical oncology will be reviewing the final results of the PET/CT. She may call if she has any questions or concerns in the interim. (Cherie Oconnor PA-C) I agree with note created by Cherie Oconnor PA-C. I reviewed the patient's chart and information with her. I have examined and evaluated the patient. I reviewed relevant clinical information and answered the patient's and/or family' s questions. (Veeral. Alvarez MD) Total Time In Follow-Up I spent 20 minutes speaking to the patient in performing examination. I spent 15 minutes reviewing information in completing this note. (Cherie Oconnor PA-C) I spent 15 minutes examining and counseling the patient. (Veeral. Alvarez MD) Copy To John Jaimes M.D.; Jose Alvarez M.D. Problem Qualifiers (1) Bladder cancer: Bladder location: lateral wall Qualified Codes: C67.2 - Malignant neoplasm of lateral wall of bladder
== END | disposition home or self-care (01) ==
LOC: C.ONC 14:04
PROVIDERS: ATTEND Radiology Radiation Oncology
DX: Z08 Encounter for follow-up examination after completed treatment for malignant neoplasm (principal); Z92.3 Personal history of irradiation; Z85.51 Personal history of malignant neoplasm of bladder

== ENCOUNTER → 2016-09-03 | Outpatient (CLI) | payer OTHER ==
--- NOTE | 2016-09-03 15:05 | DIAGNOSTIC IMAGING REPORT ---
PET/CT SKULL-THIGH CLINICAL HISTORY: BLADDER CA COMPARISON STUDY: 05/14/2016 FINDINGS: The patient was imaged following administration of 15.1 mCi of F 18 labeled FDG. Findings standard induction phase, PET/CT scanning is performed from the skull base the upper thigh region. Uptake within the neck is felt to be physiologic. Within the chest, there are FDG avid biapical masslike opacities measuring 28 mm on the right and 29 mm on the left. Additional left upper lobe groundglass point nodules measuring 8 mm and 8 mm are also evident. These remain similar to a prior April 2016 study. There is also a partially solid and groundglass right upper lobe pulmonary nodule measuring 9 mm. This also remains stable. There is also a 15 mm right apical pulmonary nodule. The previously described pleural-based right middle lobe pulmonary nodule is no longer evident. There is no pathologic mediastinal, hilar, or axillary activity. Within the abdomen, there is no pathologic hepatic or splenic activity. There are stable hepatic hypodensities, likely representing cysts. There is cholelithiasis. There is been interval placement of a left-sided nephrostomy catheter with resolution of the hydroureter. There is no pathologic andrey activity within the abdomen or pelvis. The patient's bladder mass appears smaller. There is physiologic urinary tract and bowel activity. There is urinary contamination within the perineum. There is activity within the patient's nephrostomy catheter. There is no pathologic skeletal activity. IMPRESSION: 1. Interval decrease in the size of the patient's bladder mass 2. No evidence of pathologic andrey activity within the chest abdomen or pelvis 3. Interval placement of a left-sided nephrostomy catheter 4. Stable biapical pulmonary masses which remain FDG avid. 5. The previously identified pleural-based FDG avid right middle lobe pulmonary nodule is no longer visualized. 6. Cholelithiasis Electronically signed by: Julio C Levy M.D. 09/03/2016 3:03 PM Dictated Date/Time: 09/03/2016 2:23 PM
== END | disposition home or self-care (01) ==
LOC: C.PET 11:07
PROVIDERS: ATTEND Internal Medicine Hematology
DX: C67.2 Malignant neoplasm of lateral wall of bladder (principal); C34.11 Malignant neoplasm of upper lobe, right bronchus or lung; K80.20 Calculus of gallbladder without cholecystitis without obstruction; Z08 Encounter for follow-up examination after completed treatment for malignant neoplasm; Z92.3 Personal history of irradiation

== ENCOUNTER → 2016-10-03 | Outpatient (CLI) | payer OTHER | END | disposition home or self-care (01) | LOC: C.LABSPEC 17:36 | PROVIDERS: ATTEND Urology | DX: C67.9 Malignant neoplasm of bladder, unspecified (principal); N39.0 Urinary tract infection, site not specified ==

== ENCOUNTER 2016-11-23 17:58 | Inpatient (IN) | payer OTHER ==
[~2016-11-23] VITALS: Ht 172.7 cm; Wt 55.0 kg
[~2016-11-23 17:58] MED LIST changes: -ATRINS INH; -HPRIS5M SQ; -MSTSR180; -NUTR-7 PO; -PRD10 PO; -PRD20 PO; -PRD5 PO; -PRED20TA PO; -PYRI60TA2 PO; -VANC5CAP PO; -VNCS125 PO; -XPNINS1255 INH
[2016-11-23] MEDS ORDERED: SODIUM CHLORIDE 0.9% 500ML 500 ML IV STA (18:14)
[2016-11-23 18:34] LABS: URINE APPEARANCE CLEAR (CLEAR); URINE BILIRUBIN NEG (NEG); URINE COLOR YELLOW; URINE EPITHELIAL CELL AUTO 0-5 /lpf (0-5); URINE NITRITE NEG (NEG); URINE SPECIFIC GRAVITY 1.008 (1.000-1.030); UROBILINOGEN NEG (NEG)
[2016-11-23 18:37] LABS: MANUAL MICROSCOPIC REQUIRED? NO; REVIEW REQ? NO
--- NOTE | 2016-11-23 18:47 | DIAGNOSTIC IMAGING REPORT ---
CHEST ONE VIEW PORTABLE HISTORY: Short of breath. COMPARISON: Chest 08/18/2016. FINDINGS: Bilateral upper lobe pulmonary nodules remain unchanged. No new focal lung consolidations to suggest pneumonia. No evidence for pulmonary edema. No pleural effusions. No pneumothorax. The heart is normal in size. Mild interstitial thickening is likely chronic. Left-sided percutaneous nephrostomy tube. IMPRESSION: No significant change compared to the prior study. No acute process. Bilateral upper lobe pulmonary nodules are again noted. Electronically signed by: Tito Huston M.D. 11/23/2016 6:45 PM Dictated Date/Time: 11/23/2016 6:43 PM
[2016-11-23 19:01] LABS: BASO % 0.2 %; BASO ABS # 0.02 K/uL (0-0.2); COMPLETE YES; HEMATOCRIT 40.7 % (37-47); IG% 3.1 %; LYMPH % 5.5 %; LYMPH ABS # 0.56 K/uL (1.2-3.4); MEAN CELL VOLUME 101.2 fL (80-100); MEAN CORPUSCULAR HEMOGLOBIN 34.3 pg (25-34); MEAN CORPUSCULAR HGB CONC 33.9 g/dl (32-36); MEAN PLATELET VOLUME 10.5 fL (7.4-10.4); MONO % 9.5 %; NEUT % 81.7 %; PLATELET COUNT 281 K/uL (130-400); RED BLOOD COUNT 4.02 M/uL (4.2-5.4); WHITE BLOOD COUNT 10.22 K/uL (4.8-10.8)
[2016-11-23] MEDS ORDERED: PRED20TA PO (19:05)
--- NOTE | 2016-11-23 19:09 | DIAGNOSTIC IMAGING REPORT ---
HEAD CT NONCONTRAST CT DOSE: 1203.96 mGy.cm HISTORY: Stroke symptoms. TECHNIQUE: Multiaxial CT images of the head were performed without the use of intravenous contrast. Automated exposure control was utilized for this study. Comparison: None. Findings: Single opacified right ethmoid air cell. No levels within the paranasal sinuses. The mastoid air cells are clear. The calvarium and skull base are intact. There is no mass, hematoma, midline shift, acute infarct. White matter hypodensity is nonspecific but suggestive of microvascular ischemic change. The ventricles and sulci demonstrate mild age-related involutional changes. Impression: No acute intracranial abnormality. Atrophy and microvascular ischemic changes. Electronically signed by: Tito Huston M.D. 11/23/2016 7:07 PM Dictated Date/Time: 11/23/2016 7:04 PM
[2016-11-23 19:12] LABS: INR 0.9 (0.9-1.1); PARTIAL THROMBOPLASTIN RATIO 0.9; PROTHROMBIN TIME (PATIENT) 9.6 SECONDS (9.0-12.0)
[2016-11-23 19:17] LABS: BUN/CREATININE RATIO 22.1 (10-20); CALCIUM 8.8 mg/dl (8.5-10.1); CREATININE 0.75 mg/dl (0.60-1.20); POTASSIUM 4.4 mmol/L (3.5-5.1)
[2016-11-23] MEDS ORDERED: OPTIRAY 320 IV PRN (19:30)
[2016-11-23] MEDS ORDERED: PYRI60TA2 PO (19:43)
[2016-11-23] MEDS ORDERED: PRD10 PO (19:43)
--- NOTE | 2016-11-23 20:10 | DIAGNOSTIC IMAGING REPORT ---
CHEST CTA for PULMONARY ARTERIES CT DOSE: 237.11 mGycm HISTORY: Weakness. Short of breath. TECHNIQUE: Multiaxial CT images of the chest were performed following the intravenous administration of contrast to evaluate the pulmonary arteries. Maximal intensity projection images were also obtained. COMPARISON STUDY: Chest CT 05/01/2016. PET CT 09/03/2016. FINDINGS: No evidence for an aortic dissection. The heart is normal in size. No pleural or pericardial effusions. No evidence for pulmonary embolus. Cholelithiasis. Stable hypodense lesions within the liver and left kidney. These favor cysts. Stable 1 cm hypodense nodule within the left thyroid lobe. No mediastinal or hilar lymphadenopathy. No pneumothorax. No significant change in the dominant irregular masslike opacities within the upper lobes. Multiple additional scattered smaller groundglass opacities are also unchanged compared to the prior PET/CT. These are seen throughout the lungs but most pronounced within the upper lobes. No new focal lung consolidations. Mild emphysema. IMPRESSION: 1. No evidence for pulmonary embolus. 2. No significant change in the upper lobe irregular masslike opacities and multiple additional scattered groundglass opacities. Neoplasm remains the diagnosis of exclusion. 3. Cholelithiasis. 4. No new focal lung consolidations. Electronically signed by: Tito Huston M.D. 11/23/2016 8:07 PM Dictated Date/Time: 11/23/2016 7:57 PM
--- NOTE | 2016-11-23 22:09 | EMERGENCY ROOM VISIT NOTE ---
History Report prepared by Richard: Natalie Meehan Under the Supervision of: Dr. Lg Galvez M.D. First contact with patient: 18:06 Chief Complaint: SHORTNESS OF BREATH Stated Complaint: SOB/Weakness History of Present Illness The patient is a 76 year old female who presents to the Emergency Room with complaints of constant shortness of breath that started earlier today. She is also experiencing weakness and fatigue, which she states started when she was diagnosed with C. Diff 3 months ago. The patient is still experiencing diarrhea and just finished a second course of Flagyl 2 days ago per her daughter. Additionally, the patient began experiencing double vision today. She states that the double vision is relieved when she closes one of her eyes. The patient is also experiencing an occasional cough, but denies fevers, chest pain/ discomfort, and abdominal pain. She states that she chronically has trouble swallowing. The patient adds that she has myasthenia gravis and is on Mestinon for it, which she states she has not missed any doses of. The patient's daughter adds that the patient also has lung cancer and bladder cancer. The patient denies any history of pulmonary emboli. Source of History: patient, family (daughter) Onset: earlier today Position: chest Quality: other (shortness of breath) Timing: constant Associated Symptoms: + diarrhea, + fatigue, + weakness, No abdominal pain, No chest pain, No fevers Note: double vision Review of Systems See HPI for pertinent positives & negatives. A total of 10 systems reviewed and were otherwise negative. Past Medical & Surgical Medical Problems: (1) Bladder cancer (2) Chronic steroid use (3) CKD (chronic kidney disease), stage III (4) Colitis (5) COPD (chronic obstructive pulmonary disease) (6) Diabetes (7) Diplopia (8) Dyslipidemia (9) Elevated troponin (10) Febrile neutropenia (11) Hypothyroidism (12) Lung cancer (13) Myasthenia gravis (14) Nodule of right lung (15) Osteoporosis Surgical Problems: (1) Hx of tonsillectomy (2) S/P tonsillectomy and adenoidectomy Family History Cancer Social History Smoking Status: Former Smoker Marital Status: single Occupation Status: retired Current/Historical Medications Scheduled Calcium Carbonate-Cholecalcife (Caltrate 600+D), 1 TABS PO DAILY Cholecalciferol (Vitamin D 400 Iu), 400 INTER.UNIT PO DAILY Levothyroxine Sodium (Levothyroxine Sodium), 1 TAB PO DAILY Multivitamin (Multivitamin), 1 TAB PO DAILY Prednisone (Prednisone), 20 MG PO DAILY Pyridostigmine [place] (Mestinon), 180 MG PO BID Scheduled PRN Ondansetron Hcl (Zofran), 8 MG PO TID PRN for Nausea Prochlorperazine Maleate (Compazine), 10 MG PO Q6H PRN for Nausea Allergies Coded Allergies: Aspartame (Verified Allergy, Severe, UPSET STOMACH, WT LOSS, INSOMIA, ) Statins (Unverified Adverse Reaction, Unknown, MUSCLE PAIN, 08/18/16) Physical Exam Vital Signs Date Time Temp Pulse Resp B/P Pulse Ox O2 Delivery O2 Flow Rate FiO2 11/23/16 21:09 83 18 161/95 93 Room Air 11/23/16 19:18 74 18 177/86 94 Room Air 11/23/16 18:45 72 11/23/16 18:26 95 Room Air 11/23/16 18:25 95 Room Air 11/23/16 18:12 94 Room Air 11/23/16 18:12 36.5 80 20 163/104 95 Room Air Physical Exam Constitutional: Vital signs reviewed. Eyes: Pupils are equal round reactive to light. Conjunctiva are noninjected. Slight dysconjugate gaze to the left. No abducens nerve palsy. Double vision on leftward gaze. ENT: Pharynx is clear without erythema or exudate. Mucous membranes are moist. Neck supple without meningeal signs. Respiratory: Clear to auscultation bilaterally. Breath sounds are equal bilaterally. Cardiovascular: Regular rate and rhythm. No rubs or gallops. GI: Soft, nondistended and nontender. Bowel sounds are present. Musculoskeletal: No peripheral edema. No lower extremity tenderness. Integumentary: No cyanosis. Neurological: The patient is awake and alert. Cranial nerves II-XII are intact. Motor is 5 out of 5 all extremities. Sensation is intact to light touch all extremities. Normal speech. No pronator drift. No limb ataxia. No fatigability with muscle strength testing. Psychiatric: Normal affect. Medical Decision & Procedures ER Provider Diagnostic Interpretation: Radiology results as stated below per my review and the radiologist's interpretation: CHEST ONE VIEW PORTABLE IMPRESSION: No significant change compared to the prior study. No acute process. Bilateral upper lobe pulmonary nodules are again noted. Electronically signed by: Tito Huston M.D. 11/23/2016 6:45 PM Dictated Date/Time: 11/23/2016 6:[address] NONCONTRAST Impression: No acute intracranial abnormality. Atrophy and microvascular ischemic changes. Electronically signed by: Tito Huston M.D. 11/23/2016 7:07 PM Dictated Date/Time: 11/23/2016 7:04 PM CHEST CTA for PULMONARY ARTERIES IMPRESSION: 1. No evidence for pulmonary embolus. 2. No significant change in the upper lobe irregular masslike opacities and multiple additional scattered groundglass opacities. Neoplasm remains the diagnosis of exclusion. 3. Cholelithiasis. 4. No new focal lung consolidations. Electronically signed by: Tito Huston M.D. 11/23/2016 8:07 PM Dictated Date/Time: 11/23/2016 7:57 PM Laboratory Results 11/23/16 18:49 Red Blood Count 4.02, Mean Corpuscular Volume 101.2, Mean Corpuscular Hemoglobin 34.3, Mean Corpuscular Hemoglobin Concent 33.9, Mean Platelet Volume 10.5, Neutrophils (%) (Auto) 81.7, Lymphocytes (%) (Auto) 5.5, Monocytes (%) ( Auto) 9.5, Eosinophils (%) (Auto) 0.0, Basophils (%) (Auto) 0.2, Neutrophils # ( Auto) 8.35, Lymphocytes # (Auto) 0.56, Monocytes # (Auto) 0.97, Eosinophils # ( Auto) 0.00, Basophils # (Auto) 0.02 11/23/16 18:49 Test 11/23/16 18:24 11/23/16 18:49 11/23/16 18:55 Urine Color YELLOW Urine Appearance CLEAR (CLEAR) Urine pH 5.0 (4.5-7.5) Urine Specific [place] 1.008 (1.000-1.030) Urine Protein NEG (NEG) Urine Glucose (UA) NEG (NEG) Urine Ketones NEG (NEG) Urine Occult Blood 2+ (NEG) Urine Nitrite NEG (NEG) Urine Bilirubin NEG (NEG) Urine Urobilinogen NEG (NEG) Urine Leukocyte Esterase MODERATE (NEG) Urine WBC (Auto) >30 /hpf (0-5) Urine RBC (Auto) 0-4 /hpf (0-4) Urine Hyaline Casts (Auto) 0 /lpf (0-5) Urine Epithelial Cells (Auto) 0-5 /lpf (0-5) Urine Bacteria (Auto) NEG (NEG) White Blood Count 10.22 K/uL (4.8-10.8) Red Blood Count 4.02 M/uL (4.2-5.4) Hemoglobin 13.8 g/dL (12.0-16.0) Hematocrit 40.7 % (37-47) Mean Corpuscular Volume 101.2 fL (80-100) Mean Corpuscular Hemoglobin 34.3 pg (25-34) Mean Corpuscular Hemoglobin Concent 33.9 g/dl (32-36) Platelet Count 281 K/uL (130-400) Mean Platelet Volume 10.5 fL (7.4-10.4) Neutrophils (%) (Auto) 81.7 % Lymphocytes (%) (Auto) 5.5 % Monocytes (%) (Auto) 9.5 % Eosinophils (%) (Auto) 0.0 % Basophils (%) (Auto) 0.2 % Neutrophils # (Auto) 8.35 K/uL (1.4-6.5) Lymphocytes # (Auto) 0.56 K/uL (1.2-3.4) Monocytes # (Auto) 0.97 K/uL (0.11-0.59) Eosinophils # (Auto) 0.00 K/uL (0-0.5) Basophils # (Auto) 0.02 K/uL (0-0.2) RDW Standard Deviation 52.2 fL (36.4-46.3) RDW Coefficient of Variation 14.0 % (11.5-14.5) Immature Granulocyte % (Auto) 3.1 % Immature Granulocyte # (Auto) 0.32 K/uL (0.00-0.02) Prothrombin Time 9.6 SECONDS (9.0-12.0) Prothromb Time International Ratio 0.9 (0.9-1.1) Activated Partial Thromboplast Time 23.8 SECONDS (21.0-31.0) Partial Thromboplastin Ratio 0.9 Anion Gap 5.0 mmol/L (3-11) Est Creatinine Clear Calc Drug Dose 58.3 ml/min Estimated GFR () 88.5 Estimated GFR (Non- 76.3 BUN/Creatinine Ratio 22.1 (10-20) Calcium Level 8.8 mg/dl (8.5-10.1) Bedside Troponin I 0.110 ng/ml (0-0.045) Laboratory results as reviewed by me. Medications Administered Medications (Trade) Dose Ordered Sig/Nga Route Start Time Stop Time Status Last Admin Dose Admin Sodium Chloride (Nss 500ml) 500 ml @ 999 mls/hr Q31M STAT IV 11/23/16 18:14 11/23/16 18:44 DC 11/23/16 18:14 999 MLS/HR ECG Indication: SOB/dyspnea Rate (beats per minute): 73 Rhythm: sinus rhythm Findings: PVC, RBBB (incomplete) Comparison ECG Date: 08/18/2016 Change: PVCs are new ED Course 1806: The patient was evaluated in room C3. A complete history and physical exam was performed. 1813: Ordered Sodium Chloride 500 ml @ 999 mls/hr IV 1919: I reassessed the patient and talked about her test results. The patient agreed to getting a CT of her chest. 2015: Upon reevaluation, the patient appeared to be resting comfortably. I discussed tonight's findings with her. She verbalized agreement of the treatment plan. She will be evaluated for further management. 2019: [facility] We discussed the patient and her results. She requested that I order a MRI of the patient's brain. The patient will be further evaluated by her. 2024: I updated the patient on my conversation with Dr. Fofana and I informed her that I ordered a MRI. Medical Decision This is a 76-year-old female who presents with shortness of breath and weakness. Differential diagnosis includes pneumonia, cardiac disease, pulmonary embolism, dehydration, C. difficile, myasthenia crisis, anemia. I did perform a limited focused review of portions of the patient's old chart on the electronic medical record. The patient has had no recent pertinent visits to this hospital. I did evaluate the patient as noted above. She is presenting with weakness, shortness of breath and double vision. It is unclear whether this is secondary to her myasthenia or another etiology. She does not have any significant muscle fatigability on testing. Her diplopia seems to be present when she looks to the left only. IV access was established. The patient was placed on a continuous classroom monitor. I did order and personally review the patient's 12-lead EKG and chest x-ray as described above. I did order and review the patient's blood work as noted in the electronic medical record. Her troponin is slightly elevated. I did order a CT of the head and chest. I did review the images myself as well as the radiology report as described above. There is no evidence of stroke on scan of the head. No evidence of pulmonary embolism on CT of the chest. I did discuss the test results with the patient. I did recommend hospitalization for further evaluation. I did discuss case with Dr. Fofana and the case operator. Dr. Fofana requested that I order an MRI of the brain to rule out CVA. I did order an MRI and MRA of the head and neck. The patient will be hospitalized. Consults Time Called: 2015 Consulting Physician: Dr. Brigido Gutierrez [facility] Returned Call: [address] Fofana of [facility]. We discussed the patient and her results. She requested that I order a MRI of the patient's brain. The patient will be further evaluated by her. Impression Primary Impression: Dyspnea Additional Impressions: Diplopia Myasthenia gravis Elevated troponin Diarrhea Scribe Attestation The scribe's documentation has been prepared under my direct and personally reviewed by me in its entirety. I confirm that the note above accurately reflects all work, treatment, procedures, and medical decision making performed by me. Departure Information Dispostion Being Evaluated By Hospitalist Referrals John Jaimes M.D. (PCP) Patient Instructions My [facility] Problem Qualifiers Primary Impression: Dyspnea Dyspnea type: unspecified Qualified Codes: R06.00 - Dyspnea, unspecified Additional Impressions: Diarrhea Diarrhea type: unspecified type Qualified Codes: R19.7 - Diarrhea, unspecified
[2016-11-23] MEDS ORDERED: PROCHLORPERAZINE MALEATE 10 MG TAB PO PRN (22:30)
[2016-11-23] MEDS ORDERED: ONDANSETRON INJ 2 MG/ML 2 ML VIAL IV PRN (22:30)
[2016-11-23] MEDS ORDERED: POLYETHYLENE (MIRALAX) 17 GM PACK PO PRN (22:30)
[2016-11-23] MEDS ORDERED: ALUMINUM/MAGNESIUM/SIMETH (MAALOX MAX) 30 ML UDC PO PRN (22:30)
[2016-11-23] MEDS ORDERED: MAGNESIUM HYDROXIDE SUSP 30 ML UDC PO PRN (22:30)
[2016-11-23] MEDS ORDERED: ONDANSETRON 8 MG TAB PO PRN (22:30)
[2016-11-23] MEDS ORDERED: NITROGLYCERIN 0.4 MG SL PER TAB CHARGE SL PRN (22:30)
[2016-11-23] MEDS ORDERED: ACETAMINOPHEN 325 MG TAB PO PRN (22:30)
--- NOTE | 2016-11-23 23:17 | History and Physical ---
History & Physical Date & Time of Service: Nov 23, 2016 at 22:41 Chief Complaint: SOB/Weakness Primary Care Physician: John Jaimes M.D. History of Present Illness Source: patient, clinic records, hospital records This is a 76 year old female with PMH of myasthenia gravis, dyslipidemia, hypothyroidism, lung CA, bladder CA, and other problems noted below who presents to the ED for SOB and diplopia. or past Patient reports SOB starting yesterday at rest and with conversation. She reports diplopia for past 2-3 days. Patient reports generalized weakness and fatigue since hospitalized with C. diff in June 2016. 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 Patient states diarrhea initially improved with tx but recently had become watery again. Had 4-5 BM yesterday and none today. She tested positive for C. diff again on 11/07/16. She was treated with Flagyl which finished 4 days ago. She reports chronic swallowing difficulty with food and liquids getting "stuck". Has chronic speech stuttering but no acute change. She reports urinary incontinence and urgency which is unusual for her. Denies fever , chills, focal weakness or numbness, dizziness, VILLAR, URi symptoms, cough, chest pain, abdominal pain, N/V, flank pain, edema, calf pain. Pt follows with Dr. Carlos for neurology. Denies missed doses of Mestinon. Pt follows with Dr. Alvarez for oncology. Pt states last chemo was October 23, but chemo was held for recent C. diff with plan to resume on November 27. 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 Status post completion of palliative radiation therapy to the bladder 2015 received 5500 cGy Status: Chronic (2) Chronic steroid use Status: Chronic (3) CKD (chronic kidney disease), stage III Status: Chronic (4) COPD (chronic obstructive pulmonary disease) Status: Chronic (5) Dyslipidemia Status: Chronic (6) History of Clostridium difficile Status: Chronic (7) Hypothyroidism Status: Chronic (8) Lung cancer Status: Chronic (9) Myasthenia gravis Status: Chronic (10) Osteoporosis Status: Chronic Surgical Problems: (1) Hx of tonsillectomy Status: Resolved (2) S/p percutaneous nephrostomy tube placement Status: Chronic (3) S/p resection of bladder tumor Status: Chronic (4) S/P tonsillectomy and adenoidectomy Status: Chronic Family History Cancer Social History Smoking Status: Former Smoker Marital Status: single Housing status: lives alone Occupational Status: retired Allergies Coded Allergies: Aspartame (Verified Allergy, Severe, UPSET STOMACH, WT LOSS, INSOMIA, ) Statins (Unverified Adverse Reaction, Unknown, MUSCLE PAIN, 08/18/16) Home Medications Scheduled Calcium Carbonate-Cholecalcife (Caltrate 600+D), 1 TABS PO DAILY Cholecalciferol (Vitamin D 400 Iu), 400 INTER.UNIT PO DAILY Levothyroxine Sodium (Levothyroxine Sodium), 1 TAB PO DAILY Multivitamin (Multivitamin), 1 TAB PO DAILY Prednisone (Prednisone), 20 MG PO DAILY Pyridostigmine [place] (Mestinon), 180 MG PO BID Scheduled PRN Ondansetron Hcl (Zofran), 8 MG PO TID PRN for Nausea Prochlorperazine Maleate (Compazine), 10 MG PO Q6H PRN for Nausea Review of Systems Ten point ROS performed with pertinent positives and negatives noted in HPI. Physical Exam Vital Signs Date Time Temp Pulse Resp B/P Pulse Ox O2 Delivery O2 Flow Rate FiO2 11/23/16 21:09 83 18 161/95 93 Room Air 11/23/16 19:18 74 18 177/86 94 Room Air 11/23/16 18:45 72 11/23/16 18:26 95 Room Air 11/23/16 18:25 95 Room Air 11/23/16 18:12 94 Room Air 11/23/16 18:12 36.5 80 20 163/104 95 Room Air General Appearance: WD/WN, no apparent distress Head: normocephalic, atraumatic Eyes: normal inspection, PERRL, EOMI, sclerae normal, + pertinent finding ( prefers to close the left eye for relief of diplopia) ENT: hearing grossly normal, pharynx normal Neck: supple, trachea midline Respiratory/Chest: lungs clear, normal breath sounds, no respiratory distress Cardiovascular: regular rate, rhythm, no murmur Abdomen/GI: normal bowel sounds, non tender, soft Extremities/Musculoskelatal: no calf tenderness, no pedal edema Neurologic/Psych: 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 as tested, no motor/sensory deficits, alert, normal mood/affect, oriented x 3 Skin: normal color, warm/dry Diagnostics Laboratory Results Results Past 24 Hours Test 11/23/16 18:24 11/23/16 18:49 11/23/16 18:55 Range/Units Urine Color YELLOW Urine Appearance CLEAR CLEAR Urine pH 5.0 4.5-7.5 Urine Specific [place] 1.008 1.000-1.030 Urine Protein NEG NEG Urine Glucose (UA) NEG NEG Urine Ketones NEG NEG Urine Occult Blood 2+ NEG Urine Nitrite NEG NEG Urine Bilirubin NEG NEG Urine Urobilinogen NEG NEG Urine Leukocyte Esterase MODERATE NEG Urine WBC (Auto) >30 0-5 /hpf Urine RBC (Auto) 0-4 0-4 /hpf Urine Hyaline Casts (Auto) 0 0-5 /lpf Urine Epithelial Cells (Auto) 0-5 0-5 /lpf Urine Bacteria (Auto) NEG NEG White Blood Count 10.22 4.8-10.8 K/uL Red Blood Count 4.02 4.2-5.4 M/uL Hemoglobin 13.8 12.0-16.0 g/dL Hematocrit 40.7 37-47 % Mean Corpuscular Volume 101.2 80-100 fL Mean Corpuscular Hemoglobin 34.3 25-34 pg Mean Corpuscular Hemoglobin Concent 33.9 32-36 g/dl Platelet Count 281 130-400 K/uL Mean Platelet Volume 10.5 7.4-10.4 fL Neutrophils (%) (Auto) 81.7 % Lymphocytes (%) (Auto) 5.5 % Monocytes (%) (Auto) 9.5 % Eosinophils (%) (Auto) 0.0 % Basophils (%) (Auto) 0.2 % Neutrophils # (Auto) 8.35 1.4-6.5 K/uL Lymphocytes # (Auto) 0.56 1.2-3.4 K/uL Monocytes # (Auto) 0.97 0.11-0.59 K/uL Eosinophils # (Auto) 0.00 0-0.5 K/uL Basophils # (Auto) 0.02 0-0.2 K/uL RDW Standard Deviation 52.2 36.4-46.3 fL RDW Coefficient of Variation 14.0 11.5-14.5 % Immature Granulocyte % (Auto) 3.1 % Immature Granulocyte # (Auto) 0.32 0.00-0.02 K/uL Prothrombin Time 9.6 9.0-12.0 SECONDS Prothromb Time International Ratio 0.9 0.9-1.1 Activated Partial Thromboplast Time 23.8 21.0-31.0 SECONDS Partial Thromboplastin Ratio 0.9 Sodium Level 140 136-145 mmol/L Potassium Level 4.4 3.5-5.1 mmol/L Chloride Level 104 98-107 mmol/L Carbon Dioxide Level 31 21-32 mmol/L Anion Gap 5.0 3-11 mmol/L Blood Urea Nitrogen 17 7-18 mg/dl Creatinine 0.75 0.60-1.20 mg/dl Est Creatinine Clear Calc Drug Dose 58.3 ml/min Estimated GFR () 88.5 Estimated GFR (Non- 76.3 BUN/Creatinine Ratio 22.1 10-20 Random Glucose 141 70-99 mg/dl Calcium Level 8.8 8.5-10.1 mg/dl Bedside Troponin I 0.110 0-0.045 ng/ml Microbiology Results 11/23/16 Shiga Toxin Test, Beba Batch Pending 11/23/16 Stool Culture, Beba Batch Pending 11/23/16 C.difficile Toxin B Gene (PCR), Beba Batch Pending 11/23/16 Urine Culture, Received Pending Diagnostic Radiology HEAD CT NONCONTRAST CT DOSE: 1203.96 mGy.cm HISTORY: Stroke symptoms. TECHNIQUE: Multiaxial CT images of the head were performed without the use of intravenous contrast. Automated exposure control was utilized for this study. Comparison: None. Findings: Single opacified right ethmoid air cell. No levels within the paranasal sinuses. The mastoid air cells are clear. The calvarium and skull base are intact. There is no mass, hematoma, midline shift, acute infarct. White matter hypodensity is nonspecific but suggestive of microvascular ischemic change. The ventricles and sulci demonstrate mild age-related involutional changes. Impression: No acute intracranial abnormality. Atrophy and microvascular ischemic changes. CHEST ONE VIEW PORTABLE HISTORY: Short of breath. COMPARISON: Chest 08/18/2016. FINDINGS: Bilateral upper lobe pulmonary nodules remain unchanged. No new focal lung consolidations to suggest pneumonia. No evidence for pulmonary edema. No pleural effusions. No pneumothorax. The heart is normal in size. Mild interstitial thickening is likely chronic. Left-sided percutaneous nephrostomy tube. IMPRESSION: No significant change compared to the prior study. No acute process. Bilateral upper lobe pulmonary nodules are again noted. CHEST CTA for PULMONARY ARTERIES CT DOSE: 237.11 mGycm HISTORY: Weakness. Short of breath. TECHNIQUE: Multiaxial CT images of the chest were performed following the intravenous administration of contrast to evaluate the pulmonary arteries. Maximal intensity projection images were also obtained. COMPARISON STUDY: Chest CT 05/01/2016. PET CT 09/03/2016. FINDINGS: No evidence for an aortic dissection. The heart is normal in size. No pleural or pericardial effusions. No evidence for pulmonary embolus. Cholelithiasis. Stable hypodense lesions within the liver and left kidney. These favor cysts. Stable 1 cm hypodense nodule within the left thyroid lobe. No mediastinal or hilar lymphadenopathy. No pneumothorax. No significant change in the dominant irregular masslike opacities within the upper lobes. Multiple additional scattered smaller groundglass opacities are also unchanged compared to the prior PET/CT. These are seen throughout the lungs but most pronounced within the upper lobes. No new focal lung consolidations. Mild emphysema. IMPRESSION: 1. No evidence for pulmonary embolus. 2. No significant change in the upper lobe irregular masslike opacities and multiple additional scattered groundglass opacities. Neoplasm remains the diagnosis of exclusion. 3. Cholelithiasis. 4. No new focal lung consolidations. EKG EKG- sinus rhythm with PVCs, incomplete RBBB Impression Assessment and Plan Patient seen in collaboration with Dr. Fofana. Please see her addendum for assessment and plan. ATTENDING NOTE: pt seen and examined 76 yo F presents with weakness, fatigue, double vision on left eye , worse with left lateral gaze her past medical hx includes -Myesthenia Gravis follows with Neurology Dr Brenner , recurrent c diff , hx of lung CA , bladder CA CT head w/out contrast negative for CVA , MRI/MRA of brain ordered -no acute cva noted , normal algaaciq of [place] [facility] was unremarkable except mild elevation of troponin pt denies of any complain of chest pain or SOB recently completed Flagyl Course for recurrent C diff still having intermittent loose stool P/E: Gen : elderly female, no sign of distress HEENT: keeps left eye closed , as experiencing diplopia , Pupils bilat normal reactive to light extra ocular muscle movement intact pt complains of blurred vision /diplopia on left out rios gaze on visual confrontation exam Lungs: CTA HT: regular Abdomen : soft, non tender EXT ; no rash or deformity , no lower ext edema neuro; normal muscle strength both upper and lower ext, normal sensation exam of left eye as noted above has mild dysarthria -as per pt has been chronic /ferry terminal agent A/P: LEFT EYE BLURRED VISION /DIPLOPIA: no evidence of acute CVA on neuroimaging possible due to Myasthenia ? neurology eval requested pt is continued out pt meds for Myasthenia gravis DIZZY SPELL /LIGHTHEADEDNESS : possible due to dehydration pt mentions of ongoing loose stool IV hydration MRI /MRA of brain -no acute CVA follow PRP ordered for orthostatic vitals SOB /CHÁVEZ : CT chest negative for PE no new infiltrate or pleural effusion note no hypoxia , remains in RA possible due to generalized weakness R/O ACS -serial cardiac markers to be checked ECHO to assess LV function HX OF MYASTHENIA GRAVIS on oral Prednisone and Pyridostigmine new onset of left eye blurred vision no proximal muscle weakness neurology eval requested DYSPHAGIA: pt mentions of difficulty is swallowing food -due to Myasthenia? food getting stuck in her throat no evidence of aspiration in Cxray or CT chest diet changed to mechanical soft aspiration precaution speech eval requested HYPOTHYROIDISM : cont Levothyroxine check TSH level ELEVATED TROPONIN : mild elevation of troponin no complain of chest pain ,or SOB EKG shows incomplete RBBB with frequent PVC' ordered for ECHO tele monitoring serial cardiac markers consider Cardiology eval in troponin level continues to rise HX OF RECURRENT C DIFF ordered for stool for C diff recently completed PO Flagyl cont probiotic POSITIVE UA : pt denies of any urinary symptom urine culture ordered empiric abx not initiated due to hx of recurrent C diff FULL CODE DVT PROPHYLAXIS : moderate risk sub q heparin DISPOSITION : will need PT/OT eval prior to discharge social service consulted for discharge planning Level of Care Telemetry Resuscitation Status FULL RESUSCITATION VTE Prophylaxis VTE Risk Assessment Done? Y/N: Yes Risk Level: Moderate Given or contraindicated: Unfractionated heparin SQ
[2016-11-24] VITALS (7 sets, daily range): BP systolic 132–180; BP diastolic 67–84; PULSE 84–106; TEMP 36.5–37; O2SAT 90–94; Ht 172.7 cm; Wt 55.0 kg
[2016-11-24] MEDS: PYRIDOSTIGMINE BROMIDE 60 MG TAB PO SCH ×2 (00:48→08:08)
[2016-11-24] MEDS ORDERED: GADAVIST IV PRN (01:30)
[2016-11-24 04:29] LABS: BASO % 0.3 %; BASO ABS # 0.03 K/uL (0-0.2); COMPLETE YES; EOS % 0.3 %; IG% 3.8 %; LYMPH % 10.9 %; LYMPH ABS # 1.07 K/uL (1.2-3.4); MEAN CELL VOLUME 101.2 fL (80-100); MEAN CORPUSCULAR HEMOGLOBIN 34.6 pg (25-34); MEAN CORPUSCULAR HGB CONC 34.1 g/dl (32-36); MEAN PLATELET VOLUME 10.3 fL (7.4-10.4); MONO % 11.5 %; NEUT % 73.2 %; PLATELET COUNT 266 K/uL (130-400); RED BLOOD COUNT 4.05 M/uL (4.2-5.4); WHITE BLOOD COUNT 9.83 K/uL (4.8-10.8)
[2016-11-24 04:48] LABS: BUN/CREATININE RATIO 17.5 (10-20); CALCIUM 8.7 mg/dl (8.5-10.1); CREATININE 0.71 mg/dl (0.60-1.20); MAGNESIUM 2.2 mg/dl (1.8-2.4); POTASSIUM 3.9 mmol/L (3.5-5.1)
[2016-11-24 05:05] LABS: CKMB/CK RATIO 3.3 (0-3.0); THYROID STIMULATING HORMONE 2.96 uIu/ml (0.300-4.500)
--- NOTE | 2016-11-24 06:14 | DIAGNOSTIC IMAGING REPORT ---
MR ANGIOGRAPHY OF THE [place] NO CONTRAST CLINICAL HISTORY: Stroke symptoms. BLADDER CARCINOMA COMPARISON STUDY: None. A 3-D [id number] MR angiographic sequence of the [place] was performed. Both the source and projection images were reviewed. There is no evidence of major intracranial branch occlusion. There is no evidence of intracranial stenosis. There are no lesions suspicious for aneurysm. IMPRESSION: Unremarkable MR angiography of the [place]. Electronically signed by: Julio C Levy M.D. 11/24/2016 6:11 AM Dictated Date/Time: 11/24/2016 6:10 AM
--- NOTE | 2016-11-24 06:29 | DIAGNOSTIC IMAGING REPORT ---
MRI OF THE BRAIN WITHOUT AND WITH IV CONTRAST CLINICAL HISTORY: Stroke symptoms. Bladder carcinoma. COMPARISON STUDY: Noncontrast head CT dated 11/23/2016 TECHNIQUE: MRI of the brain was performed from the vertex to the skull base utilizing various T1 and T2 weighted sequences. Following the IV administration of 6 mL of Gadavist contrast, additional enhanced images were obtained. FINDINGS: Sagittal T1, axial diffusion, proton density and T2 weighted axial, coronal FLAIR, and pre and post axial T1-weighted images were acquired. These were supplemented with post gadolinium coronal T1 weighted images. No intra or extra-axial mass lesions are visualized. Axial diffusion-weighted images reveal no evidence of acute or subacute infarction. There is no evidence of ventricular dilatation. Proton density T2-weighted and FLAIR images reveal minimal foci of increased T2 signal surrounding the ventricles, a finding not unexpected for age. A few additional tiny foci of increased FLAIR signal visualized within the periventricular white matter, a finding again not unexpected for age. There are no abnormal flow voids. There is no evidence of pathologic enhancement. There is an opacified right ethmoid air cell. IMPRESSION: Normal MRI of the brain for age Electronically signed by: Julio C Levy M.D. 11/24/2016 6:27 AM Dictated Date/Time: 11/24/2016 6:25 AM
--- NOTE | 2016-11-24 06:36 | DIAGNOSTIC IMAGING REPORT ---
NECK MRA HISTORY: Stroke like symptoms TECHNIQUE: Enjr-qj-cpqigi and gadolinium-enhanced MRA of the neck was performed both before and after the intravenous administration of contrast. All measurements were calculated based on NASCET criteria. The patient was administered 6 cc of intravenous Gadavist. COMPARISON STUDY: None. FINDINGS: The aortic arch and proximal great vessels are widely patent. There is no evidence of vertebral artery stenosis. There is irregular plaque formation involving the origin of the left internal carotid artery with a 60% diameter stenosis. There is a 33% diameter stenosis of the proximal right internal carotid artery. There is a 3 cm right upper lobe airspace opacity IMPRESSION: 1. 60% diameter stenosis left internal carotid artery 2. No evidence of hemodynamic significant right internal carotid artery stenosis 3. No evidence of vertebral artery stenosis 4. 3 cm right upper lobe airspace opacity Electronically signed by: Julio C Levy M.D. 11/24/2016 6:34 AM Dictated Date/Time: 11/24/2016 6:28 AM
[2016-11-24] MEDS: HEPARIN SOD 5000 UNIT/0.5 ML CARP SQ SCH ×3 (06:51→21:02)
[2016-11-24] MEDS: LEVOTHYROXINE 100 MCG TAB PO SCH (06:52)
--- NOTE | 2016-11-24 06:53 | DIAGNOSTIC IMAGING REPORT ---
ULTRASOUND OF THE CAROTID ARTERIES CLINICAL HISTORY: Stroke like symptoms. ABNORMAL MAGNETIC RESONANCE ANGIOGRAPHY COMPARISON STUDY: MRA of the neck dated 11/23/2016 TECHNIQUE: Real-time, grayscale, and color Doppler sonography of the carotid arteries was performed. Imaging reviewed in the transverse and longitudinal planes. NASCET criteria was utilized for stenosis calcification. FINDINGS: There is moderate atherosclerotic plaque present . The peak systolic velocity within the right internal carotid artery is 71 cm/sec. The systolic velocity ratio of right internal to common carotid artery is 1.1. The peak systolic velocity within the left internal carotid artery is 3014 cm/sec. The systolic velocity ratio left internal to common carotid artery is 2.9. Antegrade flow is seen in the vertebral arteries. The external carotid arteries are patent. IMPRESSION: 50-69% stenosis of the left internal carotid artery. Electronically signed by: Julio C Levy M.D. 11/24/2016 6:51 AM Dictated Date/Time: 11/24/2016 6:48 AM
[2016-11-24] MEDS: LACTOBACILLUS ACIDOPHILUS (FLORANEX) TAB PO SCH ×3 (08:10→18:04)
[2016-11-24] MEDS ORDERED: NURSING VERBAL MED ORDER ONE (08:30)
[2016-11-24] MEDS ORDERED: CALCIUM 600MG + VIT D 400 IU TAB PO SCH (09:00)
[2016-11-24] MEDS ORDERED: CHOLECALCIFEROL 400 INTER.UNIT TAB PO SCH (09:00)
[2016-11-24] MEDS ORDERED: MULTIVITAMIN TAB PO SCH (09:00)
--- NOTE | 2016-11-24 11:22 | NEUROLOGY CONSULTATION ---
DATE OF CONSULTATION: 11/24/2016 REASON FOR CONSULTATION: Myasthenia gravis, diplopia. HISTORY OF PRESENT ILLNESS: Mrs. Parrish is well known to me. She is a 76-year-old right-handed female with a longstanding history of generalized myasthenia, although the bulk of her symptoms have been oculobulbar. She has known bladder cancer and lung cancer, for which she has been treated with chemotherapy. She has had C. diff 3 months ago. She finished a second course of Flagyl 2 days prior to admission. She has been generally weak for several days with new diplopia, primarily on left gaze, not associated with ptosis. She has some chronic difficulty with swallowing which is perhaps mildly worse. There has been no change in her speech. No vertigo, unilateral weakness, numbness. About 6 weeks ago, we reduced the dose of prednisone from 20 everyday to 20 alternating with 17.5. A week ago, she increased it back to 20. Her oral intake has been poor and she has lost probably 8-10 pounds since she was in the office 6 weeks ago. PAST MEDICAL HISTORY: Notable for bladder cancer, chronic kidney disease, lung cancer, diabetes, dyslipidemia, febrile neutropenia, hypothyroidism, osteoporosis. PAST SURGICAL HISTORY: Tonsillectomy and adenoidectomy. SOCIAL HISTORY: Former smoker, does not drink alcohol, lives alone. MEDICATIONS: Caltrate, vitamin D, levothyroxine, multivitamin, prednisone 20 daily, M[place] Timespan 160 b.i.d., p.r.n. Zofran and prochlorperazine. ALLERGIES: ASPARTAME AND STATINS. The patient had an MRI performed with and without contrast which I have reviewed and shows no metastatic deposits. There is no evidence of acute infarction. Carotid ultrasound shows asymptomatic left internal carotid stenosis of 50-69%. Neck MRA confirmed 60% stenosis of the left internal carotid. There is a 3 cm right upper lobe airspace opacity. MRA of the head was unremarkable. No evidence of pulmonary embolism. LABORATORY DATA: Her white count on admission was 10.2, H\T\H 13/40, platelet count 281. PT 9.6, PTT 23.8. Chemistry profile notable for troponin of 0.22. Total CK 873. BUN and creatinine 12, on admission was 17/0.75, random glucose 141. Urinalysis: Moderate leukocyte esterase, greater than 30 WBCs, 2+ occult blood. PHYSICAL EXAMINATION: VITAL SIGNS: On admission, 36.5, 80, 20, 163/104, 94%. GENERAL: The patient is awake, alert, oriented x3. No right/left confusion is noted. She is an excellent historian. She is in no respiratory distress, is able to count to 20 on 1 breath. NECK: There are no carotid bruits. Her neck is supple. HEART: No heart murmurs. Heart is regular rate and rhythm. LUNGS: Clear. HEENT: Her head is normocephalic, atraumatic. She has some blepharospasm on the left to suppress the double images. Her pupils are miotic but reactive. I could not reliably visualize the optic nerves. While motility appeared normal, she had diplopia with left lateral gaze and down gaze. There was no fatigability of eye closure. NEUROLOGIC: There was no neck flexor weakness or fatigue. There was no nasality of speech. Tongue was midline. Gag hyperactive. No jaw fatigue noted. There is full strength. No fatigability of the wrist extensors or deltoids. Lower extremities are full. Reflexes symmetric. Toes downgoing. Iasqze-zc-uzyi and wsom-jf-uokn normal. Intact light touch bilaterally. IMPRESSION: This patient has been medically ill, has recently received chemotherapy treatment for Clostridium difficile with antibiotics, has had poor oral intake and has signs of urinary tract infection. I think these things have resulted in a flare of her myasthenia gravis, although I am not certain all of the weakness is related to the same. PLAN: I would recommend treating the underlying infections, hydrate the patient, improve her nutritional status, switch her back to [place] Timespan 180 b.i.d. as the immediate release 180 has caused some cholinergic symptoms. I would gradually increase her prednisone, she will take 25 today and daily for the next week and then will go up to 30, hoping to minimize any pseudoexacerbation related to steroid use. I would like respiratory to do forced vital capacities twice a day. She does not appear to be in crisis or any distress. I see no current indication for plasma exchange, although that may be an option of pt is failing to improve.We will follow with you. GURVINDER
[2016-11-24] MEDS ORDERED: PERFLUTREN LIPID MICROSPHERE (DEFINITY) IV ONE (11:38)
[2016-11-24] MEDS: CHOLECALCIFEROL 400 INTER.UNIT TAB PO SCH (12:18)
[2016-11-24] MEDS: CALCIUM 600MG + VIT D 400 IU TAB PO SCH (12:19)
[2016-11-24] MEDS: MULTIVITAMIN TAB PO SCH (12:19)
--- NOTE | 2016-11-24 12:56 | ECHOCARDIOGRAM REPORT ---
*NOTICE TO RECEIVING REPUBLICAN AGENCY This information is strictly Confidential and protected under [place] law. [place] law prohibits you from making any further disclosure of this information unless further disclosure is expressly permitted by the written consent of the person to whom it pertains or is authorized by law. A general authorization for the release of medical or other information is not sufficient for this purpose. Hospital accepts no responsibility if the information is made available to any other person, INCLUDING THE PATIENT. Interpretation Summary * Name: TRISTIN STEPHENS Study Date: 11/24/2016 10:58 AM BP: 155/78 mmHg * Patient Location: C.2T\S\E218\S\1 HR: 86 * : 1940 (M/d/yyyy) Gender: Female Height: 68 in * Age: 76 yrs Ethnicity: CA Weight: 131 lb * Ordering Physician: Mariaelena Fofana * Referring Physician: Self, Referred * Performed By: Lisa Soto RDCS * * Reason For Study: CEREBRAL ISCHEMIA/ EMBOLUS * BSA: 1.7 m2 * History: CEREBRAL ISCHEMIA/EMBOLUS * -- Conclusions -- * The study was technically difficult. * A contrast injection of Definity was performed to improve assessment of LV function. * The left ventricle is normal in size. * There is mild concentric left ventricular hypertrophy. * No regional wall motion abnormalities noted. * Left ventricular systolic function is normal. * Ejection Fraction = 60-65%. * Grade I diastolic dysfunction, (abnormal relaxation pattern). * The interatrial septum is intact with no evidence for an atrial septal defect. * Injection of contrast documented no interatrial shunt. Procedure Details * A saline contrast injection was performed to assess for cardiac shunting. * The injection was performed through an intravenous line in the left arm. * The attending nurse who injected the saline contrast was CRISTA SHAHID RN. * A total of 20 cc of agitated saline was given. * A contrast injection of Definity was performed to improve assessment of LV function. * Contrast was injected into an intravenous site in the left arm. * One vial of Definity ultrasound contrast was diluted in normal saline to a total volume of 10 ml. A total of '2' ml of solution was administered during imaging. * Lot # [id number] of Definity utilized for procedure. * Expiration date DEC 04. * The attending nurse who injected the contrast agent was CRISTA SHAHID RN. * A complete two-dimensional transthoracic echocardiogram was performed (2D, M-mode, Doppler and color flow Doppler). * The study was technically difficult. Left Ventricle * The left ventricle is normal in size. * There is mild concentric left ventricular hypertrophy. * Left ventricular systolic function is normal. * Ejection Fraction = 60-65%. * No regional wall motion abnormalities noted. Right Ventricle * The right ventricle is normal in size and function. Atria * The left atrial size is normal. * Right atrial size is normal. * Injection of contrast documented no interatrial shunt. * The interatrial septum is intact with no evidence for an atrial septal defect. Mitral Valve * The mitral valve anatomy is normal. * There is no mitral valve stenosis. * There is trace mitral regurgitation. Tricuspid Valve * The tricuspid valve is not well visualized, but is grossly normal. * There is no tricuspid stenosis. * There is trace tricuspid regurgitation. Aortic Valve * The aortic valve is trileaflet. * No hemodynamically significant valvular aortic stenosis. * No aortic regurgitation is present. Pulmonic Valve * The pulmonic valve is not well visualized. Great Vessels * The aortic root is normal size. Pericardium/Pleural * There is no pericardial effusion. Great Vessels * Normal inferior vena cava diameter and respiratory variation suggests normal central venous pressure. Left Ventricular Diastolic Function * Grade I diastolic dysfunction, (abnormal relaxation pattern). MMode 2D Measurements and Calculations IVSd 1.3 cm IVSs 1.7 cm LVIDd 3.7 cm LVIDs 2.5 cm LVPWd 1.0 cm LVPWs 1.5 cm IVS/LVPW 1.2 FS 32.4 % EDV(Teich) 56.5 ml ESV(Teich) 21.7 ml EF(Teich) 61.6 % EDV(cubed) 48.9 ml ESV(cubed) 15.1 ml EF(cubed) 69.1 % % IVS thick 30.6 % % LVPW thick 44.1 % LV mass(C)d 134.7 grams LV mass(C)dI 78.9 grams/m\S\2 LV mass(C)s 134.0 grams LV mass(C)sI 78.5 grams/m\S\2 SV(Teich) 34.8 ml SI(Teich) 20.4 ml/m\S\2 SV(cubed) 33.8 ml SI(cubed) 19.8 ml/m\S\2 LA dimension 1.8 cm LVAd ap4 25.2 cm\S\2 LVLd ap4 7.8 cm EDV(MOD-sp4) 66.6 ml EDV(sp4-el) 69.3 ml LVAs ap4 14.8 cm\S\2 LVLs ap4 6.8 cm ESV(MOD-sp4) 26.7 ml ESV(sp4-el) 27.3 ml EF(MOD-sp4) 60.0 % EF(sp4-el) 60.6 % LVAd ap2 22.8 cm\S\2 LVLd ap2 7.1 cm EDV(MOD-sp2) 59.6 ml EDV(sp2-el) 62.3 ml LVAs ap2 13.6 cm\S\2 LVLs ap2 6.3 cm ESV(MOD-sp2) 24.4 ml ESV(sp2-el) 24.9 ml EF(MOD-sp2) 59.0 % EF(sp2-el) 60.1 % LVLd %diff -9.31 % EDV(MOD-bp) 66.3 ml LVLs %diff -8.15 % ESV(MOD-bp) 26.6 ml EF(MOD-bp) 59.9 % SV(MOD-sp4) 40.0 ml SI(MOD-sp4) 23.4 ml/m\S\2 SV(MOD-sp2) 35.1 ml SI(MOD-sp2) 20.6 ml/m\S\2 SV(MOD-bp) 39.7 ml SI(MOD-bp) 23.3 ml/m\S\2 SV(sp4-el) 41.9 ml SI(sp4-el) 24.6 ml/m\S\2 SV(sp2-el) 37.4 ml SI(sp2-el) 21.9 ml/m\S\2 Doppler Measurements and Calculations MV E max triny 54.8 cm/sec MV A max triny 73.2 cm/sec MV E/A 0.75 MV dec time 0.27 sec Ao V2 max 95.6 cm/sec Ao max PG 3.7 mmHg Ao max PG (full) 0.54 mmHg LV V1 max PG 3.1 mmHg LV V1 max 88.3 cm/sec
[2016-11-24 13:35] LABS: CKMB/CK RATIO 3.2 (0-3.0)
[2016-11-24] MEDS: METRONIDAZOLE 500 MG TAB PO SCH ×2 (14:32→21:01)
[2016-11-24] MEDS ORDERED: LACTOBACILLUS ACIDOPHILUS (FLORANEX) TAB PO SCH (16:45)
--- NOTE | 2016-11-24 18:43 | Progress Note ---
Internal Med Progress Note Date of Service: Nov 24, 2016. Provider Documentation: SUBJECTIVE: Patient is sitting in her bed in no apparent distress. Still has diplopia. Denies any headache/nausea/vomiting. Denies any chest pain/pressure or SOB. OBJECTIVE: Vital Signs-as noted below Examination: General Appearance: WD/WN, In no apparent distress Head: normocephalic, atraumatic Eyes: normal inspection, PERRL, EOMI, sclerae normal, Prefers to close the left eye for relief of diplopia. ENT: hearing grossly normal, pharynx normal Neck: supple, trachea midline, No JVD. 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 ASSESSMENT & PLAN: 76 yo F presents with weakness, fatigue, double vision on left eye , worse with left lateral gaze her past medical hx includes -Myesthenia Gravis and follows with Neurology Dr Brenner , recurrent c diff , hx of lung CA , bladder CA Diplopia: With blurred vision. No evidence of acute CVA on neuroimaging. Likely due to Myasthenia ? -Neurology evaluation requested -Patient is continued on her out pt meds for Myasthenia gravis Dizzy Spells/Lightheadedness: Likely due to dehydration caused by diarrhea. -Continue IV hydration -MRI /MRA of brain -no acute CVA -Monitoring electrolytes C. Diff Colitis: Last episode in 2015. -Started Flagyl and lactobacillus. Elevated Troponin: No acute cardiac symptoms. -Follow serial Troponin -EKG shows incomplete RBBB with frequent PVC' -Cardiology evaluation if need arises. -Will follow echocardiogram History Myasthenia Gravis: Continue oral Prednisone and Pyridostigmine. New onset of left eye blurred vision No proximal muscle weakness -Neurology eval requested Dysphagia: Patient mentions of difficulty is swallowing food -possibly due to Myasthenia? . Food getting stuck in her throat No evidence of aspiration in Cxray or CT chest -Diet changed to mechanical soft -Aspiration precaution -Speech evaluation requested Hypothyroidism: Continue Levothyroxine -TSH level is normal Code Status: FULL CODE DVT Prophylaxis: Moderate risk. Sq Heparin Disposition: PT/OT eval prior to discharge social service consulted for discharge planning Vital Signs: Date Time Temp Pulse Resp B/P Pulse Ox O2 Delivery O2 Flow Rate FiO2 11/25/16 15:49 36.9 78 16 156/67 93 Room Air 11/25/16 12:00 Room Air 11/25/16 11:20 36.4 77 18 171/68 92 Room Air 11/25/16 08:00 Room Air 11/25/16 07:40 36.6 87 18 130/63 90 Room Air 11/25/16 04:00 Room Air 11/25/16 02:57 36.5 96 18 169/78 92 Room Air 11/25/16 00:19 36.9 92 18 154/66 91 Room Air 11/24/16 23:59 Room Air 11/24/16 20:00 Room Air 11/24/16 19:14 36.5 89 16 162/77 93 Room Air 11/24/16 16:30 Room Air Lab Results: Results Past 24 Hours Test 11/25/16 06:07 11/25/16 14:44 Range/Units White Blood Count 10.04 4.8-10.8 K/uL Red Blood Count 4.33 4.2-5.4 M/uL Hemoglobin 14.3 12.0-16.0 g/dL Hematocrit 43.5 37-47 % Mean Corpuscular Volume 100.5 80-100 fL Mean Corpuscular Hemoglobin 33.0 25-34 pg Mean Corpuscular Hemoglobin Concent 32.9 32-36 g/dl Platelet Count 335 130-400 K/uL Mean Platelet Volume 10.4 7.4-10.4 fL RDW Standard Deviation 51.3 36.4-46.3 fL RDW Coefficient of Variation 13.9 11.5-14.5 % Neutrophils % (Manual) 73.5 % Lymphocytes % (Manual) 13.3 % Monocytes % (Manual) 8.8 % Myelocytes % 4.4 % Neutrophils # (Manual) 7.38 1.4-6.5 K/uL Total Absolute Neutrophils 7.38 1.4-6.5 K/uL Lymphocytes # (Manual) 1.34 1.2-3.4 K/uL Total Absolute Lymphocytes 1.34 1.2-3.4 K/uL Monocytes # (Manual) 0.88 0.11-0.59 K/uL Myelocytes # 0.44 0-0 K/uL Sodium Level 142 136-145 mmol/L Potassium Level 3.7 3.5-5.1 mmol/L Chloride Level 104 98-107 mmol/L Carbon Dioxide Level 30 21-32 mmol/L Anion Gap 8.0 3-11 mmol/L Blood Urea Nitrogen 25 7-18 mg/dl Creatinine 0.98 0.60-1.20 mg/dl Est Creatinine Clear Calc Drug Dose 43.1 ml/min Estimated GFR () 64.0 Estimated GFR (Non- 55.3 BUN/Creatinine Ratio 25.6 10-20 Random Glucose 110 70-99 mg/dl Calcium Level 9.0 8.5-10.1 mg/dl Magnesium Level 2.1 1.8-2.4 mg/dl Troponin I 0.221 0.140 0-0.045 ng/ml
[2016-11-24] MEDS ORDERED: PYRIDOSTIGMINE BROMIDE 180 MG SUSTAINED REL TAB PO SCH (21:00)
[2016-11-25] VITALS (8 sets, daily range): BP systolic 130–171; BP diastolic 63–78; PULSE 77–96; TEMP 36.4–36.9; O2SAT 90–93
[2016-11-25] MEDS ORDERED: PYRIDOSTIGMINE BROMIDE 60 MG TAB PO STA (00:01)
[2016-11-25] MEDS: LEVOTHYROXINE 100 MCG TAB PO SCH (05:43)
[2016-11-25] MEDS: HEPARIN SOD 5000 UNIT/0.5 ML CARP SQ SCH ×3 (05:46→21:17)
[2016-11-25 06:20] LABS: HEMATOCRIT 43.5 % (37-47); MEAN CELL VOLUME 100.5 fL (80-100); MEAN CORPUSCULAR HGB CONC 32.9 g/dl (32-36); MEAN PLATELET VOLUME 10.4 fL (7.4-10.4); PLATELET COUNT 335 K/uL (130-400); RED BLOOD COUNT 4.33 M/uL (4.2-5.4); WHITE BLOOD COUNT 10.04 K/uL (4.8-10.8)
[2016-11-25 06:57] LABS: BUN/CREATININE RATIO 25.6 (10-20); CREATININE 0.98 mg/dl (0.60-1.20); MAGNESIUM 2.1 mg/dl (1.8-2.4); POTASSIUM 3.7 mmol/L (3.5-5.1)
[2016-11-25 07:19] LABS: COMPLETE YES; LYMPH ABS # 1.34 K/uL (1.2-3.4); LYMPHOCYTE % 13.3 %; MYELOCYTE % 4.4 %; NEUTROPHILS % 73.5 %
[2016-11-25] MEDS: LACTOBACILLUS ACIDOPHILUS (FLORANEX) TAB PO SCH ×3 (07:50→17:19)
[2016-11-25] MEDS: METRONIDAZOLE 500 MG TAB PO SCH ×3 (07:50→21:18)
[2016-11-25] MEDS ORDERED: PYRIDOSTIGMINE BROMIDE 60 MG TAB PO ONE (09:28)
[2016-11-25] MEDS: CALCIUM 600MG + VIT D 400 IU TAB PO SCH (11:50)
[2016-11-25] MEDS: MULTIVITAMIN TAB PO SCH (11:50)
[2016-11-25] MEDS: CHOLECALCIFEROL 400 INTER.UNIT TAB PO SCH (11:50)
[2016-11-25] MEDS: VANCOMYCIN HCL 125 MG/2.5ML SOLN PO SCH ×3 (14:41→21:17)
[2016-11-25] MEDS: RASPBERRY SYRUP 5 ML UDP PO SCH ×3 (14:41→21:17)
[2016-11-25] MEDS ORDERED: MSTSR180 (15:14)
--- NOTE | 2016-11-25 16:15 | Progress Note ---
Internal Med Progress Note Date of Service: Nov 25, 2016. Provider Documentation: SUBJECTIVE: Patient is sitting in her bed in no apparent distress. Still has diplopia which is improving.. Denies any headache/nausea/vomiting. Denies any chest pain/pressure or SOB.Still has loose BMs. OBJECTIVE: Vital Signs-as noted below Examination: General Appearance: WD/WN, In no apparent distress Head: normocephalic, atraumatic Eyes: normal inspection, PERRL, EOMI, sclerae normal, Prefers to close the left eye for relief of diplopia. ENT: hearing grossly normal, pharynx normal Neck: supple, trachea midline, No JVD. 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 ASSESSMENT & PLAN: Echocardiogram (11/25/2016) A contrast injection of Definity was performed to improve assessment of LV function. The left ventricle is normal in size. There is mild concentric left ventricular hypertrophy. No regional wall motion abnormalities noted. Left ventricular systolic function is normal. Ejection Fraction = 60-65%. Grade I diastolic dysfunction, (abnormal relaxation pattern). The interatrial septum is intact with no evidence for an atrial septal defect. Injection of contrast documented no interatrial shunt. 76 yo F presents with weakness, fatigue, double vision on left eye , worse with left lateral gaze her past medical hx includes -Myesthenia Gravis and follows with Neurology Dr Brenner , recurrent c diff , hx of lung CA , bladder CA Diplopia: Improving. No evidence of acute CVA on neuroimaging. Likely due to Myasthenia ? -Neurology consult reviewed. Thanks for input. -Patient is continued on her out pt meds for Myasthenia gravis Dizzy Spells/Lightheadedness: Resolving. Likely due to dehydration caused by diarrhea. -Continue IV hydration -MRI /MRA of brain -no acute CVA -Monitoring electrolytes C. Diff Colitis: Last episode in 2015. -Started Flagyl (Day # 2 )and added Oral Vancomycin (Day # 1) -Continue lactobacillus. Elevated Troponin: No acute cardiac symptoms. -Serial Troponin shows 0.220 --> 0.182 --> 0.221 --> 0.140) -EKG shows incomplete RBBB with frequent PVC' -Cardiology evaluation if need arises. -Reviewed the findings of Echocardiogram.No regional wall motion defect. -Will follow echocardiogram History Myasthenia Gravis: Continue oral Prednisone and Pyridostigmine. New onset of left eye blurred vision No proximal muscle weakness -Neurology eval requested Dysphagia: Patient mentions of difficulty is swallowing food -possibly due to Myasthenia? . Food getting stuck in her throat No evidence of aspiration in Cxray or CT chest -Diet changed to mechanical soft -Aspiration precaution -Speech evaluation requested Hypothyroidism: Continue Levothyroxine -TSH level is normal Code Status: FULL CODE DVT Prophylaxis: Moderate risk. Sq Heparin Disposition: PT/OT eval prior to discharge Social service consulted for discharge planning Vital Signs: Date Time Temp Pulse Resp B/P Pulse Ox O2 Delivery O2 Flow Rate FiO2 11/25/16 15:49 36.9 78 16 156/67 93 Room Air 11/25/16 12:00 Room Air 11/25/16 11:20 36.4 77 18 171/68 92 Room Air 11/25/16 08:00 Room Air 11/25/16 07:40 36.6 87 18 130/63 90 Room Air 11/25/16 04:00 Room Air 11/25/16 02:57 36.5 96 18 169/78 92 Room Air 11/25/16 00:19 36.9 92 18 154/66 91 Room Air 11/24/16 23:59 Room Air 11/24/16 20:00 Room Air 11/24/16 19:14 36.5 89 16 162/77 93 Room Air 11/24/16 16:30 Room Air Lab Results: Results Past 24 Hours Test 11/25/16 06:07 11/25/16 14:44 Range/Units White Blood Count 10.04 4.8-10.8 K/uL Red Blood Count 4.33 4.2-5.4 M/uL Hemoglobin 14.3 12.0-16.0 g/dL Hematocrit 43.5 37-47 % Mean Corpuscular Volume 100.5 80-100 fL Mean Corpuscular Hemoglobin 33.0 25-34 pg Mean Corpuscular Hemoglobin Concent 32.9 32-36 g/dl Platelet Count 335 130-400 K/uL Mean Platelet Volume 10.4 7.4-10.4 fL RDW Standard Deviation 51.3 36.4-46.3 fL RDW Coefficient of Variation 13.9 11.5-14.5 % Neutrophils % (Manual) 73.5 % Lymphocytes % (Manual) 13.3 % Monocytes % (Manual) 8.8 % Myelocytes % 4.4 % Neutrophils # (Manual) 7.38 1.4-6.5 K/uL Total Absolute Neutrophils 7.38 1.4-6.5 K/uL Lymphocytes # (Manual) 1.34 1.2-3.4 K/uL Total Absolute Lymphocytes 1.34 1.2-3.4 K/uL Monocytes # (Manual) 0.88 0.11-0.59 K/uL Myelocytes # 0.44 0-0 K/uL Sodium Level 142 136-145 mmol/L Potassium Level 3.7 3.5-5.1 mmol/L Chloride Level 104 98-107 mmol/L Carbon Dioxide Level 30 21-32 mmol/L Anion Gap 8.0 3-11 mmol/L Blood Urea Nitrogen 25 7-18 mg/dl Creatinine 0.98 0.60-1.20 mg/dl Est Creatinine Clear Calc Drug Dose 43.1 ml/min Estimated GFR () 64.0 Estimated GFR (Non- 55.3 BUN/Creatinine Ratio 25.6 10-20 Random Glucose 110 70-99 mg/dl Calcium Level 9.0 8.5-10.1 mg/dl Magnesium Level 2.1 1.8-2.4 mg/dl Troponin I 0.221 0.140 0-0.045 ng/ml
[2016-11-25] MEDS: BOOST GLUCOSE CONTROL PO SCH (17:20)
--- NOTE | 2016-11-25 17:36 | PROGRESS NOTE ---
DATE: 11/25/2016 SUBJECTIVE: I am seeing Mrs. Parrish in followup of myasthenia gravis with a mild flare associated with C. diff enteritis. She feels the same. We had increased her dose of prednisone to 25 yesterday. Her daughter has not yet brought in the Mestinon time span. PHYSICAL EXAMINATION: She is awake and alert. Her extraocular motility appears normal and there is no diplopia on the extremes of gaze. There is no fatigability of eye closure, neck flexor, weakness or extensor. Her tongue is fully strong. She is hypersalivating a little bit likely from the 180 mg of immediate release Mestinon. There is no fatigability of wrist extensors or deltoids. IMPRESSION: Mild flare of myasthenia gravis associated with weight loss, Clostridium difficile colitis. No change at present. If the patient's daughter does not bring in her Mestinon time span we will need to give the patient's 60 mg of immediate release divided over 6 times during the day. If she were to decline on a neuromuscular basis she would need plasma exchange to treat for crisis. GURVINDER
[2016-11-25] MEDS: PYRIDOSTIGMINE BROMIDE 180 MG SUSTAINED REL TAB PO SCH (18:35)
[2016-11-26] VITALS (8 sets, daily range): BP systolic 123–169; BP diastolic 54–73; PULSE 72–88; TEMP 36.3–36.8; O2SAT 90–93
[2016-11-26] MEDS: HEPARIN SOD 5000 UNIT/0.5 ML CARP SQ SCH ×3 (06:00→21:23)
[2016-11-26] MEDS: LEVOTHYROXINE 100 MCG TAB PO SCH (06:39)
[2016-11-26 07:02] LABS: HEMATOCRIT 40.3 % (37-47); MEAN CORPUSCULAR HEMOGLOBIN 34.1 pg (25-34); MEAN CORPUSCULAR HGB CONC 33.7 g/dl (32-36); MEAN PLATELET VOLUME 10.6 fL (7.4-10.4); PLATELET COUNT 290 K/uL (130-400); RED BLOOD COUNT 3.99 M/uL (4.2-5.4); WHITE BLOOD COUNT 7.95 K/uL (4.8-10.8)
[2016-11-26 07:21] LABS: COMPLETE YES; EOSINOPHIL % 0.9 %; LYMPH ABS # 1.21 K/uL (1.2-3.4); LYMPHOCYTE % 15.2 %; META ABS # 0.07 K/uL (0-0); METAMYELOCYTE % 0.9 %; MYELOCYTE % 9.8 %; NEUTROPHILS % 63.4 %
[2016-11-26 07:28] LABS: BUN/CREATININE RATIO 30.7 (10-20); CALCIUM 9.1 mg/dl (8.5-10.1); CREATININE 0.84 mg/dl (0.60-1.20); MAGNESIUM 1.9 mg/dl (1.8-2.4)
[2016-11-26] MEDS: METRONIDAZOLE 500 MG TAB PO SCH ×3 (08:09→21:23)
[2016-11-26] MEDS: BOOST GLUCOSE CONTROL PO SCH ×2 (08:09→17:18)
[2016-11-26] MEDS: LACTOBACILLUS ACIDOPHILUS (FLORANEX) TAB PO SCH ×3 (08:10→17:18)
[2016-11-26] MEDS: PYRIDOSTIGMINE BROMIDE 180 MG SUSTAINED REL TAB PO SCH ×2 (08:11→18:55)
[2016-11-26] MEDS: RASPBERRY SYRUP 5 ML UDP PO SCH ×4 (08:13→21:22)
[2016-11-26] MEDS: VANCOMYCIN HCL 125 MG/2.5ML SOLN PO SCH ×4 (08:13→21:22)
[2016-11-26] MEDS: CHOLECALCIFEROL 400 INTER.UNIT TAB PO SCH (12:00)
[2016-11-26] MEDS: CALCIUM 600MG + VIT D 400 IU TAB PO SCH (12:00)
[2016-11-26] MEDS: MULTIVITAMIN TAB PO SCH (12:00)
--- NOTE | 2016-11-26 12:07 | Progress Note ---
Internal Med Progress Note Date of Service: Nov 26, 2016. Provider Documentation: SUBJECTIVE: Patient is sitting in her bed in no apparent distress. Still has diplopia which is improving.. Denies any headache/nausea/vomiting. Denies any chest pain/pressure or SOB. Diarrhea is better and stools are better formed. OBJECTIVE: Vital Signs-as noted below Examination: General Appearance: WD/WN, In no apparent distress Head: normocephalic, atraumatic Eyes: normal inspection, PERRL, EOMI, sclerae normal, Prefers to close the left eye for relief of diplopia. ENT: hearing grossly normal, pharynx normal Neck: supple, trachea midline, No JVD. Respiratory/Chest: lungs clear B/L, normal breath sounds, no respiratory distress Cardiovascular: regular rate, rhythm, no murmur Abdomen/GI: normal bowel sounds, non tender, soft Extremities/Musculoskeletal: no calf tenderness, no pedal edema Neurologic/Psych: student assistant II-XII nml as tested, no motor/sensory deficits, alert, normal mood/affect, oriented x 3 Skin: normal color, warm/dry Lab data as noted below. ASSESSMENT & PLAN: Echocardiogram (11/24/2016) The study was technically difficult. A contrast injection of Definity was performed to improve assessment of LV function. The left ventricle is normal in size. There is mild concentric left ventricular hypertrophy. No regional wall motion abnormalities noted. Left ventricular systolic function is normal. Ejection Fraction = 60-65%. Grade I diastolic dysfunction, (abnormal relaxation pattern). The interatrial septum is intact with no evidence for an atrial septal defect. Injection of contrast documented no interatrial shunt. 76 yo Female presents with weakness, fatigue, double vision on left eye , worse with left lateral gaze her past medical hx includes -Myesthenia Gravis and follows with Neurology Dr Brenner , recurrent c diff , hx of lung CA , bladder CA Diplopia: With blurred vision. No evidence of acute CVA on neuroimaging. Likely due to Myasthenia ? -Neurology evaluation requested -Patient is continued on her out pt meds for Myasthenia gravis Dizzy Spells/Lightheadedness: Likely due to dehydration caused by diarrhea. -Continue IV hydration -MRI /MRA of brain -no acute CVA -Monitoring electrolytes C. Diff Colitis: Improving. Last episode in 2015. -Continue Vancomycin and lactobacillus. Elevated Troponin: No acute cardiac symptoms.Clinically & hemodynamically stable. -Serial Troponin shows 0.221 --> 0.14 --> 0.189. -EKG shows incomplete RBBB with frequent PVC' -Cardiology evaluation only if need arises and patient is unstable. -Reviewed echocardiogram findings History Myasthenia Gravis: Continue oral Prednisone and Pyridostigmine. New onset of left eye blurred vision No proximal muscle weakness -Neurology consult reviewed. Thanks for input. Dysphagia: Patient mentions of difficulty is swallowing food -possibly due to Myasthenia? . Food getting stuck in her throat No evidence of aspiration in Cxray or CT chest -Diet changed to mechanical soft -Aspiration precaution -Speech evaluation requested Hypothyroidism: Continue Levothyroxine -TSH level is normal Code Status: FULL CODE DVT Prophylaxis: Moderate risk. Sq Heparin Disposition: PT/OT eval prior to discharge social service consulted for discharge planning Vital Signs: Date Time Temp Pulse Resp B/P Pulse Ox O2 Delivery O2 Flow Rate FiO2 11/26/16 10:38 36.3 72 20 129/63 92 Room Air 11/26/16 08:00 Room Air 11/26/16 07:40 36.5 88 20 148/71 93 Room Air 11/26/16 04:00 Room Air 11/26/16 04:00 36.8 85 18 143/73 90 Room Air 11/26/16 00:05 36.4 88 18 158/63 90 Room Air 11/26/16 00:00 Room Air 11/25/16 20:00 91 Room Air 11/25/16 19:52 36.9 84 16 164/72 91 Room Air 11/25/16 16:00 93 Room Air 11/25/16 15:49 36.9 78 16 156/67 93 Room Air Lab Results: Results Past 24 Hours Test 11/25/16 14:44 11/26/16 06:32 Range/Units Troponin I 0.140 0.189 0-0.045 ng/ml White Blood Count 7.95 4.8-10.8 K/uL Red Blood Count 3.99 4.2-5.4 M/uL Hemoglobin 13.6 12.0-16.0 g/dL Hematocrit 40.3 37-47 % Mean Corpuscular Volume 101.0 80-100 fL Mean Corpuscular Hemoglobin 34.1 25-34 pg Mean Corpuscular Hemoglobin Concent 33.7 32-36 g/dl Platelet Count 290 130-400 K/uL Mean Platelet Volume 10.6 7.4-10.4 fL RDW Standard Deviation 51.9 36.4-46.3 fL RDW Coefficient of Variation 14.0 11.5-14.5 % Neutrophils % (Manual) 63.4 % Lymphocytes % (Manual) 15.2 % Monocytes % (Manual) 9.8 % Eosinophils % (Manual) 0.9 % Metamyelocytes % 0.9 % Myelocytes % 9.8 % Neutrophils # (Manual) 5.04 1.4-6.5 K/uL Total Absolute Neutrophils 5.04 1.4-6.5 K/uL Lymphocytes # (Manual) 1.21 1.2-3.4 K/uL Total Absolute Lymphocytes 1.21 1.2-3.4 K/uL Monocytes # (Manual) 0.78 0.11-0.59 K/uL Eosinophils # (Manual) 0.07 0-0.5 K/uL Metamyelocytes # 0.07 0-0 K/uL Myelocytes # 0.78 0-0 K/uL Red Blood Cell Morphology Unremarkable Sodium Level 143 136-145 mmol/L Potassium Level 4.0 3.5-5.1 mmol/L Chloride Level 106 98-107 mmol/L Carbon Dioxide Level 32 21-32 mmol/L Anion Gap 5.0 3-11 mmol/L Blood Urea Nitrogen 26 7-18 mg/dl Creatinine 0.84 0.60-1.20 mg/dl Est Creatinine Clear Calc Drug Dose 47.8 ml/min Estimated GFR () 77.2 Estimated GFR (Non- 66.6 BUN/Creatinine Ratio 30.7 10-20 Random Glucose 106 70-99 mg/dl Calcium Level 9.1 8.5-10.1 mg/dl Magnesium Level 1.9 1.8-2.4 mg/dl
--- NOTE | 2016-11-26 15:39 | Neurology Progress Notes ---
Neurology Progress Note Date of Service Nov 26, 2016. Peri Mcgraw is a 76 year old female who has history of generalized myasthenia gravis. Her symptoms have been mainly ocular bulbar. She was diagnosed in the past year with bladder CA and has a previous history of lung cancer. She was receiving chemotherapy and had 2 additional treatment but was stopped due to the new issues. She had C diff. 3 months ago and finished the course of Flagyl 2 days prior to admission. She has had generalized weakness and a new diplopia on the left gaze with no ptosis. She states this was her initial presentation symptom of her myasthenia when she was first diagnosed. she states the double vision resolves with covering her one eye. Years ago Dr Ivan had her tape her left eye until the double vision resolved. She has been having ongoing swallowing issues and has chocking if not careful with eating which she feels is somewhat worse. She has lost about 30 pound since the bladder cancer diagnosis. At her last office visit her steroids were reduced to 20 mg alternating every other day with 17.5. She hates taking all the steroids but she knows she needs to take them to get better. denies CP, SOB, abdominal pain, increased weakness, headaches,+swallowing issues, diplopia left Objective Date Time Temp Pulse Resp B/P Pulse Ox O2 Delivery O2 Flow Rate FiO2 11/26/16 12:00 Room Air 11/26/16 10:38 36.3 72 20 129/63 92 Room Air 11/26/16 08:00 Room Air 11/26/16 07:40 36.5 88 20 148/71 93 Room Air 11/26/16 04:00 Room Air 11/26/16 04:00 36.8 85 18 143/73 90 Room Air 11/26/16 00:05 36.4 88 18 158/63 90 Room Air 11/26/16 00:00 Room Air 11/25/16 20:00 91 Room Air 11/25/16 19:52 36.9 84 16 164/72 91 Room Air 11/25/16 16:00 93 Room Air 11/25/16 15:49 36.9 78 16 156/67 93 Room Air Last 24 Hours Test 11/26/16 06:32 White Blood Count 7.95 K/uL Red Blood Count 3.99 M/uL Hemoglobin 13.6 g/dL Hematocrit 40.3 % Mean Corpuscular Volume 101.0 fL Mean Corpuscular Hemoglobin 34.1 pg Mean Corpuscular Hemoglobin Concent 33.7 g/dl Platelet Count 290 K/uL Mean Platelet Volume 10.6 fL RDW Standard Deviation 51.9 fL RDW Coefficient of Variation 14.0 % Neutrophils % (Manual) 63.4 % Lymphocytes % (Manual) 15.2 % Monocytes % (Manual) 9.8 % Eosinophils % (Manual) 0.9 % Metamyelocytes % 0.9 % Myelocytes % 9.8 % Neutrophils # (Manual) 5.04 K/uL Total Absolute Neutrophils 5.04 K/uL Lymphocytes # (Manual) 1.21 K/uL Total Absolute Lymphocytes 1.21 K/uL Monocytes # (Manual) 0.78 K/uL Eosinophils # (Manual) 0.07 K/uL Metamyelocytes # 0.07 K/uL Myelocytes # 0.78 K/uL Red Blood Cell Morphology Unremarkable Sodium Level 143 mmol/L Potassium Level 4.0 mmol/L Chloride Level 106 mmol/L Carbon Dioxide Level 32 mmol/L Anion Gap 5.0 mmol/L Blood Urea Nitrogen 26 mg/dl Creatinine 0.84 mg/dl Est Creatinine Clear Calc Drug Dose 47.8 ml/min Estimated GFR () 77.2 Estimated GFR (Non- 66.6 BUN/Creatinine Ratio 30.7 Random Glucose 106 mg/dl Calcium Level 9.1 mg/dl Magnesium Level 1.9 mg/dl Troponin I 0.189 ng/ml Imaging: no new imaging Exam: Physical Exam: Constitutional: appearance pale thin ill appearing Ears, Nose, Mouth and Throat: mucous membranes moist, no injection and skin normal, eyes normal, eye lid stressing with no fatigue Cardiovascular: normal S-1 and S-2 and regular rate and rhythm Respiratory: clear to auscultation (CTA) and no rales, rhonchi or wheeze Musculoskeletal: no peripheral edema and good distal pulses, neck stressing with no fatigue Skin: no stigmata of neurocutaneous disease noted and normal and intact and pupils equal, round and reactive to light (PERRL) left eye medial deviation , with eye covered able to see fingers peripherally NEUROLOGIC EXAMINATION: Mental status: Alert and interactive Oriented to full date and location Oriented to person Speech fluent with no evidence of aphasia Cranial Nerves smile eye brow raise symmetric, tongue midline Reflexes: Deep tendon reflexes were symmetrical and graded 2/5. Plantar responses were flexor. Sensory: intact to light touch and cool touch Coordination: finger to nose without bi pass, no tremor or cogwheeling Gait/Stance: Posture normal. sitting in bedside chair Motor: Negative for pronator drift of out stretched arms with eyes closed. Strength: biceps triceps hand digital imager 5/5 bilaterally no fatigue with deltoid stressing, hip flex plantar flex ext 5/5 bilaterally Current Inpatient Medications Medications (Trade) Dose Ordered Sig/Nga Route Start Time Stop Time Status Last Admin Dose Admin Ioversol (Optiray 320) 100 ml UD PRN IV 11/23/16 19:30 11/27/16 19:29 Heparin Sodium (Porcine) (Heparin Sq 5000 Unit/0.5ml) 5,000 unit Q8 SQ 11/24/16 06:00 12/24/16 05:59 11/26/16 13:31 5,000 UNIT Acetaminophen (Tylenol Tab) 650 mg Q4H PRN PO 11/23/16 22:30 12/23/16 22:29 Al Hydrox/Mg Hydrox/Simethicone (Maalox Max Susp) 15 ml Q4H PRN PO 11/23/16 22:30 12/23/16 22:29 Magnesium Hydroxide (Milk Of Magnesia Susp) 30 ml Q12H PRN PO 11/23/16 22:30 12/23/16 22:29 Ondansetron HCl (Zofran Inj) 4 mg Q6H PRN IV 11/23/16 22:30 12/23/16 22:29 Nitroglycerin (Nitrostat Tab) 0.4 mg UD PRN SL 11/23/16 22:30 12/23/16 22:29 Polyethylene (Miralax Powder Packet) 17 gm DAILY PRN PO 11/23/16 22:30 12/23/16 22:29 Levothyroxine Sodium (Synthroid Tab) 100 mcg DAILYBB PO 11/24/16 06:00 12/24/16 06:59 11/26/16 06:39 100 MCG Ondansetron HCl (Zofran Tab) 8 mg TID PRN PO 11/23/16 22:30 12/23/16 22:29 Prednisone (PredniSONE TAB) 20 mg DAILY PO 11/24/16 09:00 12/24/16 08:59 11/26/16 08:12 20 MG Prochlorperazine Maleate (Compazine Tab) 10 mg Q6H PRN PO 11/23/16 22:30 12/23/16 22:29 Lactobacillus Acidophilus (Floranex Tab) 4 tab TIDM PO 11/24/16 07:30 12/24/16 07:59 11/26/16 12:01 4 TAB Gadobutrol (Gadavist) 6 mmol UD PRN IV 11/24/16 01:30 11/28/16 01:29 Calcium/Vitamin D (Caltrate Plus Tab) 1 tab DAILY@1200 PO 11/24/16 12:00 12/24/16 11:59 11/26/16 12:00 1 TAB Cholecalciferol (Vitamin D Tab) 400 inter.unit DAILY@1200 PO 11/24/16 12:00 12/24/16 11:59 11/26/16 12:00 400 INTER.UNIT Multivitamins (Multivitamin Tab) 1 tab DAILY@1200 PO 11/24/16 12:00 12/24/16 11:59 11/26/16 12:00 1 TAB Prednisone (PredniSONE TAB) 5 mg DAILY PO 11/25/16 09:00 12/25/16 08:59 11/26/16 08:12 5 MG Metronidazole (Flagyl Tab) 500 mg TID PO 11/24/16 14:00 12/08/16 13:59 11/26/16 13:30 500 MG Enteral Nutritional Formula (Boost Glucose Control) 1 can BIDM PO 11/25/16 16:45 12/25/16 16:44 11/26/16 08:09 1 CAN Vancomycin HCl (Vancomycin Oral Soln) 125 mg QID PO 11/25/16 13:00 12/09/16 12:59 11/26/16 13:28 125 MG Raspberry (Raspberry Syrup 5ml Cup) 5 ml QID PO 11/25/16 13:00 12/09/16 12:59 11/26/16 13:27 5 ML Pyridostigmine [place] (Mestinon Timespan Tab) 180 mg BID PO 11/25/16 21:00 12/25/16 20:59 11/26/16 08:11 180 MG Impression 76 year old female s/p acute infection and mild flare of MG Plan 1. treat underlying infection - c diff currently on vancomycin oral 2. Mestinon 180 mg BID extended release home dosing 3. prednisone increase to 25 mg x 1 week then increase to 30 mg until next visit 4. pulmonary -respiratory forced vital capacities 5. hydration and plan for nutritional status with significant weight loss 6. will continue to follow 7. PT/OT/speech for any discharge needs 8. discharge when medically stable I have seen and discussed above patient with Dr Deepthi Carlos, neurology pt stable, still with double vis, but no EOM abnl, no fatig of eye closure, nasality, neck flex weakness.No resp distress. Limbs strong without fatigue. Flare MG assoc with illness, weakness in limb pbly polyfactorial. Next week increase prednisone to 30 mg every day. Discussed use of vancomycin re potential to exacerbate MG, with Dr Callaway. There are not other tx options. Will monitor closely, if acute neurol decline would transfer pt to [facility] for plasma [facility]. Continue to follow FVC which has been stable.MD Liliya
[2016-11-27] VITALS (7 sets, daily range): BP systolic 126–189; BP diastolic 63–87; PULSE 70–89; TEMP 36.5–37; O2SAT 90–99
[2016-11-27] MEDS: LEVOTHYROXINE 100 MCG TAB PO SCH (06:07)
[2016-11-27] MEDS: HEPARIN SOD 5000 UNIT/0.5 ML CARP SQ SCH ×3 (06:08→21:03)
[2016-11-27 06:56] LABS: BUN/CREATININE RATIO 28.1 (10-20); CALCIUM 8.9 mg/dl (8.5-10.1); CREATININE 0.86 mg/dl (0.60-1.20); POTASSIUM 3.9 mmol/L (3.5-5.1)
[2016-11-27] MEDS: METRONIDAZOLE 500 MG TAB PO SCH ×3 (09:21→19:55)
[2016-11-27] MEDS: CHOLECALCIFEROL 400 INTER.UNIT TAB PO SCH (09:21)
[2016-11-27] MEDS: CALCIUM 600MG + VIT D 400 IU TAB PO SCH (09:22)
[2016-11-27] MEDS: LACTOBACILLUS ACIDOPHILUS (FLORANEX) TAB PO SCH ×3 (09:22→16:29)
[2016-11-27] MEDS: PYRIDOSTIGMINE BROMIDE 180 MG SUSTAINED REL TAB PO SCH ×2 (09:23→19:55)
[2016-11-27] MEDS: BOOST GLUCOSE CONTROL PO SCH ×2 (09:24→16:30)
[2016-11-27] MEDS: RASPBERRY SYRUP 5 ML UDP PO SCH ×4 (09:24→19:53)
[2016-11-27] MEDS: VANCOMYCIN HCL 125 MG/2.5ML SOLN PO SCH ×4 (09:35→19:53)
[2016-11-27] MEDS: MULTIVITAMIN TAB PO SCH (12:13)
--- NOTE | 2016-11-27 14:04 | Neurology Progress Notes ---
Neurology Progress Note Date of Service Nov 27, 2016. Peri Mcgraw is a 76 year old female who has history of generalized myasthenia gravis. Her symptoms have been mainly ocular bulbar. She was diagnosed in the past year with bladder CA and has a previous history of lung cancer. She was receiving chemotherapy and had 2 additional treatment but was stopped due to the new issues. She had C diff. 3 months ago and finished the course of Flagyl 2 days prior to admission. She has had generalized weakness and a new diplopia on the left gaze with no ptosis. She states this was her initial presentation symptom of her myasthenia when she was first diagnosed. she states the double vision resolves with covering her one eye. Years ago Dr Ivan had her tape her left eye until the double vision resolved. She has been having ongoing swallowing issues and has chocking if not careful with eating which she feels is somewhat worse. She has lost about 30 pound since the bladder cancer diagnosis. At her last office visit her steroids were reduced to 20 mg alternating every other day with 17.5. She hates taking all the steroids but she knows she needs to take them to get better. She states today she is not feeling as well as she did yesterday. She feels off balance with walking. She thinks it is her eye. denies CP, SOB, abdominal pain, increase swallowing difficulty, falls, bowel or bladder issues Objective Date Time Temp Pulse Resp B/P Pulse Ox O2 Delivery O2 Flow Rate FiO2 11/27/16 10:48 36.7 83 20 146/64 90 Room Air 11/27/16 09:00 36.9 88 20 133/71 91 Room Air 11/27/16 04:03 36.5 79 18 142/63 93 Room Air 11/27/16 04:00 Room Air 11/27/16 00:00 Room Air 11/26/16 23:57 36.6 84 20 147/54 92 Room Air 11/26/16 20:21 36.8 78 16 169/72 91 Room Air 11/26/16 20:00 Room Air 11/26/16 16:45 36.8 79 16 123/55 93 Room Air 11/26/16 16:00 92 Room Air Last 24 Hours Test 11/27/16 06:06 Sodium Level 142 mmol/L Potassium Level 3.9 mmol/L Chloride Level 106 mmol/L Carbon Dioxide Level 32 mmol/L Anion Gap 4.0 mmol/L Blood Urea Nitrogen 24 mg/dl Creatinine 0.86 mg/dl Est Creatinine Clear Calc Drug Dose 46.7 ml/min Estimated GFR () 75.0 Estimated GFR (Non- 64.7 BUN/Creatinine Ratio 28.1 Random Glucose 104 mg/dl Calcium Level 8.9 mg/dl Magnesium Level 2.0 mg/dl Troponin I 0.178 ng/ml Imaging: no new imaging Exam: Physical Exam: Constitutional: appearance pale ill appearing Ears, Nose, Mouth and Throat: mucous membranes moist, no injection and skin normal, eyes normal Cardiovascular: normal S-1 and S-2 and regular rate and rhythm Respiratory: clear to auscultation (CTA) and no rales, ronchi or wheeze Musculoskeletal: no peripheral edema and good distal pulses Skin: no stigmata of neurocutaneous disease noted and normal and intact Eyes: pupils equal, round and reactive to light (PERRL), left eye diplopia NEUROLOGIC EXAMINATION: Mental status: Alert and interactive Oriented to full date and location Oriented to person Speech fluent with no evidence of aphasia Cranial Nerves smile eye brow raise symmetric, tongue midline Coordination: finger to nose without bi pass, bilaterally with one eye closed Gait/Stance: Posture lying in bed Strength: biceps triceps, hand recycling assistant 5/5 bilaterally, hip flex 5/5 bilaterally Current Inpatient Medications Medications (Trade) Dose Ordered Sig/Nga Route Start Time Stop Time Status Last Admin Dose Admin Ioversol (Optiray 320) 100 ml UD PRN IV 11/23/16 19:30 11/27/16 19:29 Heparin Sodium (Porcine) (Heparin Sq 5000 Unit/0.5ml) 5,000 unit Q8 SQ 11/24/16 06:00 12/24/16 05:59 11/27/16 06:08 5,000 UNIT Acetaminophen (Tylenol Tab) 650 mg Q4H PRN PO 11/23/16 22:30 12/23/16 22:29 Al Hydrox/Mg Hydrox/Simethicone (Maalox Max Susp) 15 ml Q4H PRN PO 11/23/16 22:30 12/23/16 22:29 Magnesium Hydroxide (Milk Of Magnesia Susp) 30 ml Q12H PRN PO 11/23/16 22:30 12/23/16 22:29 Ondansetron HCl (Zofran Inj) 4 mg Q6H PRN IV 11/23/16 22:30 12/23/16 22:29 Nitroglycerin (Nitrostat Tab) 0.4 mg UD PRN SL 11/23/16 22:30 12/23/16 22:29 Polyethylene (Miralax Powder Packet) 17 gm DAILY PRN PO 11/23/16 22:30 12/23/16 22:29 Levothyroxine Sodium (Synthroid Tab) 100 mcg DAILYBB PO 11/24/16 06:00 12/24/16 06:59 11/27/16 06:07 100 MCG Ondansetron HCl (Zofran Tab) 8 mg TID PRN PO 11/23/16 22:30 12/23/16 22:29 Prednisone (PredniSONE TAB) 20 mg DAILY PO 11/24/16 09:00 12/24/16 08:59 11/27/16 09:21 20 MG Prochlorperazine Maleate (Compazine Tab) 10 mg Q6H PRN PO 11/23/16 22:30 12/23/16 22:29 Lactobacillus Acidophilus (Floranex Tab) 4 tab TIDM PO 11/24/16 07:30 12/24/16 07:59 11/27/16 12:14 4 TAB Gadobutrol (Gadavist) 6 mmol UD PRN IV 11/24/16 01:30 11/28/16 01:29 Calcium/Vitamin D (Caltrate Plus Tab) 1 tab DAILY@1200 PO 11/24/16 12:00 12/24/16 11:59 11/27/16 09:22 1 TAB Cholecalciferol (Vitamin D Tab) 400 inter.unit DAILY@1200 PO 11/24/16 12:00 12/24/16 11:59 11/27/16 09:21 400 INTER.UNIT Multivitamins (Multivitamin Tab) 1 tab DAILY@1200 PO 11/24/16 12:00 12/24/16 11:59 11/27/16 12:13 1 TAB Prednisone (PredniSONE TAB) 5 mg DAILY PO 11/25/16 09:00 12/25/16 08:59 11/27/16 09:21 5 MG Metronidazole (Flagyl Tab) 500 mg TID PO 11/24/16 14:00 12/08/16 13:59 11/27/16 09:21 500 MG Enteral Nutritional Formula (Boost Glucose Control) 1 can BIDM PO 11/25/16 16:45 12/25/16 16:44 11/27/16 09:24 1 CAN Vancomycin HCl (Vancomycin Oral Soln) 125 mg QID PO 11/25/16 13:00 12/09/16 12:59 11/27/16 09:35 125 MG Raspberry (Raspberry Syrup 5ml Cup) 5 ml QID PO 11/25/16 13:00 12/09/16 12:59 11/27/16 09:24 5 ML Pyridostigmine [place] (Mestinon Timespan Tab) 180 mg BID PO 11/25/16 21:00 12/25/16 20:59 11/27/16 09:23 180 MG Impression 76 year old female s/p acute infection and mild flare of MG Plan 1. treat underlying infection - c diff currently on vancomycin oral 2. Mestinon 180 mg BID extended release home dosing 3. prednisone increase to 25 mg x 1 week then increase to 30 mg until next visit 4. pulmonary -respiratory forced vital capacities 5. hydration and plan for nutritional status with significant weight loss 6. will continue to follow 7. PT/OT/speech for any discharge needs 8. patch eye can rotate R/L every 2 hours. I have seen and discussed above patient with Dr Deepthi Carlos, neurology Pt seen and examined, diplopia on l lat gaze, no fatigue of eom, eye closure, neck flex, deltoid, finger ext. mild stable nasality of speech, no resp distress. No evidence of worsening mg with vanco use. Pt has complaints of mild lightheadedness with standing, will check orthostatics. BILL Carlos MD
--- NOTE | 2016-11-27 20:36 | Progress Note ---
Medicine Progress Note Date & Time of Visit: Nov 27, 2016 at 20:31. Subjective patient seen resting in bed, comfortable states diplopia is about the same,no new weakness/numbness diarrhea improving, no abdominal pain denies other symptoms Objective Last 8 Hrs Date Time Temp Pulse Resp B/P Pulse Ox O2 Delivery O2 Flow Rate FiO2 11/27/16 20:12 36.6 78 16 161/87 91 Room Air 11/27/16 16:00 Room Air 11/27/16 15:56 36.9 70 20 130/65 90 Physical Exam: General- oriented x 3, not in distress, speaks in sentences with no effort Eyes- EOMI, anicteric Neck- supple, no JVD Lungs- clear to auscultation bilaterally Heart- normal rate, regular rhythm; no murmurs Abdomen- normal bowel sounds, soft, nontender Extremities- no pretibial edema, no calf tenderness; peripheral pulses intact nephrostomy tube in place Neuro- alert, oriented x 3; no gross deficits Skin- warm & dry Laboratory Results: Last 24 Hours Test 11/27/16 06:06 Sodium Level 142 mmol/L Potassium Level 3.9 mmol/L Chloride Level 106 mmol/L Carbon Dioxide Level 32 mmol/L Anion Gap 4.0 mmol/L Blood Urea Nitrogen 24 mg/dl Creatinine 0.86 mg/dl Est Creatinine Clear Calc Drug Dose 46.7 ml/min Estimated GFR () 75.0 Estimated GFR (Non- 64.7 BUN/Creatinine Ratio 28.1 Random Glucose 104 mg/dl Calcium Level 8.9 mg/dl Magnesium Level 2.0 mg/dl Troponin I 0.178 ng/ml Assessment & Plan Diplopia: With blurred vision. 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 stable -Serial Troponin shows 0.221 --> 0.14 --> 0.189. -EKG shows incomplete RBBB with frequent PVC' - echo Dysphagia: No evidence of aspiration in Cxray or CT chest -Diet changed to mechanical soft -Aspiration precaution -Speech evaluation recommend mechanical soft diet Hypothyroidism: Continue Levothyroxine -TSH level is normal Code Status: FULL CODE DVT Prophylaxis: Moderate risk. Sq Heparin Disposition: possible d/c tomorrow if cleared by Neurology Current Inpatient Medications: Current Inpatient Medications Medications (Trade) Dose Ordered Sig/Nga Route Start Time Stop Time Status Last Admin Dose Admin Heparin Sodium (Porcine) (Heparin Sq 5000 Unit/0.5ml) 5,000 unit Q8 SQ 11/24/16 06:00 12/24/16 05:59 11/27/16 14:49 5,000 UNIT Acetaminophen (Tylenol Tab) 650 mg Q4H PRN PO 11/23/16 22:30 12/23/16 22:29 Al Hydrox/Mg Hydrox/Simethicone (Maalox Max Susp) 15 ml Q4H PRN PO 11/23/16 22:30 12/23/16 22:29 Magnesium Hydroxide (Milk Of Magnesia Susp) 30 ml Q12H PRN PO 11/23/16 22:30 12/23/16 22:29 Ondansetron HCl (Zofran Inj) 4 mg Q6H PRN IV 11/23/16 22:30 12/23/16 22:29 Nitroglycerin (Nitrostat Tab) 0.4 mg UD PRN SL 11/23/16 22:30 12/23/16 22:29 Polyethylene (Miralax Powder Packet) 17 gm DAILY PRN PO 11/23/16 22:30 12/23/16 22:29 Levothyroxine Sodium (Synthroid Tab) 100 mcg DAILYBB PO 11/24/16 06:00 12/24/16 06:59 11/27/16 06:07 100 MCG Ondansetron HCl (Zofran Tab) 8 mg TID PRN PO 11/23/16 22:30 12/23/16 22:29 Prednisone (PredniSONE TAB) 20 mg DAILY PO 11/24/16 09:00 12/24/16 08:59 11/27/16 09:21 20 MG Prochlorperazine Maleate (Compazine Tab) 10 mg Q6H PRN PO 11/23/16 22:30 12/23/16 22:29 Lactobacillus Acidophilus (Floranex Tab) 4 tab TIDM PO 11/24/16 07:30 12/24/16 07:59 11/27/16 16:29 4 TAB Gadobutrol (Gadavist) 6 mmol UD PRN IV 11/24/16 01:30 11/28/16 01:29 Calcium/Vitamin D (Caltrate Plus Tab) 1 tab DAILY@1200 PO 11/24/16 12:00 12/24/16 11:59 11/27/16 09:22 1 TAB Cholecalciferol (Vitamin D Tab) 400 inter.unit DAILY@1200 PO 11/24/16 12:00 12/24/16 11:59 11/27/16 09:21 400 INTER.UNIT Multivitamins (Multivitamin Tab) 1 tab DAILY@1200 PO 11/24/16 12:00 12/24/16 11:59 11/27/16 12:13 1 TAB Prednisone (PredniSONE TAB) 5 mg DAILY PO 11/25/16 09:00 12/25/16 08:59 11/27/16 09:21 5 MG Enteral Nutritional Formula (Boost Glucose Control) 1 can BIDM PO 11/25/16 16:45 12/25/16 16:44 11/27/16 16:30 1 CAN Vancomycin HCl (Vancomycin Oral Soln) 125 mg QID PO 11/25/16 13:00 12/09/16 12:59 11/27/16 19:53 125 MG Raspberry (Raspberry Syrup 5ml Cup) 5 ml QID PO 11/25/16 13:00 12/09/16 12:59 11/27/16 19:53 5 ML Pyridostigmine [place] (Mestinon Timespan Tab) 180 mg BID PO 11/25/16 21:00 12/25/16 20:59 11/27/16 19:55 180 MG
[2016-11-28] VITALS (12 sets, daily range): BP systolic 112–189; BP diastolic 57–74; PULSE 73–92; TEMP 36.4–36.9; O2SAT 72–100
[2016-11-28] MEDS: LEVOTHYROXINE 100 MCG TAB PO SCH (05:59)
[2016-11-28] MEDS: HEPARIN SOD 5000 UNIT/0.5 ML CARP SQ SCH ×3 (06:04→21:19)
[2016-11-28] MEDS: BOOST GLUCOSE CONTROL PO SCH ×2 (07:30→16:19)
[2016-11-28] MEDS: VANCOMYCIN HCL 125 MG/2.5ML SOLN PO SCH ×4 (08:14→21:16)
[2016-11-28] MEDS: LACTOBACILLUS ACIDOPHILUS (FLORANEX) TAB PO SCH ×3 (08:14→16:19)
[2016-11-28] MEDS: PYRIDOSTIGMINE BROMIDE 180 MG SUSTAINED REL TAB PO SCH ×2 (08:15→21:16)
[2016-11-28] MEDS: RASPBERRY SYRUP 5 ML UDP PO SCH ×4 (08:15→21:15)
[2016-11-28] MEDS: CALCIUM 600MG + VIT D 400 IU TAB PO SCH (11:52)
[2016-11-28] MEDS: MULTIVITAMIN TAB PO SCH (11:52)
[2016-11-28] MEDS: CHOLECALCIFEROL 400 INTER.UNIT TAB PO SCH (11:52)
[2016-11-28] MEDS ORDERED: NURSING VERBAL MED ORDER ONE (13:15)
[2016-11-28] MEDS ORDERED: LEVALBUTEROL/IPRATROPIUM NEB INH SCH (13:30)
--- NOTE | 2016-11-28 13:35 | Progress Note ---
Medicine Progress Note Date & Time of Visit: Nov 28, 2016 at 13:29. Subjective patient reported not feeling well to RN O2 sats showed 72% on room air, placed on 4 liters by nasal cannula, O2 sats 97% on exam, patient states she just feels weak breathing improved with oxygen by nasal cannula denies chest pain, nausea, dizziness, palpitations denies abdominal pain; stools more formed, and BMs less frequent no other symptoms Objective Last 8 Hrs Date Time Temp Pulse Resp B/P Pulse Ox O2 Delivery O2 Flow Rate FiO2 11/28/16 13:05 92 Nasal Cannula 4.0 11/28/16 13:04 36.8 88 24 189/69 72 Room Air 11/28/16 12:00 Nasal Cannula 2.0 11/28/16 11:15 36.8 81 20 165/71 94 Nasal Cannula 2.0 177/74 11/28/16 11:11 36.7 90 20 135/64 90 11/28/16 08:48 36.7 92 20 137/61 90 Room Air 11/28/16 08:00 Room Air 11/28/16 07:50 36.9 76 20 124/71 90 Room Air Physical Exam: General- oriented x 3, not in distress, speaks in sentences with no effort Eyes- EOMI, anicteric Neck- supple, no JVD Lungs- clear to auscultation bilaterally Heart- normal rate, regular rhythm; no murmurs Abdomen- normal bowel sounds, soft, nontender Extremities- no pretibial edema, no calf tenderness; peripheral pulses intact nephrostomy tube in place Neuro- alert, oriented x 3; no gross deficits Skin- warm & dry Laboratory Results: Last 24 Hours Test 11/28/16 13:28 Assessment & Plan Acute Hypoxic Respiratory failure History of Smoking - noted in the afternoon today 11/28/16 - was 72% on room air earlier, placed on nasal cannula improved to 99% on 2 liters nasal cannula patient not in distress, speaks in sentences with no effort - STAT CXR: no signs of pneumonia VC this AM 1L - discussed with Neurology patient may be having progression of MG Exacerbation recommend transfer to [facility] for possible plasma exchange - discussed with patient and she is agreeable with the plan discussed with Dr. Jiménez - [facility] Neurologist, and she kindly accepted the patient Leukocytosis WBC increased to 13k today from 7k afebrile (+) foul smelling urine urinalysis and urine culture pending has nephrostomy tube in place monitor Diplopia chief complain on admission 11/21/16 -MRI /MRA of brain -no acute CVA - Likely due to mild MG flare - Prednisone increased to 25mg po daily from 20mg Mestinon continued - diplopia about the same as per patient Dizzy Spells/Lightheadedness - Likely due to dehydration caused by diarrhea - resolved C. 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 -EKG shows incomplete RBBB with frequent PVC - Echo; -- Conclusions -- * The study was technically difficult. * A contrast injection of Definity was performed to improve assessment of LV function. * The left ventricle is normal in size. * There is mild concentric left ventricular hypertrophy. * No regional wall motion abnormalities noted. * Left ventricular systolic function is normal. * Ejection Fraction = 60-65%. * Grade I diastolic dysfunction, (abnormal relaxation pattern). * The interatrial septum is intact with no evidence for an atrial septal defect. * Injection of contrast documented no interatrial shunt. Dysphagia -Speech evaluation recommend mechanical soft diet -Aspiration precaution Hypothyroidism: Continue Levothyroxine -TSH level is normal Code Status: FULL CODE DVT Prophylaxis: Moderate risk. Sq Heparin given Disposition: transfer to [facility] today Current Inpatient Medications: Current Inpatient Medications Medications (Trade) Dose Ordered Sig/Nga Route Start Time Stop Time Status Last Admin Dose Admin Heparin Sodium (Porcine) (Heparin Sq 5000 Unit/0.5ml) 5,000 unit Q8 SQ 11/24/16 06:00 12/24/16 05:59 11/28/16 06:04 5,000 UNIT Acetaminophen (Tylenol Tab) 650 mg Q4H PRN PO 11/23/16 22:30 12/23/16 22:29 11/28/16 10:19 650 MG Al Hydrox/Mg Hydrox/Simethicone (Maalox Max Susp) 15 ml Q4H PRN PO 11/23/16 22:30 12/23/16 22:29 Magnesium Hydroxide (Milk Of Magnesia Susp) 30 ml Q12H PRN PO 11/23/16 22:30 12/23/16 22:29 Ondansetron HCl (Zofran Inj) 4 mg Q6H PRN IV 11/23/16 22:30 12/23/16 22:29 Nitroglycerin (Nitrostat Tab) 0.4 mg UD PRN SL 11/23/16 22:30 12/23/16 22:29 Polyethylene (Miralax Powder Packet) 17 gm DAILY PRN PO 11/23/16 22:30 12/23/16 22:29 Levothyroxine Sodium (Synthroid Tab) 100 mcg DAILYBB PO 11/24/16 06:00 12/24/16 06:59 11/28/16 05:59 100 MCG Ondansetron HCl (Zofran Tab) 8 mg TID PRN PO 11/23/16 22:30 12/23/16 22:29 Prednisone (PredniSONE TAB) 20 mg DAILY PO 11/24/16 09:00 12/24/16 08:59 11/28/16 08:14 20 MG Prochlorperazine Maleate (Compazine Tab) 10 mg Q6H PRN PO 11/23/16 22:30 12/23/16 22:29 Lactobacillus Acidophilus (Floranex Tab) 4 tab TIDM PO 11/24/16 07:30 12/24/16 07:59 11/28/16 11:53 4 TAB Calcium/Vitamin D (Caltrate Plus Tab) 1 tab DAILY@1200 PO 11/24/16 12:00 12/24/16 11:59 11/28/16 11:52 1 TAB Cholecalciferol (Vitamin D Tab) 400 inter.unit DAILY@1200 PO 11/24/16 12:00 12/24/16 11:59 11/28/16 11:52 400 INTER.UNIT Multivitamins (Multivitamin Tab) 1 tab DAILY@1200 PO 11/24/16 12:00 12/24/16 11:59 11/28/16 11:52 1 TAB Prednisone (PredniSONE TAB) 5 mg DAILY PO 11/25/16 09:00 12/25/16 08:59 11/28/16 08:14 5 MG Enteral Nutritional Formula (Boost Glucose Control) 1 can BIDM PO 11/25/16 16:45 12/25/16 16:44 11/28/16 07:30 1 CAN Vancomycin HCl (Vancomycin Oral Soln) 125 mg QID PO 11/25/16 13:00 12/09/16 12:59 11/28/16 11:51 125 MG Raspberry (Raspberry Syrup 5ml Cup) 5 ml QID PO 11/25/16 13:00 12/09/16 12:59 11/28/16 11:51 5 ML Pyridostigmine [place] (Mestinon Timespan Tab) 180 mg BID PO 11/25/16 21:00 12/25/16 20:59 11/28/16 08:15 180 MG Miscellaneous Information (Nursing Verbal Med Order) 1 ea ONE ONCE N/A 11/28/16 13:15 11/28/16 13:16 UNV Miscellaneous (Xopenex/ Atrovent Neb) 1 ea Q4H INH 11/28/16 13:30 12/28/16 13:29 UNV
[2016-11-28] MEDS ORDERED: CLONIDINE HCL 0.1 MG TAB PO ONE (13:45)
[2016-11-28 14:02] LABS: HEMATOCRIT 40.9 % (37-47); MEAN CELL VOLUME 102.3 fL (80-100); MEAN CORPUSCULAR HEMOGLOBIN 34.3 pg (25-34); MEAN PLATELET VOLUME 10.5 fL (7.4-10.4); PLATELET COUNT 282 K/uL (130-400); WHITE BLOOD COUNT 13.41 K/uL (4.8-10.8)
--- NOTE | 2016-11-28 14:10 | DIAGNOSTIC IMAGING REPORT ---
SINGLE VIEW CHEST CLINICAL HISTORY: Dyspnea. FINDINGS: An AP, portable, upright chest radiograph is compared to chest x-ray and chest CT dated 11/23/2016. The cardiomediastinal silhouette is unremarkable. There is atherosclerotic calcification of the thoracic aorta. Advanced emphysema and chronic interstitial thickening are similar to previous. Masslike opacities in the upper lobes are similar to previous. No large pleural effusion is identified and no Pneumothorax is seen. The skeletal structures are osteopenic. The bony thorax is grossly intact. Calcific tendinopathy is noted in the left shoulder. A catheter is present in the left upper quadrant of the abdomen. IMPRESSION: 1. Advanced emphysema and no significant change from 11/23/2016. 2. Again seen are masslike upper lobe opacities. Neoplasm remains the diagnosis of exclusion. Electronically signed by: Sang Mccarthy M.D. 11/28/2016 2:08 PM Dictated Date/Time: 11/28/2016 2:06 PM
[2016-11-28 14:21] LABS: BUN/CREATININE RATIO 33.3 (10-20); CALCIUM 9.1 mg/dl (8.5-10.1); CREATININE 0.88 mg/dl (0.60-1.20); POTASSIUM 4.6 mmol/L (3.5-5.1)
[2016-11-28 14:32] LABS: MEAN CORPUSCULAR HGB CONC 33.5 g/dl (32-36)
[2016-11-28 15:05] LABS: COMPLETE YES; LYMPH ABS # 0.54 K/uL (1.2-3.4)
--- NOTE | 2016-11-28 15:40 | Neurology Progress Notes ---
Neurology Progress Note Date of Service Nov 28, 2016. Peri Mcgraw is a 76 year old female who has history of generalized myasthenia gravis. Her symptoms have been mainly ocular bulbar. She was diagnosed in the past year with bladder CA and has a previous history of lung cancer. She was receiving chemotherapy and had 2 additional treatment but was stopped due to the new issues. She had C diff. 3 months ago and finished the course of Flagyl 2 days prior to admission. She has had generalized weakness and a new diplopia on the left gaze with no ptosis. She states this was her initial presentation symptom of her myasthenia when she was first diagnosed. she states the double vision resolves with covering her one eye. Years ago Dr Ivan had her tape her left eye until the double vision resolved. She has been having ongoing swallowing issues and has chocking if not careful with eating which she feels is somewhat worse. She has lost about 30 pound since the bladder cancer diagnosis. At her last office visit her steroids were reduced to 20 mg alternating every other day with 17.5. She hates taking all the steroids but she knows she needs to take them to get better. She states she is feeling very weak today. Nursing states her PFC have been lower today she is only at 700-900 and she is now on 4L NC. Nursing states the O2 was started last night at 1L but increase when her O2 dropped. denies CP, SOB, abdominal pain, increase swallowing difficulty, falls, bowel or bladder issues Objective Date Time Temp Pulse Resp B/P Pulse Ox O2 Delivery O2 Flow Rate FiO2 11/28/16 13:05 92 Nasal Cannula 4.0 11/28/16 13:04 36.8 88 24 189/69 72 Room Air 11/28/16 12:00 Nasal Cannula 2.0 11/28/16 11:15 36.8 81 20 165/71 94 Nasal Cannula 2.0 177/74 11/28/16 11:11 36.7 90 20 135/64 90 11/28/16 08:48 36.7 92 20 137/61 90 Room Air 11/28/16 08:00 Room Air 11/28/16 07:50 36.9 76 20 124/71 90 Room Air 11/28/16 04:00 Room Air 11/28/16 03:51 36.5 73 18 122/66 92 Room Air 11/28/16 00:00 Room Air 11/27/16 23:58 36.6 75 20 133/64 92 Room Air 11/27/16 21:36 89 126/66 11/27/16 21:36 85 189/63 11/27/16 21:36 81 157/75 11/27/16 20:12 36.6 78 16 161/87 91 Room Air 11/27/16 20:00 Room Air 11/27/16 16:00 Room Air 11/27/16 15:56 36.9 70 20 130/65 90 Last 24 Hours Test 11/28/16 13:50 White Blood Count 13.41 K/uL Red Blood Count 4.00 M/uL Hemoglobin 13.7 g/dL Hematocrit 40.9 % Mean Corpuscular Volume 102.3 fL Mean Corpuscular Hemoglobin 34.3 pg Mean Corpuscular Hemoglobin Concent 33.5 g/dl Platelet Count 282 K/uL Mean Platelet Volume 10.5 fL RDW Standard Deviation 52.3 fL RDW Coefficient of Variation 14.0 % Neutrophils % (Manual) 85.0 % Lymphocytes % (Manual) 4.0 % Monocytes % (Manual) 3.0 % Metamyelocytes % 6.0 % Myelocytes % 2.0 % Neutrophils # (Manual) 11.40 K/uL Total Absolute Neutrophils 11.40 K/uL Lymphocytes # (Manual) 0.54 K/uL Total Absolute Lymphocytes 0.54 K/uL Monocytes # (Manual) 0.40 K/uL Metamyelocytes # 0.80 K/uL Myelocytes # 0.27 K/uL Sodium Level 141 mmol/L Potassium Level 4.6 mmol/L Chloride Level 104 mmol/L Carbon Dioxide Level 36 mmol/L Anion Gap 1.0 mmol/L Blood Urea Nitrogen 29 mg/dl Creatinine 0.88 mg/dl Est Creatinine Clear Calc Drug Dose 45.7 ml/min Estimated GFR () 72.9 Estimated GFR (Non- 62.9 BUN/Creatinine Ratio 33.3 Random Glucose 264 mg/dl Calcium Level 9.1 mg/dl Imaging: CXR- . Advanced emphysema and no significant change from 11/23/2016. Again seen are masslike upper lobe opacities. Neoplasm remains the diagnosis of exclusion. Exam: Physical Exam: Constitutional: appearance nourished, healthy and normal Ears, Nose, Mouth and Throat: mucous membranes moist, no injection and skin normal, eyes normal Cardiovascular: normal S-1 and S-2 and regular rate and rhythm Respiratory: shallow breath sounds Musculoskeletal: no peripheral edema and good distal pulses Skin: no stigmata of neurocutaneous disease noted and normal and intact Eyes: left eye diplopia and pupils equal, round and reactive to light (PERRL) NEUROLOGIC EXAMINATION: Mental status: Alert and interactive Oriented to full date and location Oriented to person Speech fluent with no evidence of aphasia Cranial Nerves smile eye brow raise symmetric Coordination: Romberg absent Gait/Stance: lying in bed Motor: Negative for pronator drift of out stretched arms with eyes closed. Strength: biceps triceps hand metal tester 5/5 bilaterally, stressing eye lid with no fatigue, jaw stress with no fatigue Current Inpatient Medications Medications (Trade) Dose Ordered Sig/Nga Route Start Time Stop Time Status Last Admin Dose Admin Heparin Sodium (Porcine) (Heparin Sq 5000 Unit/0.5ml) 5,000 unit Q8 SQ 11/24/16 06:00 12/24/16 05:59 11/28/16 14:28 5,000 UNIT Acetaminophen (Tylenol Tab) 650 mg Q4H PRN PO 11/23/16 22:30 12/23/16 22:29 11/28/16 10:19 650 MG Al Hydrox/Mg Hydrox/Simethicone (Maalox Max Susp) 15 ml Q4H PRN PO 11/23/16 22:30 12/23/16 22:29 Magnesium Hydroxide (Milk Of Magnesia Susp) 30 ml Q12H PRN PO 11/23/16 22:30 12/23/16 22:29 Ondansetron HCl (Zofran Inj) 4 mg Q6H PRN IV 11/23/16 22:30 12/23/16 22:29 Nitroglycerin (Nitrostat Tab) 0.4 mg UD PRN SL 11/23/16 22:30 12/23/16 22:29 Polyethylene (Miralax Powder Packet) 17 gm DAILY PRN PO 11/23/16 22:30 12/23/16 22:29 Levothyroxine Sodium (Synthroid Tab) 100 mcg DAILYBB PO 11/24/16 06:00 12/24/16 06:59 11/28/16 05:59 100 MCG Ondansetron HCl (Zofran Tab) 8 mg TID PRN PO 11/23/16 22:30 12/23/16 22:29 Prednisone (PredniSONE TAB) 20 mg DAILY PO 11/24/16 09:00 12/24/16 08:59 11/28/16 08:14 20 MG Prochlorperazine Maleate (Compazine Tab) 10 mg Q6H PRN PO 11/23/16 22:30 12/23/16 22:29 Lactobacillus Acidophilus (Floranex Tab) 4 tab TIDM PO 11/24/16 07:30 12/24/16 07:59 11/28/16 11:53 4 TAB Calcium/Vitamin D (Caltrate Plus Tab) 1 tab DAILY@1200 PO 11/24/16 12:00 12/24/16 11:59 11/28/16 11:52 1 TAB Cholecalciferol (Vitamin D Tab) 400 inter.unit DAILY@1200 PO 11/24/16 12:00 12/24/16 11:59 11/28/16 11:52 400 INTER.UNIT Multivitamins (Multivitamin Tab) 1 tab DAILY@1200 PO 11/24/16 12:00 12/24/16 11:59 11/28/16 11:52 1 TAB Prednisone (PredniSONE TAB) 5 mg DAILY PO 11/25/16 09:00 12/25/16 08:59 11/28/16 08:14 5 MG Enteral Nutritional Formula (Boost Glucose Control) 1 can BIDM PO 11/25/16 16:45 12/25/16 16:44 11/28/16 07:30 1 CAN Vancomycin HCl (Vancomycin Oral Soln) 125 mg QID PO 11/25/16 13:00 12/09/16 12:59 11/28/16 11:51 125 MG Raspberry (Raspberry Syrup 5ml Cup) 5 ml QID PO 11/25/16 13:00 12/09/16 12:59 11/28/16 11:51 5 ML Pyridostigmine [place] (Mestinon Timespan Tab) 180 mg BID PO 11/25/16 21:00 12/25/16 20:59 11/28/16 08:15 180 MG Ipratropium [place] (Atrovent 0.02% 0.5MG/2.5ML Neb) 0.5 mg Q4R INH 11/28/16 16:00 12/28/16 15:59 Levalbuterol (Xopenex 1.25MG/ 0.5ML Neb) 1.25 mg Q4R INH 11/28/16 16:00 12/28/16 15:59 Impression 76 year old female s/p acute infection and mild flare of MG Plan 1. treat underlying infection - c diff currently on vancomycin oral 2. Mestinon 180 mg BID extended release home dosing 3. prednisone increase to 25 mg x 1 week then increase to 30 mg until next visit 4. pulmonary -respiratory forced vital capacities 5. hydration and plan for nutritional status with significant weight loss 6. patient O2 saturation is decreased and FVC decreased 7. PT/OT/speech for any discharge needs 8. patch eye can rotate R/L every 2 hours. 9. pursuing infectious cause and if none found will likely need transferred for plasma exchange treatment at [place] 10. called patients daughter to let her know we are planning on sending her to [place] for Plasma exchange due to exacerbation of MG. She appears to be getting weaker and now having some O2 saturation issues. all questions answered. She states she will be out of town tomorrow and wanted her cell phone to be added to her record. [phone] ([place]) I have seen and discussed above patient with Dr Deepthi Carlos, neurology Pt seen and examined, hypoxic earlier in day without change in cxr. Pt using accessory mm respirations. There is no obvious EOM palsies although pt co diplopia on left lateral gaze. NO fatigueability with eye closure. Mild weakness of neck flexors.Mild nasality of speech. Imp MG with flare associated with medical illness/c diff, wt loss, cancer, chemotx. Have increased prednisone from 20 mg daily to 25 mg daily. Pt is weaker today having had started VAnco 2 d ago. using access muscle use. Rec xfer to [place] for PLEX. Pt is not a good candidate for additional immunotherapy given her active use of chemotherapy. BILL Carlos MD
[2016-11-28] MEDS ORDERED: IPRATROPIUM BROMIDE NEB SOLN 0.02% 2.5 ML VIAL INH SCH (16:00)
[2016-11-28] MEDS ORDERED: LEVALBUTEROL 1.25MG/0.5ML NEB INH SCH (16:00)
[2016-11-28] MEDS ORDERED: VNCS125 PO (18:26)
[2016-11-28] MEDS ORDERED: ATRINS INH (18:26)
[2016-11-28] MEDS ORDERED: HPRIS5M SQ (18:26)
[2016-11-28] MEDS ORDERED: PRD20 PO (18:26)
[2016-11-28] MEDS ORDERED: XPNINS1255 INH (18:26)
[2016-11-28] MEDS ORDERED: NUTR-7 PO (18:26)
[2016-11-28] MEDS ORDERED: PRD5 PO (18:26)
--- NOTE | 2016-11-28 18:29 | Discharge Instructions ---
Discharge Instructions Date of Service Nov 28, 2016. Admission Reason for Admission: Diplopia, Elevated Troponin Discharge Discharge Diagnosis / Problem: MYASTHENIA GRAVIS EXACERBATION Discharge Goals Goal(s): Diagnostic testing, Therapeutic intervention Activity Recommendations Activity Level: Bedrest Therapies: Physical Therapy, Occupational Therapy, Speech Therapy . Additional Information Patient informed of condition: Yes Advance Directives: No (UNKNOWN) DNR: No (PATIENT IS FULL CODE) Level of Care: Other ([facility]) Communicable Disease: Yes (C DIFF COLITIS) Prognosis: Other (GUARDED) Oxygen at (LPM): 2 LITERS NASAL CANNULA CONTINUOUS Instructions / Follow-Up Instructions / Follow-Up CONTACT PRECAUTIONS. MONITOR RESPIRATORY STATUS CLOSELY. PLEASE REFER TO SEPARATE MEDICAL RECONCILIATION SHEET FOR UPDATED MED LIST. .PLEASE REFER TO HOSPITAL DISCHARGE SUMMARY. Current Hospital Diet Patient's current hospital diet: AHA Diet (Heart Healthy) Discharge Diet Recommended Diet: AHA Diet (Heart Healthy) Diet Texture: Mechanical Soft (ground) Pending Studies Studies pending at discharge: yes List of pending studies: PLEASE REFER TO HOSPITAL DISCHARGE SUMMARY. Physician Orders On Transfer Special Precautions: CONTACT PRECAUTIONS. MONITOR RESPIRATORY STATUS CLOSELY. PLEASE REFER TO SEPARATE MEDICAL RECONCILIATION SHEET FOR UPDATED MED LIST. PLEASE REFER TO HOSPITAL DISCHARGE SUMMARY. Laboratory Results Lipid Panel Test 11/24/16 04:18 Range/Units Triglycerides Level 151 H 0-150 mg/dl Cholesterol Level 209 H 0-200 mg/dl HDL Cholesterol 69 mg/dl Cholesterol/HDL Ratio 3.0 LDL Cholesterol, Calculated 110 mg/dl Medical Emergencies . Who to Call and When: Medical Emergencies: If at any time you feel your situation is an emergency, please call 911 immediately. . Non-Emergent Contact Non-Emergency issues call your: Primary Care Provider . Past History Medical & Surgical History: (1) Myasthenia gravis (2) CKD (chronic kidney disease), stage III (3) COPD (chronic obstructive pulmonary disease) (4) Nodule of right lung (5) Dyslipidemia (6) Lung cancer (7) Hypothyroidism (8) Bladder cancer (9) History of Clostridium difficile (10) Chronic steroid use (11) Febrile neutropenia (12) Osteoporosis (13) Colitis (14) Diplopia (15) Elevated troponin . "Provider Documentation" section prepared by Vivek Marley. Core Measure Problem Core Measures: None
--- NOTE | 2016-11-28 18:34 | Discharge Summary ---
Discharge Summary Date of Service Nov 28, 2016. Discharge Summary Admission Date: Nov 23, 2016 at 20:30 Discharge Date: Nov 28, 2016 Discharge Disposition: Acute care facility Principal Diagnosis: Acute Hypoxic Respiratory failure, possibly secondary to Myasthenia Gravis Exacerbation Secondary Diagnoses/Problems: Please refer to hospital course below. Procedures: MRI OF THE BRAIN WITHOUT AND WITH IV CONTRAST IMPRESSION: Normal MRI of the brain for age CT CHEST IMPRESSION: 1. No evidence for pulmonary embolus. 2. No significant change in the upper lobe irregular masslike opacities and multiple additional scattered groundglass opacities. Neoplasm remains the diagnosis of exclusion. 3. Cholelithiasis. 4. No new focal lung consolidations. Consultations: NEUROLOGIST DR. GILL Pending Studies/Follow-Up: PLEASE REFER TO SEPARATE MEDICAL RECONCILIATION SHEET FOR UPDATED MED LIST. PLEASE REFER TO HOSPITAL COURSE BELOW. Medication Reconciliation New Medications: Heparin Sod (Porcine) (Heparin Sodium) 5,000 Unit/0.5 Ml Inj 5000 UNIT SQ Q8 for 7 Days Ipratropium [place] (Ipratropium [place]) 0.5 Mg/2.5 Ml Nebu 0.5 MG INH Q4R for 7 Days Levalbuterol (Levalbuterol) 1.25 Mg/0.5 Ml Nebu 1.25 MG INH Q4R for 7 Days Nutritional Supplements (Boost) 1 Liq Liq 1 CAN PO BIDM for 7 Days Prednisone (Prednisone) 20 Mg Tab 20 MG PO DAILY for 7 Days, #7 TAB Prednisone (Prednisone) 5 Mg Tab 5 MG PO DAILY for 7 Days, #7 TAB Vancomycin HCl (Vancomycin HCl) 125 Mg/2.5 Ml Susp 125 MG PO QID for 10 Days Continued Medications: Calcium Carbonate-Cholecalcife (Caltrate 600+D) 1 Tab Tab 1 TABS PO DAILY Cholecalciferol (Vitamin D 400 Iu) 400 Unit Cap 400 INTER.UNIT PO DAILY, CAP Levothyroxine Sodium (Levothyroxine Sodium) 100 Mcg Tab 1 TAB PO DAILY for 30 Days, #30 TAB 5 Refills Multivitamin (Multivitamin) Tab 1 TAB PO DAILY, TAB Ondansetron Hcl (Zofran) 8 Mg Tab 8 MG PO TID PRN for Nausea, TAB Prochlorperazine Maleate (Compazine) 10 Mg Tab 10 MG PO Q6H PRN for Nausea, TAB NAUSEA/VOMITING Pyridostigmine [place] (Mestinon Timespan) 180 Mg Tabcr BID Discontinued Medications: Prednisone (Prednisone) 20 Mg Tab 20 MG PO DAILY, TAB Admission Information HPI (per Admitting provider): This is a 76 year old female with PMH of myasthenia gravis, dyslipidemia, hypothyroidism, lung CA, bladder CA, and other problems noted below who presents to the ED for SOB and diplopia. or past Patient reports SOB starting yesterday at rest and with conversation. She reports diplopia for past 2-3 days. Patient reports generalized weakness and fatigue since hospitalized with C. diff in June 2016. 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 Patient states diarrhea initially improved with tx but recently had become watery again. Had 4-5 BM yesterday and none today. She tested positive for C. diff again on 11/07/16. She was treated with Flagyl which finished 4 days ago. She reports chronic swallowing difficulty with food and liquids getting "stuck". Has chronic speech stuttering but no acute change. She reports urinary incontinence and urgency which is unusual for her. Denies fever , chills, focal weakness or numbness, dizziness, VILLAR, URi symptoms, cough, chest pain, abdominal pain, N/V, flank pain, edema, calf pain. Pt follows with Dr. Carlos for neurology. Denies missed doses of Mestinon. Pt follows with Dr. Alvarez for oncology. Pt states last chemo was October 23, but chemo was held for recent C. diff with plan to resume on November 27. Physical Exam (per Admitting): General Appearance: WD/WN, no apparent distress Head: normocephalic, atraumatic Eyes: normal inspection, PERRL, EOMI, sclerae normal, + pertinent finding ( prefers to close the left eye for relief of diplopia) ENT: hearing grossly normal, pharynx normal Neck: supple, trachea midline Respiratory/Chest: lungs clear, normal breath sounds, no respiratory distress Cardiovascular: regular rate, rhythm, no murmur Abdomen/GI: normal bowel sounds, non tender, soft Extremities/Musculoskelatal: no calf tenderness, no pedal edema Neurologic/Psych: sign wirer II-XII nml as tested, no motor/sensory deficits, alert , normal mood/affect, oriented x 3 Skin: normal color, warm/dry Hospital Course Acute Hypoxic Respiratory failure, possibly secondary to Myasthenia Gravis Exacerbation - noted in the afternoon today 11/28/16 - was 72% on room air earlier, placed on nasal cannula improved to 99% on 2 liters nasal cannula patient not in distress, speaks in sentences with no effort - STAT CXR: no signs of pneumonia VC this AM 1L - discussed with Neurology patient may be having progression of MG Exacerbation recommend transfer to [facility] for possible plasma exchange - discussed with patient and she is agreeable with the plan discussed with Dr. Jiménez - [facility] Neurologist, and she kindly accepted the patient Leukocytosis WBC increased to 13k today from 7k afebrile (+) foul smelling urine urinalysis and urine culture pending has nephrostomy tube in place monitor Diplopia chief complain on admission 11/21/16 -MRI /MRA of brain -no acute CVA - Likely due to mild MG flare - Prednisone increased to 25mg po daily from 20mg Mestinon continued - diplopia about the same as per patient Dizzy Spells/Lightheadedness - Likely due to dehydration caused by diarrhea - resolved C. 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 -EKG shows incomplete RBBB with frequent PVC - Echo; -- Conclusions -- * The study was technically difficult. * A contrast injection of Definity was performed to improve assessment of LV function. * The left ventricle is normal in size. * There is mild concentric left ventricular hypertrophy. * No regional wall motion abnormalities noted. * Left ventricular systolic function is normal. * Ejection Fraction = 60-65%. * Grade I diastolic dysfunction, (abnormal relaxation pattern). * The interatrial septum is intact with no evidence for an atrial septal defect. * Injection of contrast documented no interatrial shunt. Dysphagia -Speech evaluation recommend mechanical soft diet -Aspiration precaution Lung Cancer Bladder Cancer s/p Left Nephrostomy tube placement currently on Opdivo therapy (last chemo 11/06/16) follows with Dr. Jose Alvarez Hypothyroidism: Continue Levothyroxine -TSH level is normal Code Status: FULL CODE DVT Prophylaxis: Moderate risk. Sq Heparin given Disposition: transfer to [facility] today Total time spent on discharge = 70 minutes This includes examination of the patient, discharge planning, medication reconciliation, and communication with other providers. Discharge Instructions Discharge Instructions Date of Service Nov 28, 2016. Admission Reason for Admission: Diplopia, Elevated Troponin Discharge Discharge Diagnosis / Problem: MYASTHENIA GRAVIS EXACERBATION Discharge Goals Goal(s): Diagnostic testing, Therapeutic intervention Activity Recommendations Activity Level: Bedrest Therapies: Physical Therapy, Occupational Therapy, Speech Therapy . Additional Information Patient informed of condition: Yes Advance Directives: No (UNKNOWN) DNR: No (PATIENT IS FULL CODE) Level of Care: Other ([facility]) Communicable Disease: Yes (C DIFF COLITIS) Prognosis: Other (GUARDED) Oxygen at (LPM): 2 LITERS NASAL CANNULA CONTINUOUS Instructions / Follow-Up Instructions / Follow-Up CONTACT PRECAUTIONS. MONITOR RESPIRATORY STATUS CLOSELY. PLEASE REFER TO HOSPITAL DISCHARGE SUMMARY. Current Hospital Diet Patient's current hospital diet: AHA Diet (Heart Healthy) Discharge Diet Recommended Diet: AHA Diet (Heart Healthy) Diet Texture: Mechanical Soft (ground) Pending Studies Studies pending at discharge: yes List of pending studies: PLEASE REFER TO HOSPITAL DISCHARGE SUMMARY. Physician Orders On Transfer Special Precautions: CONTACT PRECAUTIONS. MONITOR RESPIRATORY STATUS CLOSELY. PLEASE REFER TO HOSPITAL DISCHARGE SUMMARY. Laboratory Results Lipid Panel Test 11/24/16 04:18 Range/Units Triglycerides Level 151 H 0-150 mg/dl Cholesterol Level 209 H 0-200 mg/dl HDL Cholesterol 69 mg/dl Cholesterol/HDL Ratio 3.0 LDL Cholesterol, Calculated 110 mg/dl Medical Emergencies . Who to Call and When: Medical Emergencies: If at any time you feel your situation is an emergency, please call 911 immediately. . Non-Emergent Contact Non-Emergency issues call your: Primary Care Provider . Past History Medical & Surgical History: (1) Myasthenia gravis (2) CKD (chronic kidney disease), stage III (3) COPD (chronic obstructive pulmonary disease) (4) Nodule of right lung (5) Dyslipidemia (6) Lung cancer (7) Hypothyroidism (8) Bladder cancer (9) History of Clostridium difficile (10) Chronic steroid use (11) Febrile neutropenia (12) Osteoporosis (13) Colitis (14) Diplopia (15) Elevated troponin . "Provider Documentation" section prepared by Vivek Marley. Core Measure Problem Core Measures: None
== END 2016-11-28 22:00 | disposition short-term general hospital (02) | DRG 56 ==
LOC: ENRESERVDT → ENRESERVTM → EDBD 17:58 → C.ED 17:59 → C.2T 20:30 → UNDOADMIN 20:30
PROVIDERS: ADMIT Hospitalist; ATTEND Internal Medicine
DX: G70.01 Myasthenia gravis with (acute) exacerbation (principal); A04.7 Enterocolitis due to Clostridium difficile; J96.01 Acute respiratory failure with hypoxia; E11.21 Type 2 diabetes mellitus with diabetic nephropathy; N18.3 Chronic kidney disease, stage 3 (moderate); J44.9 Chronic obstructive pulmonary disease, unspecified; M81.0 Age-related osteoporosis without current pathological fracture; Z87.891 Personal history of nicotine dependence; E78.5 Hyperlipidemia, unspecified; H53.2 Diplopia; E03.9 Hypothyroidism, unspecified; E86.0 Dehydration; I45.10 Unspecified right bundle-branch block; I49.3 Ventricular premature depolarization; Z85.51 Personal history of malignant neoplasm of bladder; Z85.118 Personal history of other malignant neoplasm of bronchus and lung; Z92.3 Personal history of irradiation